=== PATIENT | female | born 1940 | race Caucasian/White ===

== ENCOUNTER 2017-04-13 10:32 | Inpatient (IN) ==
--- NOTE | 2017-04-13 10:44 | Emergency Department Report ---
Medical Clearance HPI - General Chief complaint: Medical Clearance Stated complaint: generations evaluation Time Seen by Provider: 04/13/17 10:43 Source: patient, family Mode of arrival: ambulatory Limitations: no limitations - History of Present Illness HPI Narrative: Patient is a 76-year-old female brought to the emergency room for evaluations for clearance for generations. Patient was apparently inpatient psychiatric at [facility] for dementia with behavioral disturbances discharge 04/08. Patient having increasing difficulty with cares at home, seems almost manic, family contacted generations was accepted patient for admission, as patient has not seen a medical physician in over a week patient was referred to the ER for medical clearance. Patient is laughing no acute distress. MD complaint: medical clearance requested Reason for Medical Clearance: psychiatric condition Traumatic Symptoms: denies traumatic injury Home medications: Home Medications Medication Instructions Recorded Confirmed Acetaminophen [Acetaminophen Extra 1,000 mg PO PRN PRN 04/13/17 04/13/17 Strength] Metoprolol Tartrate [Lopressor] 25 mg PO BID 04/13/17 04/13/17 Quetiapine [Seroquel] 100 mg PO HS 04/13/17 04/13/17 Temazepam [Restoril] 15 mg PO HS PRN 04/13/17 04/13/17 Temazepam [Restoril] 30 mg PO HS 04/13/17 04/13/17 Allergies/Adverse reactions: Allergies Allergy/AdvReac Type Severity Reaction Status Date / Time clindamycin Allergy Verified 04/13/17 10:51 haloperidol [From Haldol] Allergy Restlessnes Verified 04/13/17 10:51 s nitrofurantoin Allergy Verified 04/13/17 10:51 [From Macrobid] Review of Systems Constitutional: Denies: fever, chills, weakness ENT: Denies: throat pain, dental pain Cardiovascular: Denies: chest pain Respiratory: Denies: cough, dyspnea, wheezes Gastrointestinal: Denies: abdominal pain, nausea, vomiting Musculoskeletal: Denies: back pain Psychiatric: Denies: anxiety, depression Endocrine: Denies: fatigue, heat or cold intolerance PFSH Patient Stated Medical History Seizures Yes: HX OF DUE TO LOW SODIUM Hypertension Yes Valvular Heart Disease Yes: MITRAL AND TRICUSPID VALVE PROLAPSE Other Cardiology Yes: HX OF HYPONATREMIA Hx Urinary Tract Infection Yes: FREQUENT - Social History Smoking status: Never smoker Substance use type: does not use Alcohol intake frequency: does not drink Physical Exam - Limitations Limitations: no limitations - General General appearance: alert, in no apparent distress - Eye Eye exam: Present: PERRL, EOMI - ENT ENT exam: Present: normal oropharynx, mucous membranes moist - Neck Neck exam: Present: full ROM, trachea midline - Chest Chest inspection: Present: symmetric chest wall rise. Absent: tenderness - Respiratory Respiratory exam: Present: normal lung sounds bilaterally. Absent: respiratory distress, wheezes, stridor - Cardiovascular Cardiovascular exam: Present: regular rate, normal rhythm, normal heart sounds - Abdominal Exam Abdominal exam: Present: soft, normal bowel sounds. Absent: distention, tenderness - Extremities Exam Extremities exam: Present: full ROM, other (patient does bilateral 1+ edema). Absent: tenderness - Skin Skin exam: Present: warm, dry - Neurological Exam Neurological exam: Present: alert, oriented X3 - Psychiatric Psychiatric exam: Present: other (pleasant laughing) Course Vital Signs Temperature 97.5 F 04/13/17 10:34 Pulse Rate 105 H 04/13/17 10:34 Respiratory Rate 20 04/13/17 10:34 Blood Pressure 162/79 H 04/13/17 10:34 Pulse Oximetry 97 04/13/17 10:34 Temperature 97.5 F 04/13/17 10:34 Pulse Rate 105 H 04/13/17 10:34 Respiratory Rate 20 04/13/17 10:34 Blood Pressure 162/79 H 04/13/17 10:34 Pulse Oximetry 97 04/13/17 10:34 Medical Clearance - [facility] Narrative Medical decision making narrative: He does have some mild signs of urinary tract infection, does have greater than 50 epithelial cells did discuss with hospitalist service, they will wait, cultures pending no treatment at this time. Patient is cleared for generations - Medical Records Attestation: I reviewed the patient's medical records. - Lab Data Attestation: I reviewed the patient's lab results. Result diagrams: 04/13/17 11:40 04/13/17 11:40 Lab Results 04/13/17 04/13/17 04/13/17 Range/Units 11:40 11:40 12:09 WBC 6.6 (4.5-11.0) T/MM3 RBC 4.04 (4.00-5.20) M/MM3 Hgb 12.5 (12-16) GM/DL Hct 38.7 (36-46) % MCV 95.8 (80-100) UM3 MCH 30.9 (26-34) UUG MCHC 32.3 (31-37) GM/DL RDW Std Deviation 42.9 (36.9-50.2) FL Plt Count 277 (130-400) T/MM3 MPV 9.2 L (9.4-12.4) UM3 Immature Gran % (Auto) 0.2 (0.0-0.5) % Neut % (Auto) 53.0 (33-66) % Lymph % (Auto) 36.9 (23-45) % [place] % (Auto) 5.6 (0-9.0) % Eos % (Auto) 3.5 (0-4) % Baso % (Auto) 0.8 (0-2) % Neut # (Auto) 3.5 (1.8-7.7) T/MM3 Lymph # (Auto) 2.4 (1-4.8) T/MM3 [place] # (Auto) 0.4 (0-0.8) T/MM3 Eos # (Auto) 0.2 (0-0.5) T/MM3 Baso # (Auto) 0.1 (0-0.2) T/MM3 Abs Immat Gran (auto) 0.01 (0.00-0.03) T/MM3 Turbidity < 20 (0-20) Sodium 143 (134-144) MEQ/L Potassium 3.7 (3.6-5) MEQ/L Chloride 105 (98-107) MEQ/L Carbon Dioxide 28 (22-30) MEQ/L Anion Gap 10 (5-15) MEQ/L BUN 23.0 H (7-17) MG/DL Creatinine 0.7 (0.7-1.2) MG/DL GFR Calculation 82 BUN/Creatinine Ratio 33 H (6-26) RATIO Glucose 128 H (65-110) MG/DL Calculated Osmolality 281 H (261-280) MOSM/KG Calcium 9.5 (8.4-10.2) MG/DL Total Bilirubin 0.20 (0.20-1.30) MG/DL Icterus Index < 2 (0-7) AST 24 (14-36) U/L ALT 24 (9-52) U/L Alkaline Phosphatase 106 (38-126) U/L Total Protein 7.6 (6.3-8.2) G/DL Albumin 4.3 (3.5-5.0) G/DL Globulin 3.3 (2.4-3.6) G/DL Albumin/Globulin Ratio 1.3 (1.1-2.2) RATIO TSH 1.37 (0.47-4.68) MIU/L Specimen Hemolysis < 15 (0-25) Ur Collection Type Urine, void-cc/notcc Urine Color Yellow (YELLOW) Urine Clarity Clear Urine pH 6.0 (5.0-8.0) Ur Specific [place] 1.025 (1.015-1.025) Urine Protein 1+ A (NEGATIVE) Urine Glucose (UA) Negative (NEGATIVE) Urine Ketones Negative (NEGATIVE) Urine Occult Blood Trace-intact (NEGATIVE) Urine Nitrate Negative (NEGATIVE) Urine Bilirubin Negative (NEGATIVE) Urine Urobilinogen 0.2 (NORMAL) EU/DL Ur Leukocyte Esterase 1+ A (NEGATIVE) Urine RBC 1-3 (0-3) /HPF Urine WBC 10-20 H (0-5) /HPF Ur Squamous Epith Cells >50 Urine Bacteria 2+ H (NEGATIVE) Urine Mucus Present Ur Culture Indicated? Cult reflexed &setup - Radiology Data Attestation: I reviewed the patient's radiology results. No acute cardiopulmonary findings - EKG Data EKG #1 EKG attestation: Yes: I reviewed and interpreted this EKG. EKG shows normal: sinus rhythm Rate: tachycardia Rhythm: NSR Interpretation: no acute changes Disposition Clinical Impression: Dementia with behavioral disturbance Qualifiers: Dementia type: unspecified type Qualified Code(s): F03.91 - Unspecified dementia with behavioral disturbance Disposition: 67 To [facility] Generations Condition: Stable Prescriptions: No Action Temazepam [Restoril] 15 mg PO HS PRN PRN Reason: Insomnia Metoprolol Tartrate [Lopressor] 25 mg PO BID Acetaminophen [Acetaminophen Extra Strength] 1,000 mg PO PRN PRN PRN Reason: Pain Temazepam [Restoril] 30 mg PO HS Quetiapine [Seroquel] 100 mg PO HS Time of Disposition: 12:53 - Seen By: physician
--- NOTE | 2017-04-13 11:02 | XRay Report ---
Indication: cardiac evaluation PROCEDURE: XR chest 1V: Encounter: Initial Comparison: None FINDINGS: The lungs are clear. There is no abnormal airspace opacity, pleural effusion or pneumothorax identified. The heart size, pulmonary vasculature and mediastinum are within normal limits. Mild scoliosis and degenerative change in the spine IMPRESSION: No acute cardiopulmonary abnormality. .
--- OUTSIDE RECORDS SUMMARY | 2017-04-13 11:07 | External Medical Summary | Referral Summary ---
:1940 Author Care Team Providers Name Role Phone Yaya Lizarraga Primary Care Physician Encounter [facility] [id number] Date(s): 04/30/14 - 04/30/14 [facility], Shanika, Internal Medicine [address] [id number] Discharge Diagnosis: Hypertension Discharge Diagnosis: Osteoarthritis of both knees Discharge Diagnosis: Osteoporosis Discharge Diagnosis: Hyperlipidemia Discharge Diagnosis: Mitral valve disease Discharge Diagnosis: Urinary incontinence Discharge Disposition: Home or Self Care Attending Physician: Yaya Lizarraga MD Admitting Physician: Yaya Lizarraga MD Vital Signs Most recent to oldest [Reference Range]: 1 Peripheral Pulse Rate [60-100 bpm] 80 bpm (04/30/14 4:10 PM) Blood Pressure [90-140/60-90 mmHg] 114/74 mmHg (04/30/14 4:10 PM) Problem List Condition Effective Dates Status Health Status Informant Borderline glaucoma Active (disorder)(Confirmed) Bunion, left foot(Confirmed) Active Breast cancer in situ(Confirmed) Active Benign Keratoses(Confirmed) Active Dry eyes(Confirmed) Active Preglaucoma(Confirmed) Active Headaches(Confirmed) Active Hyperlipidemia(Confirmed) Active Hypertension(Confirmed) Active Irregular heart rhythm(Confirmed) Active Basal cell carcinoma of skin, site Active unspecified(Confirmed) Breast cancer(Confirmed)1 Active Mitral valve disease(Confirmed) Active Osteoarthritis of both Active knees(Confirmed) Osteoporosis(Confirmed) Active Palpitations(Confirmed) Active Glaucoma, pigmentary(Confirmed) Active Pure hypercholesterolemia(Confirmed) Active Other and combined 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 Tear film insufficiency, Active unspecified(Confirmed) Tension headaches(Confirmed) Active Trigeminal neuralgia(Confirmed) Active Urinary incontinence(Confirmed)2 Active Vertigo(Confirmed) Active 1L [id number] sling Allergies, Adverse Reactions, Alerts Substance Reaction Severity Status amoxicillin diarrhea Active amoxicillin-clavulanate diarrhea Active meloxicam DIARRHEA Active Medications atenolol 25 mg oral tablet 1 tabs, Oral, Bedtime (once a day), # 90 tabs, 3 Refill(s), Pharmacy: [id number], 1 tabs Oral Bedtime (once a day) Start Date: 03/02/14 Status: Ordered Results No data available for this section Immunizations Vaccine Date Refusal Reason tetanus/diphth/pertuss (Tdap) adult/adol 02/07/13 tetanus/diphth/pertuss (Tdap) adult/adol 04/08/07 influenza virus vaccine, live 12/21/12 influenza virus vaccine, live 01/12/11 pneumococcal 23-polyvalent vaccine 10/17/08 pneumococcal 23-polyvalent vaccine 01/13/01 zoster vaccine live 10/04/11 Procedures Procedure Date Related Diagnosis Body Site BOOGIE BSO - Total abdominal hysterectomy and bilateral 1997 salpingo-oophorectomy Bladder Sling1 Colonoscopy abnormal2 L Lumpectomy3 Sacral Colpopexy 1Urinary [id number] done in 2011 and Hyperplastic polyps removed. Has Hx of Tubular adenomas. Repeat in 5 years.3Breast Cancer Social History Social History Type Response Smoking Status Never smoker Assessment and Plan Extracted from: Title: Office Visit Note Author: Yaya Lizarraga MD Date: 04/30/14 Assessment/Plan Hyperlipidemia For hyperlipidemia she'll return to the lab fasting later this week and I'll let her know the results. Ordered: Lipid Panel Office Visit Level 5 Est 88526 Hypertension She will continue her atenolol. I'll update all of her lab and mail a copy with her note. Ordered: CBC w/ Differential Comprehensive Metabolic Panel Office Visit Level 5 Est 96522 Mitral valve disease In light of her history of mitral valve prolapse and increased shortness of air with exertion I'll have her repeat a 2-D echocardiogram. I'll let her know the results or the findings of this. Ordered: Request for Cardiovascular Echo Osteoarthritis of both knees For osteoarthritis of her knees shows see Dr. Bartlett. She is seen him before. Ordered: Internal Referral to Orthopedic Osteoporosis She'll repeat a bone density test in one to 2 years. I think this is stable. If all of her lab looks okay all see her back in one year or as needed. I did accomplish a comprehensive annual history and physical exam today. Urinary incontinence Get a consult with Dr. Suleman Weeks regarding her concerns for her bladder relaxation and incontinence. Ordered: External Specialty Referral Referrals to Other Providersknee pain, referred to: Christopher Bartlett MD Referred by: Yaya Lizarraga MD incontinence of urine, referred to: Suleman Weeks MD Referred by: Yaya Lizarraga MD
--- OUTSIDE RECORDS SUMMARY | 2017-04-13 11:07 | External Medical Summary | Referral Summary ---
:1940 Author Organization [facility], Shanika, Internal Medicine Address [address] [place] [address] Care Team Providers Name Role Phone Yaya Lizarraga Primary Care Physician Encounter [facility] [id number] Date(s): 11/14/15 - 11/14/15 [facility] Jose [place], Internal Medicine [address] [place] [address] [place] Discharge Diagnosis: Dysuria Discharge Diagnosis: Mitral valve disease Discharge Diagnosis: Hypertension Discharge Diagnosis: Abnormal weight gain Discharge Diagnosis: Heel pain Discharge Disposition: 01-Home or Self Care Attending Physician: Yaya Lizarraga MD Vital Signs Most recent to oldest [Reference Range]: 1 Peripheral Pulse Rate [60-100 bpm] 84 bpm (11/14/15 3:31 PM) Blood Pressure [90-140/60-90 mmHg] 140/80 mmHg (11/14/15 3:31 PM) Problem List Condition Effective Dates Status Health Status Informant Hip pain, left(Confirmed) Active Borderline glaucoma Active (disorder)(Confirmed) Bunion, left foot(Confirmed) Active Breast cancer in situ(Confirmed) Active Combined senile cataract(Confirmed) Active Benign Keratoses(Confirmed) Active Dry eyes(Confirmed) Active Urinary incontinence(Confirmed)1 Active Preglaucoma(Confirmed) Active Status post total left knee Active replacement(Confirmed) Headaches(Confirmed) Active Hyperlipidemia(Confirmed) Active Hypertension(Confirmed) Active Irregular heart rhythm(Confirmed) Active Basal cell carcinoma of skin, site Active unspecified(Confirmed) Breast cancer(Confirmed)2 Active Mitral valve disease(Confirmed) Active Osteoarthritis of both Active knees(Confirmed) Osteoporosis(Confirmed) Active Palpitations(Confirmed) Active Glaucoma, pigmentary(Confirmed) Active Primary osteoarthritis of right Active knee(Confirmed) Pure hypercholesterolemia(Confirmed) Active Other and combined 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 Tear film insufficiency, Active unspecified(Confirmed) Tension headaches(Confirmed) Active Trigeminal neuralgia(Confirmed) Active Vertigo(Confirmed) Active 1Bladder [id number] Lumpectomy Allergies, Adverse Reactions, Alerts Substance Reaction Severity Status amoxicillin diarrhea Active amoxicillin-clavulanate diarrhea Active meloxicam DIARRHEA Active Medications Aleve 220 mg, Oral, BID, 0 Refill(s) Start Date: 05/08/14 Status: Orderedatenolol 25 mg oral tablet See Instructions, 1 TABS ORAL BEDTIME (ONCE A DAY), # 90 tabs, 3 Refill(s), eRx : [id number], 1 TABS ORAL BEDTIME (ONCE A DAY) Start Date: 03/11/15 Status: OrderedCalcium 600+D 2 tabs, Oral, Daily, 0 Refill(s) Start Date: 05/08/14 Status: OrderedFosamax 70 mg oral tablet 70 mg 1 tabs, Oral, qWeek, # 12 tabs, 4 Refill(s), Pharmacy: [email or web address] [id number], 1 tabs OralqWeek Start Date: 06/17/15 Status: Orderedmultivitamin 1 tabs, Oral, Daily, 0 Refill(s) Start Date: 08/07/14 Status: OrderedVitamin D3 2000 intl units oral tablet 1 tabs, Oral, Daily, 0 Refill(s) Start Date: 05/08/14 Status: Ordered Results Hematology Most recent to oldest [Reference Range]: 1 WBC [4.8-10.8 10*3/uL] 7.2 10*3/uL (11/14/15 4:35 PM) RBC [4.00-5.20] 4.30 (11/14/15 4:35 PM) Hgb [12.0-16.0 gm/dL] 13.7 gm/dL (11/14/15 4:35 PM) Hct [37.0-47.0 %] 39.6 % (11/14/15 4:35 PM) MCV [82.0-99.0 fL] 92.1 fL (11/14/15 4:35 PM) MCH [27.0-32.0 pg] 31.9 pg (11/14/15 4:35 PM) MCHC [32.0-36.0 gm/dL] 34.6 gm/dL (11/14/15 4:35 PM) RDW [11.5-14.5 %] 12.8 % (11/14/15 4:35 PM) Platelet [150-400 10*3/uL] 263 10*3/uL (11/14/15 4:35 PM) MPV [8.8-14.8 fL] 9.8 fL (11/14/15 4:35 PM) Immature Granulocytes [0.0-1.0 %] 0.3 % (11/14/15 4:35 PM) Neutrophils [51-75 %] 60 % (11/14/15 4:35 PM) Lymphocytes [20-46 %] 29 % (11/14/15 4:35 PM) Monocytes [4-11 %] 8 % (11/14/15 4:35 PM) Eosinophils [0-4 %] 2 % (11/14/15 4:35 PM) Basophils [0-2 %] 1 % (11/14/15 4:35 PM) Neutro Absolute [1.90-7.00 10*3] 4.34 10*3 (11/14/15 4:35 PM) Lymph Absolute [0.80-3.30 10*3] 2.10 10*3 (11/14/15 4:35 PM) [place] Absolute [0.30-1.00 10*3] 0.57 10*3 (11/14/15 4:35 PM) Eos Absolute [0.00-0.50 10*3] 0.12 10*3 (11/14/15 4:35 PM) Baso Absolute [0.00-0.20 10*3] 0.05 10*3 (11/14/15 4:35 PM) Chemistry Most recent to oldest [Reference Range]: 1 Sodium Lvl [135-144 mEq/L] 140 mEq/L (11/14/15 4:35 PM) Potassium Lvl [3.5-5.2 mEq/L] 4.1 mEq/L (11/14/15 4:35 PM) Chloride [99-111 mEq/L] 103 mEq/L (11/14/15 4:35 PM) CO2 [22-31 mEq/L] 26 mEq/L (11/14/15 4:35 PM) AGAP [3-20] 11 (11/14/15 4:35 PM) BUN [10-20 mg/dL] 12 mg/dL (11/14/15 4:35 PM) Glucose Lvl [70-99 mg/dL] 97 mg/dL (11/14/15 4:35 PM) Creatinine Lvl [0.57-1.11 mg/dL] 0.66 mg/dL (11/14/15 4:35 PM) Calcium Lvl [8.9-10.5 mg/dL] 9.9 mg/dL (11/14/15 4:35 PM) Albumin Lvl [3.4-4.8 gm/dL] 4.4 gm/dL (11/14/15 4:35 PM) Total Protein [6.0-7.6 gm/dL] 6.9 gm/dL (11/14/15 4:35 PM) Globulin [1.8-4.0 gm/dL] 2.5 gm/dL (11/14/15 4:35 PM) ALT [0-55 U/L] 14 U/L (11/14/15 4:35 PM) AST [5-34 U/L] 23 U/L (11/14/15 4:35 PM) Alk Phos [40-150 U/L] 74 U/L (11/14/15 4:35 PM) Bili Total [0.2-1.2 mg/dL] 0.5 mg/dL (11/14/15 4:35 PM) BNP [0-99 pg/mL] 55 pg/mL (11/14/15 4:35 PM) TSH with Reflex Free T4 [0.35-4.94] 1.56 (11/14/15 4:35 PM) Urinalysis Most recent to oldest [Reference Range]: 1 UA Color Yellow (11/14/15 4:35 PM) UA Appear Cloudy *ABN* (11/14/15 4:35 PM) UA pH [5.0-8.0] 7.0 (11/14/15 4:35 PM) UA Leuk Est [Negative] Pos 3+ *ABN* (11/14/15 4:35 PM) UA Nitrite [Negative] Positive *ABN* (11/14/15 4:35 PM) UA Protein [Negative] Negative (11/14/15 4:35 PM) UA Glucose [Negative] Negative (11/14/15 4:35 PM) UA Ketones [Negative] Negative (11/14/15 4:35 PM) UA Urobilinogen [<1.0 mg/dL] 0.2 mg/dL (11/14/15 4:35 PM) UA Bili [Negative] Negative (11/14/15 4:35 PM) UA Blood [Negative] Pos 1+ *ABN* (11/14/15 4:35 PM) UA Spec Grav [1.003-1.030] 1.004 (11/14/15 4:35 PM) Type Clean Catch (11/14/15 4:35 PM) UA WBC [0-4 /HPF] >50 /HPF *ABN* (11/14/15 4:35 PM) UA RBC [0-4] 0-4 (11/14/15 4:35 PM) Epithelial Cells 0-2 (11/14/15 4:35 PM) UA Bacteria Occasional *ABN* (11/14/15 4:35 PM) UA Hyal Cast [0-3] 1-3 (11/14/15 4:35 PM) Immunizations Vaccine Date Refusal Reason tetanus/diphth/pertuss (Tdap) adult/adol 02/07/13 tetanus/diphth/pertuss (Tdap) adult/adol 04/08/07 influenza virus vaccine, live 12/21/12 influenza virus vaccine, live 01/12/11 pneumococcal 13-valent conjugate vaccine 05/17/15 pneumococcal 23-polyvalent vaccine 10/17/08 pneumococcal 23-polyvalent vaccine 01/13/01 zoster vaccine live 10/04/11 Procedures Procedure Date Related Diagnosis Body Site L TKA [facility] BUHR1 08/20/14 Colonoscopy abnormal2 04/15/11 BOOGIE BSO - Total abdominal hysterectomy and 1996 bilateral salpingo-oophorectomy Bladder Sling3 L Lumpectomy4 Sacral Colpopexy 1715.36 OA GLOBAL ENDS 11/18/20142Last done in 2011 and Hyperplastic polyps removed. Has Hx of Tubular adenomas. Repeat in 5 years.3Urinary [id number] Cancer Social History Social History Type Response Smoking Status Never smoker Assessment and Plan Extracted from: Title: Office Visit Note Author: Yaya Lizarraga MD Date: 11/14/15 Assessment/Plan 1.Heel pain She also had heel pain we discussed at the end and I did demonstrate to her how to do stretching exercises for a few months. Ordered: Office Visit Level 4 Est 85104 Return to Clinic 2.Hypertension Blood pressure looks fine today so made no change in treatment for this. Ordered: CBC w/ Differential Comprehensive Metabolic Panel Office Visit Level 4 Est 63800 Return to Clinic TSH with Reflex Free T4 XR Chest 2 Views 3.Abnormal weight gain She does not appear to have abnormal weight gain. Ordered: Albumin/Creatinine Ratio, Urine B-Type Natriuretic Peptide CBC w/ Differential Comprehensive Metabolic Panel Office Visit Level 4 Est 85460 Return to Clinic TSH with Reflex Free T4 4.Mitral valve disease For her mitral valve disease and her tricuspid regurgas well as elevated pulmonaryartery pressures I'll recheck a 2-D echocardiogram,chest x-ray,basic lab. No george tment started or initiated today. I'll see her back here in 2 weeks to go over all of this with her. Ordered: B-Type Natriuretic Peptide CBC w/ Differential Comprehensive Metabolic Panel Office Visit Level 4 Est 42209 Request for Cardiovascular Echo Return to Clinic TSH with Reflex Free T4 XR Chest 2 Views 5.Dysuria For her dysuria we will check a UA and treat accordingly. That's being done today. Ordered: Albumin/Creatinine Ratio, Urine Office Visit Level 4 Est 16193 Urinalysis with Culture if Indicated Referrals to Other Providers Referred by: Yaya Lizarraga MD
--- OUTSIDE RECORDS SUMMARY | 2017-04-13 11:07 | External Medical Summary | Referral Summary ---
:1940 Author Organization [facility], Merry Martinez, Orthopedics Address [address] [place] [address] Care Team Providers Name Role Phone Yaya Lizarraga Primary Care Physician Encounter [facility] Date(s): 09/18/15 - 09/18/15 [facility] [address], Orthopedics [address] [place] [address]- [place] Discharge Diagnosis: Status post total left knee replacement Discharge Diagnosis: Primary osteoarthritis of right knee Discharge Diagnosis: Hip pain, left Discharge Disposition: 01-Home or Self Care Attending Physician: Christopher Bartlett MD Admitting Physician: Christopher Bartlett MD Vital Signs Most recent to oldest [Reference Range]: 1 Respiratory Rate [14-20 br/min] 20 br/min (09/18/15 8:51 AM) Problem List Condition Effective Dates Status Health [...] Active Trigeminal neuralgia(Confirmed) Active Vertigo(Confirmed) Active 1Bladder [id number] Lumpectomy Allergies, Adverse Reactions, Alerts Substance Reaction Severity Status amoxicillin diarrhea Active amoxicillin-clavulanate diarrhea Active meloxicam DIARRHEA Active Medications Aleve 220 mg, Oral, BID, 0 Refill(s) Start Date: 05/08/14 Status: Orderedatenolol 25 mg oral tablet See Instructions, 1 TABS ORAL BEDTIME (ONCE A DAY), # 90 tabs, 3 Refill(s), eRx : [facility] [id number], 1 TABS ORAL BEDTIME (ONCE A DAY) Start Date: 03/11/15 Status: OrderedCalcium 600+D 2 tabs, Oral, Daily, 0 Refill(s) Start Date: 05/08/14 Status: OrderedFosamax 70 mg oral tablet 70 mg 1 tabs, Oral, qWeek, # 12 tabs, 4 Refill(s), Pharmacy: [facility] [id number], 1 tabs OralqWeek Start Date: 06/17/15 Status: Orderedmultivitamin 1 tabs, Oral, Daily, 0 Refill(s) Start Date: 08/07/14 Status: OrderedVitamin D3 2000 intl units oral tablet 1 tabs, Oral, Daily, 0 Refill(s) Start Date: 05/08/14 Status: Ordered Results No data available for this section Immunizations Vaccine Date Refusal Reason tetanus/diphth/pertuss (Tdap) adult/adol 02/07/13 tetanus/diphth/pertuss (Tdap) adult/adol 04/08/07 influenza virus vaccine, live 12/21/12 influenza virus vaccine, live 01/12/11 pneumococcal 13-valent conjugate vaccine 05/17/15 pneumococcal 23-polyvalent vaccine 10/17/08 pneumococcal 23-polyvalent vaccine 01/13/01 zoster vaccine live 10/04/11 Procedures Procedure Date Related Diagnosis Body Site Arthrocentesis, aspiration and/or injection, major 09/18/15 joint or bursa (eg, shoulder, hip, knee, subacromial bursa); without ultrasound guidance L TKA [facility] BUHR1 08/20/14 Colonoscopy abnormal2 04/15/11 BOOGIE BSO - Total abdominal hysterectomy and 1996 bilateral salpingo-oophorectomy Bladder Sling3 L Lumpectomy4 Sacral Colpopexy 1715.36 OA GLOBAL ENDS 11/18/20142Last done in 2011 and Hyperplastic polyps removed. Has Hx of Tubular adenomas. Repeat in 5 years.3Urinary [id number] Cancer Social History Social History Type Response Smoking Status Never smoker Assessment and Plan No data available for this section
--- OUTSIDE RECORDS SUMMARY | 2017-04-13 11:07 | External Medical Summary ---
:1940 Author Organization eClinicalWorks Care Team Providers Name Role Phone Anastacio Weaver Provider Role Unavailable Allergies No Known Allergies Problems Problem Type Condition Code Onset Dates Condition Status Problem Palpitation R00.2 Active Problem Mitral insufficiency I34.0 Active Problem SPENCER (dyspnea on exertion) R06.09 Active Problem Hypertension I10 Active Problem Tricuspid insufficiency I07.1 Active Problem MVP (mitral valve prolapse) I34.1 Active Medications No Known Medications Results No Known Results Summary Purpose eClinicalWorks Submission
--- OUTSIDE RECORDS SUMMARY | 2017-04-13 11:07 | External Medical Summary | Referral Summary ---
:1940 Author Organization [facility], [facility] Address [address] [place] [address] Care Team Providers Name Role Phone Yaya Lizarraga Primary Care Physician Encounter [facility] [id number] Date(s): 03/28/15 - 03/28/15 [facility] [address] [place] [address]- [place] Discharge Diagnosis: Disease Discharge Diagnosis: Urinary incontinence Discharge Diagnosis: Hypertension Discharge Disposition: 01-Home or Self Care Attending Physician: Yaya Lizarraga MD Admitting Physician: Yaya Lizarraga MD Referring Physician: Yaya Lizarraga MD Vital Signs Most recent to oldest [Reference Range]: 1 Peripheral Pulse Rate [60-100 bpm] 84 bpm (03/28/15 9:28 AM) Blood Pressure [90-140/60-90 mmHg] 132/74 mmHg (03/28/15 9:28 AM) Problem List Condition Effective Dates Status [...] Active Trigeminal neuralgia(Confirmed) Active Vertigo(Confirmed) Active 1Bladder ckrop6V Lumpectomy Allergies, Adverse Reactions, Alerts Substance Reaction Severity Status amoxicillin diarrhea Active amoxicillin-clavulanate diarrhea Active meloxicam DIARRHEA Active Medications Aleve 220 mg, Oral, BID, 0 Refill(s) Start Date: 05/08/14 Status: Orderedatenolol 25 mg oral tablet See Instructions, 1 TABS ORAL BEDTIME (ONCE A DAY), # 90 tabs, 3 Refill(s), eRx : [facility], 1 TABS ORAL BEDTIME (ONCE A DAY) Start Date: 03/11/15 Status: OrderedCalcium 600+D 2 tabs, Oral, Daily, 0 Refill(s) Start Date: 05/08/14 Status: Orderedmultivitamin 1 tabs, Oral, Daily, 0 Refill(s) Start Date: 08/07/14 Status: OrderedVitamin D3 2000 intl units oral tablet 1 tabs, Oral, Daily, 0 Refill(s) Start Date: 05/08/14 Status: Ordered Results Urinalysis Most recent to oldest [Reference Range]: 1 UA Color Yellow (03/28/15 10:02 AM) UA Appear Turbid *ABN* (03/28/15 10:02 AM) UA pH [5.0-8.0] 7.5 (03/28/15 10:02 AM) UA Leuk Est [Negative] Pos 3+ *ABN* (03/28/15 10:02 AM) UA Nitrite [Negative] Negative (03/28/15 10:02 AM) UA Protein [Negative] Negative (03/28/15 10:02 AM) UA Glucose [Negative] Negative (03/28/15 10:02 AM) UA Ketones [Negative] Negative (03/28/15 10:02 AM) UA Urobilinogen [<1.0 mg/dL] 0.2 mg/dL (03/28/15 10:02 AM) UA Bili [Negative] Negative (03/28/15 10:02 AM) UA Blood [Negative] Pos 2+ *ABN* (03/28/15 10:02 AM) UA Spec Grav [1.003-1.030] 1.009 (03/28/15 10:02 AM) Type Clean Catch (03/28/15 10:02 AM) UA WBC [0-4 /HPF] >50 /HPF *ABN* (03/28/15 10:02 AM) UA RBC [0-4] 5-10 *ABN* (03/28/15 10:02 AM) UA Bacteria Occasional *ABN* (03/28/15 10:02 AM) Immunizations Vaccine Date Refusal Reason tetanus/diphth/pertuss (Tdap) adult/adol 02/07/13 tetanus/diphth/pertuss (Tdap) adult/adol 04/08/07 influenza virus vaccine, live 12/21/12 influenza virus vaccine, live 01/12/11 pneumococcal 23-polyvalent vaccine 10/17/08 pneumococcal 23-polyvalent vaccine 01/13/01 zoster vaccine live 10/04/11 Procedures Procedure Date Related Diagnosis Body Site L TKA [facility] BUHR1 08/20/14 [facility] BSO - Total abdominal hysterectomy and 1996 bilateral salpingo-oophorectomy Bladder Sling2 Colonoscopy abnormal3 L Lumpectomy4 Sacral Colpopexy 1715.36 OA GLOBAL ENDS 11/18/201464876Elkrhxm upbrpcxibpuu7Hasq done in 2011 and Hyperplastic polyps removed. Has Hx of Tubular adenomas. Repeat in 5 years.4Breast Cancer Social History Social History Type Response Smoking Status Never smoker Assessment and Plan Extracted from: Title: Office Visit Note Author: Yaya Lizarraga MD Date: 03/28/15 Assessment/Plan Disease The skin lesion on her nose we will observe and I'll reevaluate this when she returns for scheduled follow-upvisit. Ordered: Office Visit Level 3 Est 20810 Return to Clinic Hypertension Blood pressure is well-controlled today. I'll reevaluate this when I see her back at scheduledappointment for May. Ordered: Office Visit Level 3 Est 87605 Return to Clinic Urinary incontinence In light of the urinary symptoms we will check a UA today and I'll let her know the results and we will treat accordingly. Ordered: Office Visit Level 3 Est 28400 Urinalysis with Culture if Indicated Referrals to Other Providers Referred by: Yaya Lizarraga MD
--- OUTSIDE RECORDS SUMMARY | 2017-04-13 11:07 | External Medical Summary | Referral Summary ---
:1940 Author Organization [facility], [facility] Address [address] [place] [address] Care Team Providers Name Role Phone Yaya Lizarraga Primary Care Physician Encounter [facility] Date(s): 12/04/15 - 12/04/15 [facility] [address] [place], [place] [address] Discharge Diagnosis: Mitral valve disease Discharge Diagnosis: Hypertension Discharge Diagnosis: Acute UTI Discharge Disposition: 01-Home or Self Care Attending Physician: Yaya Lizarraga MD Admitting Physician: Yaya Lizarraga MD Vital Signs Most recent to oldest [Reference Range]: 1 Peripheral Pulse Rate [60-100 bpm] 96 bpm (12/04/15 4:43 PM) Blood Pressure [90-140/60-90 mmHg] 136/78 mmHg (12/04/15 4:43 PM) Problem List Condition Effective Dates Status [...] Breast cancer(Confirmed)2 Active Mitral valve disease(Confirmed) Active Obesity(Confirmed) Active patient Osteoarthritis of both Active knees(Confirmed) Osteoporosis(Confirmed) Active Palpitations(Confirmed) Active Glaucoma, pigmentary(Confirmed) Active Primary osteoarthritis of right Active knee(Confirmed) Pure hypercholesterolemia(Confirmed) Active Other and combined 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 Tear film insufficiency, Active unspecified(Confirmed) Tension headaches(Confirmed) Active Trigeminal neuralgia(Confirmed) Active Vertigo(Confirmed) Active 1Bladder [id number] Lumpectomy Allergies, Adverse Reactions, Alerts Substance Reaction Severity Status amoxicillin diarrhea Active amoxicillin-clavulanate diarrhea Active meloxicam DIARRHEA Active Medications Aleve 220 mg, Oral, BID, 0 Refill(s) Start Date: 05/08/14 Status: Orderedatenolol 25 mg oral tablet See Instructions, 1 TABS ORAL BEDTIME (ONCE A DAY), # 90 tabs, 3 Refill(s), eRx : [facility] 25196, 1 TABS ORAL BEDTIME (ONCE A DAY) Start Date: 03/11/15 Status: OrderedCalcium 600+D 2 tabs, Oral, Daily, 0 Refill(s) Start Date: 05/08/14 Status: OrderedFosamax 70 mg oral tablet 70 mg 1 tabs, Oral, qWeek, # 12 tabs, 4 Refill(s), Pharmacy: [id number], 1 tabs OralqWeek Start Date: 06/17/15 Status: OrderedMaxzide-25 oral tablet See Instructions, one half tabs Oral Daily, # 45 tabs, 4 Refill(s), Pharmacy: [facility] [id number] Start Date: 12/04/15 Status: Orderedmultivitamin 1 tabs, Oral, Daily, 0 [...] of Tubular adenomas. Repeat in 5 years.3Urinary udepwzlorihn5Rbpxko Cancer Social History Social History Type Response Smoking Status Never smoker Assessment and Plan Extracted from: Title: Office Visit Note Author: Yaya Lizarraga MD Date: 12/04/15 Assessment/Plan 1.Mitral valve disease She has mild to moderate mitral regurg that I don 't think needs any specific change in treatment at this point. Ordered: Office Visit Level 3 Est 33638 Return to Clinic 2.Hypertension For her mild peripheral edema thatoccurs during the day for her blood pressure I'll addgeneric Maxzide at one half tablet each morning. I'll reevaluate this in early May wh en she scheduled for annual history and physical. Remind her a flu shot for about 2 weeks. If her symptoms change before then she is to get back with me. If she wants to see cardiology we will arrange for consult. Ordered: Office Visit Level 3 Est 36635 Return to Clinic 3.Acute UTI In regards to her to leave recent UTIs I'll have her return to the labonSeptember 23 and I'll recheck a UA. She'll have been off her antibiotics for about 8 days. I'll let her know the results. Ordered: Office Visit Level 3 Est 06022 Return to Clinic Urinalysis with Culture if Indicated Referrals to Other Providers Referred by: Yaya Lizarraga MD
--- OUTSIDE RECORDS SUMMARY | 2017-04-13 11:07 | External Medical Summary | Referral Summary ---
:1940 Author Organization [facility], , Opt[facility] Address [address] [address] Care Team Providers Name Role Phone Yaya Lizarraga Primary Care Physician Encounter [facility] [id number] Date(s): 08/15/14 - 08/15/14 [facility], , [facility] [address] [place] [address]- [place] Discharge Diagnosis: Astigmatism Discharge Diagnosis: Presbyopia Discharge Diagnosis: Hyperopia Discharge Disposition: 01-Home or Self Care Attending Physician: Claudia Dominique OD Admitting Physician: Claudia Dominique OD Vital Signs No data available for this section Problem List Condition Effective Dates Status Health Status Informant Borderline glaucoma Active (disorder)(Confirmed) Bunion, left foot(Confirmed) Active Breast cancer in situ(Confirmed) Active Combined senile cataract(Confirmed) Active Benign Keratoses(Confirmed) Active Dry eyes(Confirmed) Active Preglaucoma(Confirmed) Active Status post total left [...] Active Urinary incontinence(Confirmed)2 Active Vertigo(Confirmed) Active 1L Waswsmmvhk6Dfczpia sling Allergies, Adverse Reactions, Alerts Substance Reaction Severity Status amoxicillin diarrhea Active amoxicillin-clavulanate diarrhea Active meloxicam DIARRHEA Active Medications Aleve 220 mg, Oral, BID, 0 Refill(s) Start Date: 05/08/14 Status: Orderedatenolol 25 mg oral tablet 1 tabs, Oral, Bedtime (once a day), # 90 tabs, 3 Refill(s), [facility], 1 tabs Oral Bedtime (once a day) Start Date: 03/02/14 Status: OrderedCalcium 600+D 2 tabs, Oral, Daily, [...] Lumpectomy4 Sacral Colpopexy 1715.36 OA GLOBAL ENDS 11/18/201497765Tkikirr jktpozroklfu9Xaed done in 2011 and Hyperplastic polyps removed. Has Hx of Tubular adenomas. Repeat in 5 years.4Breast Cancer Social History Social History Type Response Smoking Status Never smoker Assessment and Plan Extracted from: Title: Ambulatory Patient Education Author: Claudia Dominique OD Date: 08/15/14 Ophthalmology Presbyopia Presbyopia is when the ability to focus on close objects gets harder or is lost due to age. The ability to focus from near to far is called accommodation . Loss of accommodation is a normal aging proces s and not a disease. It usually begins when people approach their 40's. It continues for several decades until the eye can not focus anymore. Presbyopia is one of the reasons why people need bifocals and reading glasses when they get older. CAUSES Aging. Some medical conditions which cause problems seeing up close. These include: High or low blood sugar. . Weakness of the eye muscles required to bring the eyes in while looking nearby (convergence ). Certain drugs and medicines (muscle relaxants, anti-depressants, ant- anxiety agents etc.) SYMPTOMS A Hard time reading or seeing objects up close. Achy feeling in the eyes while reading. Headaches when reading or focusing up close. Eye strain for activities that need focusing up close. DIAGNOSIS The diagnosis of this problem is easily made on exam by your jewel bearing polisher or line dancer. You should have your eyes checked regularly throughout your life at yearly intervals. TREATMENT Presbyopia is treated with glasses or contact lenses. Ophthalmologists can use painless laser treatments to change the shape of the cornea (the clear covering at the front of the eye). This will not help with close-up vision after a certain age unless the procedure is planned to give only one eye close vision. This should be discussed with the line dancer before having surgery or a laser treatment. These types of approaches may affect the way the eyes work together. Document Released: 01/22/2005 Document Revised: 05/23/2012 Document Reviewed: 05/02/2008 ExitCare Patient Information 2014 [employer]. No follow up information was provided. Extracted from: Title: Eye exam Author: Trip Claudia OD Date: 08/15/14 Impression and Plan Diagnosis Presbyopia (ICD9 367.4, Discharge, Medical). Hyperopia (ICD9 367.0, Discharge, Medical). Astigmatism (ICD9 367.21, Discharge, Medical). Plan: Spec RX given Continue to follow up with Dr. Flores as scheduled Return to clinic in one year. Prescription: Ophthalmology Rx ([facility]) No qualifying data available.
--- OUTSIDE RECORDS SUMMARY | 2017-04-13 11:07 | External Medical Summary | Referral Summary ---
:1940 Author Organization [facility] Address [address] [place] [address] Care Team Providers Name Role Phone Yaya Lizarraga Primary Care Physician Encounter [facility] Date(s): 11/22/15 - 11/22/15 [facility] [address] [place] [address]- [place] Discharge Disposition: 01-Home or Self Care Attending Physician: Yaya Lizarraga MD Admitting Physician: Yaya Lizarraga MD Vital Signs No data available for this [...] Active Trigeminal neuralgia(Confirmed) Active Vertigo(Confirmed) Active 1Bladder [id number] Lumpectomy Allergies, Adverse Reactions, Alerts Substance Reaction Severity Status amoxicillin diarrhea Active amoxicillin-clavulanate diarrhea Active meloxicam DIARRHEA Active Medications Aleve 220 mg, Oral, BID, 0 Refill(s) Start Date: 05/08/14 Status: Orderedatenolol 25 mg oral tablet See Instructions, 1 TABS ORAL BEDTIME (ONCE A DAY), # 90 tabs, 3 Refill(s), eRx : [facility] [id number], 1 TABS ORAL BEDTIME (ONCE A DAY) Start Date: 03/11/15 Status: OrderedBactrim DS 800 mg-160 mg oral tablet 1 tabs, Oral, BID, X 5 days, # 10 tabs, 0 Refill(s), Pharmacy: [facility] [id number] Start Date: 11/20/15 Stop Date: 11/25/15 Status: OrderedCalcium 600+D 2 tabs, Oral, Daily, 0 Refill(s) Start Date: 05/08/14 Status: OrderedFosamax 70 mg oral tablet 70 mg 1 tabs, Oral, qWeek, # 12 tabs, 4 Refill(s), Pharmacy: [facility] 30494, 1 tabs OralqWeek Start Date: 06/17/15 Status: [...] of Tubular adenomas. Repeat in 5 years.3Urinary ipjrcsdvsjyr3Reprse Cancer Social History Social History Type Response Smoking Status Never smoker Assessment and Plan No data available for this section
--- OUTSIDE RECORDS SUMMARY | 2017-04-13 11:08 | External Medical Summary | Referral Summary ---
:1940 Author Organization [facility], [facility] Address [address] [place] [address] Care Team Providers Name Role Phone Yaya Lizarraga Primary Care Physician Encounter [facility] Date(s): 10/03/14 - 10/03/14 [facility] [address] [address] [place] [address]- [place] Discharge Diagnosis: Status post total left knee replacement Discharge Disposition: 01-Home or Self Care Attending Physician: Mike Best APRN Admitting Physician: Mike Best APRN Vital Signs No data available for this [...] Active Trigeminal neuralgia(Confirmed) Active Vertigo(Confirmed) Active 1Bladder cpqas0G Lumpectomy Allergies, Adverse Reactions, Alerts Substance Reaction Severity Status amoxicillin diarrhea Active amoxicillin-clavulanate diarrhea Active meloxicam DIARRHEA Active Medications Aleve 220 mg, Oral, BID, 0 Refill(s) Start Date: 05/08/14 Status: Orderedatenolol 25 mg oral tablet See Instructions, 1 TABS ORAL BEDTIME (ONCE A DAY), # 90 tabs, 3 Refill(s), eRx : [facility] [address], 1 TABS ORAL BEDTIME (ONCE A DAY) [...] Date Related Diagnosis Body Site L TKA C BUHR1 08/20/14 [facility] BSO - Total abdominal hysterectomy and 1996 bilateral salpingo-oophorectomy Bladder Sling2 Colonoscopy abnormal3 L Lumpectomy4 Sacral Colpopexy 1715.36 OA GLOBAL ENDS 11/18/[id number] xtxylxjgltmm8Jlgr done in 2011 and Hyperplastic polyps removed. Has Hx of Tubular adenomas. Repeat in 5 years.4Breast Cancer Social History Social History Type Response Smoking Status Never smoker Assessment and Plan Extracted from: Title: Office Visit Note Author: Mike Best APRN Date: 10/03/14 Assessment/Plan 1.Status post total left knee replacement Reviewed radiographs taken September 04, 2014 with the patient. Left total knee components are in excellent position. Patient does have some arthritic del rio ges in the right knee. Discussed the degenerative aspect of arthritis with the patient. Patient is quite pleased results of her left knee replacement. Recommend continuing with physical therapy an d home exercise program for continued rehabilitation on the left knee and lower extremity. Counseled patient on antibiotic prophylaxis. Patient will follow-up on an as-needed basis. Patient call w ith any questions or concerns during care and treatment of her left knee replacement and right knee arthritis. Patient is in agreement with this plan. Ordered: Postoperative Est [id number]
--- OUTSIDE RECORDS SUMMARY | 2017-04-13 11:08 | External Medical Summary | Referral Summary ---
:1940 Author Organization [facility], [facility] Address [address] [place] [address] Care Team Providers Name Role Phone Yaya Lizarraga Primary Care Physician Encounter [facility] Date(s): 01/16/16 - 01/16/16 [facility] [address] [place] [address]- [place] Discharge Diagnosis: Palpitations Discharge Diagnosis: Hypertension Discharge Diagnosis: Acute UTI Discharge Disposition: 01-Home or Self Care Attending Physician: Yaya Lizarraga MD Admitting Physician: Yaya Lizarraga MD Vital Signs Most recent to oldest [Reference Range]: 1 Peripheral Pulse Rate [60-100 bpm] 96 bpm (01/16/16 4:02 PM) Blood Pressure [90-140/60-90 mmHg] 146/88 mmHg *HI* (01/16/16 4:02 PM) Problem List Condition Effective Dates Status [...] Active Trigeminal neuralgia(Confirmed) Active Vertigo(Confirmed) Active 1Bladder zfucj6O Lumpectomy Allergies, Adverse Reactions, Alerts Substance Reaction Severity Status amoxicillin diarrhea Active amoxicillin-clavulanate diarrhea Active meloxicam DIARRHEA Active Medications Aleve 220 mg, Oral, BID, 0 Refill(s) Start Date: 05/08/14 Status: Orderedatenolol 25 mg oral tablet See Instructions, 1 TABS ORAL BEDTIME (ONCE A DAY), # 90 tabs, 3 Refill(s), eRx : [facility] [id number], 1 TABS ORAL BEDTIME (ONCE A DAY) Start Date: 03/11/15 Status: OrderedCalcium 600+D 2 tabs, Oral, Daily, 0 Refill(s) Start Date: 05/08/14 Status: OrderedFosamax 70 mg oral tablet 70 mg 1 tabs, Oral, qWeek, # 12 tabs, 4 Refill(s), Pharmacy: [facility] [id number], 1 tabs OralqWeek Start Date: 06/17/15 Status: Orderedlosartan 25 mg oral tablet 25 mg 1 tabs, Oral, Daily, # 30 tabs, 2 Refill(s), Pharmacy: [facility] 60472, 1 tabs OralDaily Start Date: 01/10/16 Status: Orderedlosartan 50 mg oral tablet 50 mg 1 tabs, Oral, Daily, # 90 tabs, 4 Refill(s), Pharmacy: [facility] 60193, 1 tabs OralDaily Start Date: 01/16/16 Status: Orderedmultivitamin 1 tabs, Oral, Daily, 0 Refill(s) Start Date: 08/07/14 Status: OrderedVitamin D3 2000 intl units oral tablet 1 tabs, Oral, Daily, 0 Refill(s) Start Date: 05/08/14 Status: Ordered Results No data available for this section Immunizations Vaccine Date Refusal Reason tetanus/diphth/pertuss (Tdap) adult/adol 02/07/13 tetanus/diphth/pertuss (Tdap) adult/adol 04/08/07 influenza virus vaccine, inactivated 12/25/15 influenza virus vaccine, live 12/21/12 influenza virus [...] of Tubular adenomas. Repeat in 5 years.3Urinary cuqqtxglpyqt4Aplsqk Cancer Social History Social History Type Response Smoking Status Never smoker Assessment and Plan Extracted from: Title: Office Visit Note Author: Yaya Lizarraga MD Date: 01/16/16 Assessment/Plan 1.Hypertension For her blood pressure I'll increase her losartan to 50 mg a day and I'll reevaluate this in about 2-1/2 months. Ordered: losartan, 50 mg 1 tabs, Oral, Daily, # 90 tabs, 4 Refill(s), [facility] [address], 1 tabs Oral Daily Office Visit Level 3 Est [id number] Return to Clinic 2.Palpitations Palpitations stable and controlled on atenolol 25 mg which she should continue. Ordered: Office Visit Level 3 Est [id number] Return to Clinic 3.Acute UTI (UTI she is on Cipro now. She's developed a resistant Escherichia coli type organism which Well may be due toto her previousbladder sling surgeryin which mesh was used. We talked about all of this. She isgoing to have a urology evaluation next week. I'll see her back here in 2-1/2 months. She has had her flu shot. Referrals to Other Providers Referred by: Yaya Lizarraga MD
--- OUTSIDE RECORDS SUMMARY | 2017-04-13 11:08 | External Medical Summary | Referral Summary ---
:1940 Author Organization [facility] Address [address] [place] [address] Care Team Providers Name Role Phone Yaya Lizarraga Primary Care Physician Encounter [facility] Date(s): 08/20/14 - 08/20/14 [facility] [address] [address] [place] [address]- [place] Discharge Disposition: 01-Home or Self Care Attending Physician: Christopher Bartlett MD Admitting Physician: Christopher Bartlett MD Referring Physician: Yaya Lizarraga MD Vital Signs No [...] Active Urinary incontinence(Confirmed)2 Active Vertigo(Confirmed) Active 1L Eceunpsrhf9Fldnlwj sling Allergies, Adverse Reactions, Alerts Substance Reaction Severity Status amoxicillin diarrhea Active amoxicillin-clavulanate diarrhea Active meloxicam DIARRHEA Active Medications Aleve 220 mg, Oral, BID, 0 Refill(s) Start Date: 05/08/14 Status: Orderedatenolol 25 mg oral tablet 1 tabs, Oral, Bedtime (once a day), # 90 tabs, 3 Refill(s), Pharmacy: [facility] [address], 1 tabs Oral Bedtime (once a day) [...] Procedures Procedure Date Related Diagnosis Body Site Arthroplasty, knee, condyle and plateau; medial 08/20/14 AND lateral compartments with or without patella resurfacing (total knee arthroplasty) Arthroplasty, knee, condyle and plateau; medial 08/20/14 AND lateral compartments with or without patella resurfacing (total knee arthroplasty) Arthroplasty, knee, condyle and plateau; medial 08/20/14 AND lateral compartments with or without patella resurfacing (total knee arthroplasty) Arthroplasty, knee, condyle and plateau; medial 08/20/14 AND lateral compartments with or without patella resurfacing (total knee arthroplasty) L TKA [facility] BUHR1 08/20/14 [facility] BSO - Total abdominal hysterectomy and 1996 bilateral salpingo-oophorectomy Bladder Sling2 Colonoscopy abnormal3 L Lumpectomy4 Sacral Colpopexy 1715.36 OA GLOBAL ENDS 11/18/201420370Vzkiynd xoebtqgpyxeh9Zlyg done in 2011 and Hyperplastic polyps removed. Has Hx of Tubular adenomas. Repeat in 5 years.4Breast Cancer Social History Social History Type Response Smoking Status Never smoker Assessment and Plan No data available for this section
--- OUTSIDE RECORDS SUMMARY | 2017-04-13 11:08 | External Medical Summary | Referral Summary ---
:1940 Author Organization [facility] Address [address] [place] [address] Care Team Providers Name Role Phone Yaya Lizarraga Primary Care Physician Encounter VC Date(s): 08/14/14 - 08/14/14 [facility] [address] [place] [address]- [place] Discharge Disposition: 01-Home or Self Care Attending Physician: Holger Ramos MD Admitting Physician: Holger Ramos MD Vital Signs No data available for [...] Active Urinary incontinence(Confirmed)2 Active Vertigo(Confirmed) Active 1L Kdglbdneja6Nnwgwqj sling Allergies, Adverse Reactions, Alerts Substance Reaction Severity Status amoxicillin diarrhea Active amoxicillin-clavulanate diarrhea Active meloxicam DIARRHEA Active Medications Aleve 220 mg, Oral, BID, 0 Refill(s) Start Date: 05/08/14 Status: Orderedatenolol 25 mg oral tablet 1 tabs, Oral, Bedtime (once a day), # 90 tabs, 3 Refill(s), Pharmacy: [id number], 1 tabs Oral Bedtime (once a day) [...] Lumpectomy4 Sacral Colpopexy 1715.36 OA GLOBAL ENDS 11/18/201430787Fucvwfq cfspvdeyylqk4Uhvg done in 2011 and Hyperplastic polyps removed. Has Hx of Tubular adenomas. Repeat in 5 years.4Breast Cancer Social History Social History Type Response Smoking Status Never smoker Assessment and Plan No data available for this section
--- OUTSIDE RECORDS SUMMARY | 2017-04-13 11:08 | External Medical Summary | Referral Summary ---
:1940 Author Organization [facility] Address [address] [place] [address] Care Team Providers Name Role Phone Yaya Lizarraga Primary Care Physician Encounter VC Date(s): 08/07/14 - 08/07/14 [facility] [address] [address] [place] [address]- [place] Discharge Diagnosis: Osteoarthritis of both knees Discharge Disposition: 01-Home or Self Care Attending [...] Active Urinary incontinence(Confirmed)2 Active Vertigo(Confirmed) Active 1L Npxnyznimz3Efacadw sling Allergies, Adverse Reactions, Alerts Substance Reaction Severity Status amoxicillin diarrhea Active amoxicillin-clavulanate diarrhea Active meloxicam DIARRHEA Active Medications Aleve 220 mg, Oral, BID, 0 Refill(s) Start Date: 05/08/14 Status: Orderedatenolol 25 mg oral tablet 1 tabs, Oral, Bedtime (once a day), # 90 tabs, 3 Refill(s), Pharmacy: [facility] [id number], 1 tabs Oral Bedtime (once a day) [...] Body Site L TKA [facility] BUHR1 08/20/14 Arthrocentesis, aspiration and/or injection, 08/07/14 major joint or bursa (eg, shoulder, hip, knee, subacromial bursa); without ultrasound guidance [facility] BSO - Total abdominal hysterectomy and 1996 bilateral salpingo-oophorectomy Bladder Sling2 Colonoscopy abnormal3 L Lumpectomy4 Sacral Colpopexy 1715.36 OA GLOBAL ENDS 11/18/201455535Wgdtngi ybmhhrdtffsr4Xwck done in 2011 and Hyperplastic polyps removed. Has Hx of Tubular adenomas. Repeat in 5 years.4Breast Cancer Social History Social History Type Response Smoking Status Never smoker Assessment and Plan Extracted from: Title: Office Visit Note Author: Mike Best APRN Date: 08/07/14 Assessment/Plan 1.Osteoarthritis of both knees Reviewed radiographs with the patient and . Patient does have arthritic changes in both knees. Patient reports that she does have progressive knee pain bila terally left side greater than right. Patient has tried nonsurgical treatment to include medications, intra-articular injections steroid and this close supplementation, activity modification and time without sniffing relief from her bilateral knee pain. Patient has discussed in the past with Dr. Bartlett that eventually she would need knee replacement surgery. Treatment options were discussed today and recommendation is made for left total knee arthroplasty and right knee intra-articular steroid injection. Patient is agreement with this plan. The total knee arthroplasty procedure was discussed in detail with the patient. Patient had been provided with a knee replacement booklet in the past which she did review. All questions were answered during today's visit regarding the knee replaceme nt procedure. Patient extends the risks, benefits, potential outcomes and complications of the proposed procedure. Patient has elected proceed with left knee replacement in the near future and a right knee intra-articular steroid injection today. Procedure note: After written informed consent was obtained for a right knee intra-articular steroid injection, the patient was placed in a sitting position. The injection site was cleaned with three Betadine swabs. 3 mL of one percent plain lidocaine was injected using a 25-gauge needle into the right anterolateral knee injection site. After this local had set up, a mixture of 80mg of Kenalog and 3 mL of half perc ent plain Bupivacaine was injected using a 20-gauge spinal needle into the right intra-articular space. Sterile technique was used throughout the procedure. The injection site was cleaned with alcohol a nd a Band-Aid was applied. The patient tolerated the procedure without difficulty. The patient was advised to contact our office if this injection does not bring some relief. Ordered: bupivacaine, 3 mL=, IntraARTICULAR , Once, First Dose: 08/07/14 12:00:00 CDT, Stop Date: 08/07/14 12:00:00 CDT, [facility] [id number], Form: Injection triamcinolone, 2 mL, IntraARTICULAR, Once, First Dose: 08/07/14 12:00:00 CDT, Stop Date: 08/07/14 12:00:00 CDT, [facility] [id number], Form: Injection Arthro/Asp Major Joint Inj (Shoulder, Hip, Knee) 90239 Office Visit Level 2 Est 04698
--- OUTSIDE RECORDS SUMMARY | 2017-04-13 11:08 | External Medical Summary | Referral Summary ---
:1940 Author Organization [facility] Address [address] [place] [address] Care Team Providers Name Role Phone Yaya Lizarraga Primary Care Physician Encounter VC Date(s): 08/07/15 - 08/07/15 [facility] [address] [address] [place] [address]- [place] Discharge Diagnosis: Status post total left knee replacement Discharge Disposition: 01-Home or Self Care Attending Physician: Rolando Matos Admitting Physician: Rolando Matos Vital Signs Most recent to oldest [Reference Range]: 1 Respiratory Rate [14-20 br/min] 18 br/min (08/07/15 10:01 AM) Problem List Condition Effective Dates Status [...] Active Trigeminal neuralgia(Confirmed) Active Vertigo(Confirmed) Active 1Bladder ovdlz4H Lumpectomy Allergies, Adverse Reactions, Alerts Substance Reaction Severity Status amoxicillin diarrhea Active amoxicillin-clavulanate diarrhea Active meloxicam DIARRHEA Active Medications Aleve 220 mg, Oral, BID, 0 Refill(s) Start Date: 05/08/14 Status: Orderedatenolol 25 mg oral tablet See Instructions, 1 TABS ORAL BEDTIME (ONCE A DAY), # 90 tabs, 3 Refill(s), eRx : [id number], 1 TABS ORAL BEDTIME (ONCE A DAY) Start Date: 03/11/15 Status: OrderedCalcium 600+D 2 tabs, Oral, Daily, 0 Refill(s) Start Date: 05/08/14 Status: OrderedFosamax 70 mg oral tablet 70 mg 1 tabs, Oral, qWeek, # 12 tabs, 4 Refill(s), Pharmacy: [facility] [address]509, 1 tabs OralqWeek Start Date: 06/17/15 Status: [...] of Tubular adenomas. Repeat in 5 years.3Urinary jfmcvremnxvy8Sreiuj Cancer Social History Social History Type Response Smoking Status Never smoker Assessment and Plan Extracted from: Title: Office Visit Note Author: Rolando Matos Date: 08/07/15 Assessment/Plan Left knee pain Ordered: XR Knee 3 Views Left XR Knee Standing AP Bilateral Status post total left knee replacement Plan: Advised her to do low-impact straightahead activities. Also talked with her aboutdiscussing the lower extremity edema with her primary care provider if that persists or becomes worse. She was to try to come in sometime around the end of August or beginning of September to get an injection in that left knee before going [place] and advised her that would be very reasonable. If she has questions concerns or problems at any point she is to call. I talked with her about taking antibiotics prior to dental procedures up through 2 years from the time of this replacement. Ordered: Office Visit Level 3 Est 37422
--- OUTSIDE RECORDS SUMMARY | 2017-04-13 11:08 | External Medical Summary | Referral Summary ---
:1940 Author Organization [facility] Address [address] [place] [address] Care Team Providers Name Role Phone Yaya Lizarraga Primary Care Physician Encounter VC Date(s): 09/04/14 - 09/04/14 [facility] [address] [address] [place] [address]- [place] Discharge Diagnosis: Osteoarthritis of both knees Discharge Diagnosis: Status post total left knee [...] Active Urinary incontinence(Confirmed)2 Active Vertigo(Confirmed) Active 1L Exonrtkdyp6Qhtsjqg sling Allergies, Adverse Reactions, Alerts Substance Reaction Severity Status amoxicillin diarrhea Active amoxicillin-clavulanate diarrhea Active meloxicam DIARRHEA Active Medications Aleve 220 mg, Oral, BID, 0 Refill(s) Start Date: 05/08/14 Status: Orderedatenolol 25 mg oral tablet See Instructions, 1 TABS ORAL BEDTIME (ONCE A DAY), # 90 tabs, 3 Refill(s), eRx : [facility] [address], 1 TABS ORAL BEDTIME (ONCE A DAY) [...] Date Related Diagnosis Body Site L TKA [facility] BUHR1 08/20/14 [facility] BSO - Total abdominal hysterectomy and 1996 bilateral salpingo-oophorectomy Bladder Sling2 Colonoscopy abnormal3 L Lumpectomy4 Sacral Colpopexy 1715.36 OA GLOBAL ENDS 11/18/201473445Dpqviwa flgrqvprrpiw1Agwr done in 2011 and Hyperplastic polyps removed. Has Hx of Tubular adenomas. Repeat in 5 years.4Breast Cancer Social History Social History Type Response Smoking Status Never smoker Assessment and Plan Extracted from: Title: Office Visit Note Author: Mike Best APRN Date: 09/04/14 Assessment/Plan 1.Osteoarthritis of both knees Ordered: Postoperative Est 15752 Request for Therapies 2.Status post total left knee replacement Reviewed radiographs taken today with the patient and . Discussed both the left total knee components and procedure. Discussed patient's progre ss and prognosis. Continue with structured physical therapy for rehabilitation on the left knee. Patient will be transitioning into outpatient physical therapy. Patient was right with a prescripti on for physical therapy 3 times a week for 4 weeks. Patient instructed to continue with daily home exercises. Patient education material was provided to the patient which does describe these exercis es in detail. Nicole removed from left anterior knee incision. Application Steri-Strips over this incision. Discussed wound care with the patient. Continue with [place] for pain relief. Discuss ed the importance of reducing the pain in the left knee to allow her to push harder in physical therapy. Patient voiced understanding. Discontinue aspirin for DVT prophylaxis. Instructed patient t o begin taking Aleve 2 tablets twice a day to help with both pain control and reduction in swelling. Patient was provided with implant card for left total knee components. Patient was provided a handi capped placard application for use over the next 2 months. Patient will follow-up in one month for reevaluation. Patient call with any questions or concerns during care and treatment of her left knee. Patient is in agreement with this plan. Ordered: Postoperative Est 95040 Request for Therapies Orders: HYDROcodone-acetaminophen, 1-2 tabs, Oral, q4hr, as needed for pain, Max 8 tabs per 24 hours not to exceed 8 tablets/day, # 60 tabs, 0 Refill(s) Extracted from: Title: Ambulatory Patient Education Author: Mike Best APRN Date: Family Medicine Knee Rehabilitation, Guidelines Following Surgery Results after knee surgery are often greatly improved when you follow the exercise, range of motion and muscle strengthening exercises prescribed by your doctor. Safety measures are also important to pr otect the knee from further injury. Any time any of these exercises cause you to have increased pain or swelling in your knee joint, decrease the amount until you are comfortable again and slowly increa se them. If you have problems or questions, call your caregiver or physical therapist for advice. HOME CARE INSTRUCTIONS Remove items at home which could result in a fall. This includes throw rugs or furniture in walking pathways. Continue medications as instructed. You may shower or take tub baths when your nicole or stitches are removed or as instructed. Walk using crutches or walker as instructed. Put weight on your legs and walk as much as is comfortable. You may resume a sexual relationship in one month or when given the OK by your doctor. Return to work as instructed by your doctor. Do not drive a car for 6 weeks or as instructed. Wear elastic stockings until instructed not to. Make sure you keep all of your appointments after your operation with all of your doctors and caregivers. RANGE OF MOTION AND STRENGTHENING EXERCISES Rehabilitation of the knee is important following a knee injury or an operation. After just a few days of immobilization, the muscles of the thigh which control the knee become weakened and shrink (atro phy). Knee exercises are designed to build up the tone and strength of the thigh muscles and to improve knee motion. Often times heat used for twenty to thirty minutes before working out will loosen up your tissues and help with improving the range of motion. These exercises can be done on a training (exercise) mat, on the floor, on a table or on a bed. Use what ever works the best and is most comfortable for you Knee exercises include: Leg Lifts - While your knee is still immobilized in a splint or cast, you can do straight leg raises. Lift the leg to 60 degrees, hold for 3 sec, and slowly lower the leg. Repeat 10-20 times 2-3 ti mes daily. Perform this exercise against resistance later as your knee gets better. Quad and Hamstring Sets - Tighten up the muscle on the front of the thigh (Quad) and hold for 5-10 sec. Repeat this 10-20 times hourly. Hamstring sets are done by pushing the foot backward against an object and holding for 5-10 sec. Repeat as with quad sets. Resistance and Weight exercises - After your knee no longer needs to be immobilized, progressive motion, resistance, and weight lifting exercises should be performed. This is best done under the gu idance of a physical therapist. You may safely start with wall squats; with your feet 10 inches from a wall, place your back flat against the wall and lower your trunk about 6 inches until you feel work in your thighs. Hold 20-40 seconds, then rise slowly. Do 3-6 repetitions 2-3 times daily. Endurance Training - Bicycle and walking are helpful in restoring strength and endurance to the leg. A rehabilitation program following serious knee injuries can speed recovery and prevent re-injury in the future due to weakened muscles. Contact your doctor or a physical therapist for more information on knee rehabilitation. MAKE SURE YOU: Understand these instructions. Will watch your condition. Will get help right away if you are not doing well or get worse. Document Released: 03/01/2006 Document Revised: 05/23/2012 Document Reviewed: 08/19/2007 [facility] Patient Information 2014 [employer]. Knee Exercises EXERCISES RANGE OF MOTION(ROM) AND STRETCHING EXERCISES These exercises may help you when beginning to rehabilitate your injury. Your symptoms may resolve with or without further involvement from your physician, physical therapist or athletic equipment manager. While completing these exercises, remember: Restoring tissue flexibility helps normal motion to return to the joints. This allows healthier, less painful movement and activity. An effective stretch should be held for at least 30 seconds. A stretch should never be painful. You should only feel a gentle lengthening or release in the stretched tissue. STRETCH - Knee Extension, Prone Lie on your stomach on a firm surface, such as a bed or countertop. Place your right / left knee and leg just beyond the edge of the surface. You may wish to place a towel under the far end of your right / left thigh for comfort. Relax your leg muscles and allow gravity to straighten your knee. Your clinician may advise you to add an ankle weight if more resistance is helpful for you. You should feel a stretch in the back of your right / left knee. Hold this position for seconds. Repeat times. Complete this stretch times per day. * Your physician, physical therapist or athletic equipment manager may ask you to add ankle weight to enhance your stretch. RANGE OF MOTION - Knee Flexion, Active Lie on your back with both knees straight. (If this causes back discomfort , bend your opposite knee, placing your foot flat on the floor.) Slowly slide your heel back toward your buttocks until you feel a gentle stretch in the front of your knee or thigh. Hold for seconds. Slowly slide your heel back to the starting position. Repeat times. Complete this exercise times per day. STRETCH - Quadriceps, Prone Lie on your stomach on a firm surface, such as a bed or padded floor. Bend your right / left knee and grasp your ankle. If you are unable to reach, your ankle or pant leg, use a belt around your foot to lengthen your reach. Gently pull your heel toward your buttocks. Your knee should not slide out to the side. You should feel a stretch in the front of your thigh and/or knee. Hold this position for seconds. Repeat times. Complete this stretch times per day. STRETCH Hamstrings, Supine Lie on your back. Loop a belt or towel over the ball of your right / left foot. Straighten your right / left knee and slowly pull on the belt to raise your leg. Do not allow the right / left knee to bend. Keep your opposite leg flat on the floor. Raise the leg until you feel a gentle stretch behind your right / left knee or thigh. Hold this position for seconds. Repeat times. Complete this stretch times per day. STRENGTHENING EXERCISES These exercises may help you when beginning to rehabilitate your injury. They may resolve your symptoms with or without further involvement from your physician, physical therapist or athletic equipment manager. While completing these exercises, remember: Muscles can gain both the endurance and the strength needed for everyday activities through controlled exercises. Complete these exercises as instructed by your physician, physical therapist or athletic equipment manager. Progress the resistance and repetitions only as guided. You may experience muscle soreness or fatigue, but the pain or discomfort you are trying to eliminate should never worsen during these exercises. If this pain does worsen, stop and make certain you are following the directions exactly. If the pain is still present after adjustments, discontinue the exercise until you can discuss the trouble with your clinician. STRENGTH - Quadriceps, Isometrics Lie on your back with your right / left leg extended and your opposite knee bent. Gradually tense the muscles in the front of your right / left thigh. You should see either your knee cap slide up toward your hip or increased dimpling just above the knee. This motion will push th e back of the knee down toward the floor/mat/bed on which you are lying. Hold the muscle as tight as you can without increasing your pain for seconds. Relax the muscles slowly and completely in between each repetition. Repeat times. Complete this exercise times per day. STRENGTH - Quadriceps, Short Arcs Lie on your back. Place a inch towel roll under your knee so that the knee slightly bends. Raise only your lower leg by tightening the muscles in the front of your thigh. Do not allow your thigh to rise. Hold this position for seconds. Repeat times. Complete this exercise times per day. OPTIONAL ANKLE WEIGHTS: Begin with , but DO NOT exceed ____ . Increase in 1 pound/0.5 kilogram increments. STRENGTH - Quadriceps, Straight Leg Raises Quality counts! Watch for signs that the quadriceps muscle is working to insure you are strengthening the correct muscles and not "cheating" by substituting with healthier muscles. Lay on your back with your right / left leg extended and your opposite knee bent. Tense the muscles in the front of your right / left thigh. You should see either your knee cap slide up or increased dimpling just above the knee. Your thigh may even quiver. Tighten these muscles even more and raise your leg 4 to 6 inches off the floor. Hold for seconds. Keeping these muscles tense, lower your leg. Relax the muscles slowly and completely in between each repetition. Repeat times. Complete this exercise times per day. STRENGTH - Hamstring, Curls Lay on your stomach with your legs extended. (If you lay on a bed, your feet may hang over the edge.) Tighten the muscles in the back of your thigh to bend your right / left knee up to 90 degrees. Keep your hips flat on the bed/floor. Hold this position for seconds. Slowly lower your leg back to the starting position. Repeat times. Complete this exercise times per day. OPTIONAL ANKLE WEIGHTS: Begin with , but DO NOT exceed ____ . Increase in 1 pound/0.5 kilogram increments. STRENGTH Quadriceps, Squats culinary director a door frame so that your feet and knees are in line with the frame. Use your hands for balance, not support, on the frame. Slowly lower your weight, bending at the hips and knees. Keep your lower legs upright so that they are parallel with the door frame. Squat only within the range that does not increase your knee pain. Never let your hips drop below your knees. Slowly return upright, pushing with your legs, not pulling with your hands. Repeat times. Complete this exercise times per day. STRENGTH - Quadriceps, Wall Slides Follow guidelines for form closely. Increased knee pain often results from poorly placed feet or knees. Lean against a smooth wall or door and walk your feet out 18-[address] your feet hip-width apart. Slowly slide down the wall or door until your knees bend degrees.* Keep your knees over your heels, not your toes, and in line with your hips, not falling to either side. Hold for seconds. Stand up to rest for seconds in between each repetition. Repeat times. Complete this exercise times per day. * Your physician, physical therapist or athletic equipment manager will alter this angle based on your symptoms and progress. Document Released: 01/13/2006 Document Revised: 05/23/2012 Document Reviewed: 06/13/2009 [employer] Patient Information 2013 [employer] [facility]. No follow up information was provided.
--- OUTSIDE RECORDS SUMMARY | 2017-04-13 11:08 | External Medical Summary | Referral Summary ---
:1940 Author Organization [facility] Address [address] [place] [address] Care Team Providers Name Role Phone Yaya Lizarraga Primary Care Physician Encounter VC Date(s): 08/07/14 - 08/07/14 [facility] [address] [address] [place] [address]- [place] Discharge Diagnosis: Osteoarthritis of [...] Active Urinary incontinence(Confirmed)2 Active Vertigo(Confirmed) Active 1L Snqxvaunby5Yszgxxh sling Allergies, Adverse Reactions, Alerts Substance Reaction Severity Status amoxicillin diarrhea Active amoxicillin-clavulanate diarrhea Active meloxicam DIARRHEA Active Medications Aleve 220 mg, Oral, BID, 0 Refill(s) Start Date: 05/08/14 Status: Orderedatenolol 25 mg oral tablet 1 tabs, Oral, Bedtime (once a day), # 90 tabs, 3 Refill(s), Pharmacy: [facility], 1 tabs Oral Bedtime (once a day) [...] Lumpectomy4 Sacral Colpopexy 1715.36 OA GLOBAL ENDS 11/18/201424321Iilqzhs uqmlvzxdmqwe0Heam done in 2011 and Hyperplastic polyps removed. [...] 12:00:00 CDT, Stop Date: 08/07/14 12:00:00 CDT, [facility] [id number], Form: Injection triamcinolone, 2 mL, IntraARTICULAR, Once, First Dose: 08/07/14 12:00:00 CDT, Stop Date: 08/07/14 12:00:00 CDT, [facility] [id number], Form: Injection Arthro/Asp Major Joint Inj (Shoulder, Hip, Knee) 34389 Office Visit Level 2 Est 84759
--- OUTSIDE RECORDS SUMMARY | 2017-04-13 11:08 | External Medical Summary | Referral Summary ---
:1940 Author Organization [facility] Address [address] [place] [address] Care Team Providers Name Role Phone Yaya Lizarraga Primary Care Physician Encounter [facility] Date(s): 03/06/16 - 03/06/16 [facility] [address] [place] [address]- [place] Discharge Disposition: 01-Home or Self Care Attending Physician: Deandre Cochran MD Admitting Physician: Deandre Cochran MD Vital Signs Most recent to oldest [Reference Range]: 1 Respiratory Rate [14-20 br/min] 18 br/min (03/06/16 9:58 AM) Blood Pressure [90-140/60-90 mmHg] 130/80 mmHg (03/06/16 9:58 AM) Problem List Condition Effective Dates Status [...] Active Trigeminal neuralgia(Confirmed) Active Vertigo(Confirmed) Active 1Bladder gqwft5G Lumpectomy Allergies, Adverse Reactions, Alerts Substance Reaction Severity Status amoxicillin diarrhea Active amoxicillin-clavulanate diarrhea Active meloxicam DIARRHEA Active Medications Aleve 220 mg, Oral, BID, 0 Refill(s) Start Date: 05/08/14 Status: Orderedatenolol 25 mg oral tablet See Instructions, TAKE 1 TABLET BY MOUTH AT BEDTIME, # 90 tabs, 3 Refill(s), eRx : [facility] [id number], TAKE 1 TABLET BY MOUTH AT BEDTIME Start Date: 02/17/16 Status: OrderedCalcium 600+D 2 tabs, Oral, Daily, 0 Refill(s) Start Date: 05/08/14 Status: OrderedCipro 500 mg oral tablet 500 mg 1 tabs, Oral, q24hr, # 30 tabs, 0 Refill(s), Pharmacy: [facility] [id number], 1 tabs Oral q24hr Start Date: 02/25/16 Status: OrderedFosamax 70 mg oral tablet 70 mg 1 tabs, Oral, qWeek, # 12 tabs, 4 Refill(s), Pharmacy: [facility] [id number], 1 tabs OralqWeek Start Date: 06/17/15 Status: Orderedmultivitamin 1 tabs, Oral, Daily, 0 Refill(s) Start Date: 08/07/14 Status: OrderedVitamin D3 2000 intl units oral tablet 1 tabs, Oral, Daily, 0 Refill(s) Start Date: 05/08/14 Status: Ordered Results No data available for this section Immunizations Given and Recorded Vaccine Date Status Refusal Reason tetanus/diphth/pertuss (Tdap) adult/adol 02/07/13 Recorded tetanus/diphth/pertuss (Tdap) adult/adol 04/08/07 Recorded influenza virus vaccine, inactivated 12/25/15 Recorded influenza virus vaccine, live 12/21/12 Given influenza virus vaccine, live 01/12/11 Given pneumococcal 13-valent conjugate vaccine 05/17/15 Given pneumococcal 23-polyvalent vaccine 10/17/08 Recorded pneumococcal 23-polyvalent vaccine 01/13/01 Recorded zoster vaccine live 10/04/11 Given Procedures Procedure Date Related Diagnosis Body Site L TKA [facility] BUHR1 08/20/14 Colonoscopy abnormal2 04/15/11 [facility] BSO - Total abdominal hysterectomy and 1996 bilateral salpingo-oophorectomy Bladder Sling3 L Lumpectomy4 Sacral Colpopexy 1715.36 OA GLOBAL ENDS 11/18/20142Last done in 2011 and Hyperplastic polyps removed. Has Hx of Tubular adenomas. Repeat in 5 years.3Urinary vtddyefybhoz6Xmkdbs Cancer Social History Social History Type Response Smoking Status Never smoker Assessment and Plan No data available for this section
--- OUTSIDE RECORDS SUMMARY | 2017-04-13 11:08 | External Medical Summary | Referral Summary ---
:1940 Author Organization [facility], [facility], Otolaryngology Address [address] [address] Care Team Providers Name Role Phone Yaya Lizarraga Primary Care Physician Encounter [facility] [id number] Date(s): 10/17/14 - 10/17/14 [facility], [facility] Otolaryngology [address] [address] [place] Discharge Diagnosis: Bilateral sensorineural hearing loss Discharge Disposition: 01-Home or Self Care Attending Physician: Renée Nettles Admitting Physician: Renée Nettles Vital Signs No data available for this [...] Active Trigeminal neuralgia(Confirmed) Active Vertigo(Confirmed) Active 1Bladder bppca0Q Lumpectomy Allergies, Adverse Reactions, Alerts Substance Reaction Severity Status amoxicillin diarrhea Active amoxicillin-clavulanate diarrhea Active meloxicam DIARRHEA Active Medications Aleve 220 mg, Oral, BID, 0 Refill(s) Start Date: 05/08/14 Status: Orderedatenolol 25 mg oral tablet See Instructions, 1 TABS ORAL BEDTIME (ONCE A DAY), # 90 tabs, 3 Refill(s), eRx : [id number], 1 TABS ORAL BEDTIME (ONCE A DAY) Start Date: 03/11/15 Status: OrderedCalcium 600+D 2 tabs, Oral, Daily, 0 Refill(s) Start Date: 05/08/14 Status: OrderedMacrobid 100 mg oral capsule 100 mg 1 caps, Oral, BID, X 7 days, # 14 caps, 0 Refill(s), Pharmacy: [id number], 1 caps Oral BID,x7 days Start Date: 04/22/15 Stop Date: 04/29/15 Status: Orderedmultivitamin 1 tabs, Oral, Daily, 0 [...] Lumpectomy4 Sacral Colpopexy 1715.36 OA GLOBAL ENDS 11/18/201495957Qzichhw fzpeeqdhpddg1Krry done in 2011 and Hyperplastic polyps removed. Has Hx of Tubular adenomas. Repeat in 5 years.4Breast Cancer Social History Social History Type Response Smoking Status Never smoker Assessment and Plan No data available for this section
--- OUTSIDE RECORDS SUMMARY | 2017-04-13 11:08 | External Medical Summary | Referral Summary ---
:1940 Author Organization [facility] Address [address] [place] [address] Care Team Providers Name Role Phone Yaya Lizarraga Primary Care Physician Encounter [facility] Date(s): 05/28/15 - 05/28/15 [facility] [address] [place] [address]- [place] Discharge Diagnosis: Bilateral impacted cerumen Discharge Diagnosis: Hypertension Discharge Disposition: 01-Home or Self Care Attending Physician: Yaya Lizarraga MD Admitting Physician: Yaya Lizarraga MD Vital Signs Most recent to oldest [Reference Range]: 1 Peripheral Pulse Rate [60-100 bpm] 72 bpm (05/28/15 3:23 PM) Blood Pressure [90-140/60-90 mmHg] 130/80 mmHg (05/28/15 3:23 PM) Problem List Condition Effective Dates Status [...] Active Trigeminal neuralgia(Confirmed) Active Vertigo(Confirmed) Active 1Bladder dtegm8H Lumpectomy Allergies, Adverse Reactions, Alerts Substance Reaction Severity Status amoxicillin diarrhea Active amoxicillin-clavulanate diarrhea Active meloxicam DIARRHEA Active Medications Aleve 220 mg, Oral, BID, 0 Refill(s) Start Date: 05/08/14 Status: Orderedatenolol 25 mg oral tablet See Instructions, 1 TABS ORAL BEDTIME (ONCE A DAY), # 90 tabs, 3 Refill(s), eRx : [id number], 1 TABS ORAL BEDTIME (ONCE A DAY) [...] Procedures Procedure Date Related Diagnosis Body Site Removal impacted cerumen requiring 05/28/15 instrumentation, unilateral. L TKA [facility] BUHR1 08/20/14 Colonoscopy abnormal2 04/15/11 [facility] BSO - Total abdominal hysterectomy and 1996 bilateral salpingo-oophorectomy Bladder Sling3 L Lumpectomy4 Sacral Colpopexy 1715.36 OA GLOBAL ENDS 11/18/20142Last done in 2011 and Hyperplastic polyps removed. Has Hx of Tubular adenomas. Repeat in 5 years.3Urinary wcjgjzdzcuwh3Jaocuc Cancer Social History Social History Type Response Smoking Status Never smoker Assessment and Plan Extracted from: Title: Office Visit Note Author: Yaya Lizarraga MD Date: 05/28/15 Assessment/Plan 1.Bilateral impacted cerumen Her cerumen impactions were removed. Cautioned her about not using Q-tips which she normally doesn't do. Ordered: Office Visit Level 2 Est 42209 Removal Impacted Cerumen (Separate Procedure), One Or Both Ears 31315 Hypertension Blood pressures controlled and she'll continue current meds for this. I'll reevaluate this at her regular scheduled follow-up appointment. Ordered: Office Visit Level 2 Est 00434
--- OUTSIDE RECORDS SUMMARY | 2017-04-13 11:08 | External Medical Summary | Referral Summary ---
:1940 Author Organization [facility] Address [address] [place] [address] Care Team Providers Name Role Phone Yaya Lizarraga Primary Care Physician Encounter [facility] [id number] Date(s): 06/17/15 - 06/17/15 [facility] [address] [place] [address]- Discharge Diagnosis: Osteoporosis Discharge Diagnosis: Hypertension Discharge Disposition: 01-Home or Self Care Attending Physician: Yaya Lizarraga MD Admitting Physician: Yaya Lizarraga MD Vital Signs Most recent to oldest [Reference Range]: 1 Peripheral Pulse Rate [60-100 bpm] 96 bpm (06/17/15 2:31 PM) Blood Pressure [90-140/60-90 mmHg] 124/72 mmHg (06/17/15 2:31 PM) Problem List Condition Effective Dates Status [...] Active Trigeminal neuralgia(Confirmed) Active Vertigo(Confirmed) Active 1Bladder qadok4L Lumpectomy Allergies, Adverse Reactions, Alerts Substance Reaction Severity Status amoxicillin diarrhea Active amoxicillin-clavulanate diarrhea Active meloxicam DIARRHEA Active Medications Aleve 220 mg, Oral, BID, 0 Refill(s) Start Date: 05/08/14 Status: Orderedatenolol 25 mg oral tablet See Instructions, 1 TABS ORAL BEDTIME (ONCE A DAY), # 90 tabs, 3 Refill(s), eRx : [facility] [id number], 1 TABS ORAL BEDTIME (ONCE A DAY) Start Date: 03/11/15 Status: OrderedCalcium 600+D 2 tabs, Oral, Daily, 0 Refill(s) Start Date: 05/08/14 Status: OrderedFosamax 70 mg oral tablet 70 mg 1 tabs, Oral, qWeek, # 12 tabs, 4 Refill(s), Pharmacy: [facility] [id number], 1 tabs OralqWeek Start Date: 06/17/15 Status: [...] of Tubular adenomas. Repeat in 5 years.3Urinary ntwvcpgeapmv2Szjtcz Cancer Social History Social History Type Response Smoking Status Never smoker Assessment and Plan Extracted from: Title: Office Visit Note Author: Yaya Lizarraga MD Date: 06/17/15 Assessment/Plan Hypertension Her blood pressure looks well controlled and I'll leave her meds the same. I'll reevaluate this in May of next year as already scheduled. Ordered: Office Visit Level 3 Est 96907 Return to Clinic Osteoporosis For osteoporosis will start Fosamax. Lengthy discussion regarding this was held today. I'llrevisit this issue and reevaluate in11 months when I see her back as planned. I'll c heck her vitamin D level today and let her know the results. Ordered: Office Visit Level 3 Est 23882 Return to Clinic Vitamin D 25 Hydroxy Level Orders: alendronate, 70 mg 1 tabs, Oral, qWeek, # 12 tabs, 4 Refill(s), Pharmacy: [id number], 1 tabs Oral qWeek Referrals to Other Providers Referred by: Yaya Lizarraga MD
--- OUTSIDE RECORDS SUMMARY | 2017-04-13 11:09 | External Medical Summary | Referral Summary ---
:1940 Author Organization [facility] Address [address] [place] [address] Care Team Providers Name Role Phone Yaya Lizarraga Primary Care Physician Encounter [facility] Date(s): 04/22/16 - 04/22/16 [facility] [address] [place] [address]- [place] Discharge Diagnosis: Hypertension Discharge Diagnosis: Chronic UTI Discharge Diagnosis: Mitral valve disease Discharge Disposition: 01-Home or Self Care Attending Physician: Yaya Lizarraga MD Vital Signs Most recent to oldest [Reference Range]: 1 Peripheral Pulse Rate [60-100 bpm] 84 bpm (04/22/16 1:46 PM) Blood Pressure [90-140/60-90 mmHg] 152/78 mmHg *HI* (04/22/16 1:46 PM) Problem List Condition Effective Dates Status [...] Active Trigeminal neuralgia(Confirmed) Active Vertigo(Confirmed) Active 1Bladder abnlk5N Lumpectomy Allergies, Adverse Reactions, Alerts Substance Reaction Severity Status amoxicillin diarrhea Active amoxicillin-clavulanate diarrhea Active meloxicam DIARRHEA Active Medications Aleve 220 mg, Oral, BID, 0 Refill(s) Start Date: 05/08/14 Status: Orderedatenolol 25 mg oral tablet See Instructions, TAKE 1 TABLET BY MOUTH AT BEDTIME, # 90 tabs, 3 Refill(s), eRx : [id number], TAKE 1 TABLET BY MOUTH AT BEDTIME Start Date: 02/17/16 Status: OrderedCipro 500 mg oral tablet 500 mg 1 tabs, Oral, q24hr, takes prn for uti, # 30 tabs, 0 Refill(s), Pharmacy : [facility] [id number] Start Date: 03/31/16 Status: OrderedEstrace Vaginal 0.1 mg/g vaginal cream 1 g, Vaginal, 3x/Wk, # 42.5 g, 0 Refill(s), Pharmacy: [facility] [id number] Start Date: 03/18/16 Status: OrderedFosamax 70 mg oral tablet 70 mg 1 tabs, Oral, qWeek, # 12 tabs, 4 Refill(s), Pharmacy: [facility] [id number], 1 tabs OralqWeek Start Date: 06/17/15 Status: [...] of Tubular adenomas. Repeat in 5 years.3Urinary ratulmvzhwwd5Atbqlx Cancer Social History Social History Type Response Smoking Status Never smoker Assessment and Plan Extracted from: Title: Office Visit Note Author: Yaya Lizarraga MD Date: 04/22/16 Assessment/Plan 1.Hypertension Her blood pressure is fine. She'll continue the atenolol. I'll reevaluate this in 6 months. I'll plan to update some lab at that time. Ordered: Internal Referral to Gastroenterology Office Visit Level 3 Est 53040 Return to Clinic 2.Chronic UTI She'll continue hertwice a day self catheterizations. Hopefully this willprevent her fromrecurrent UTIs. Ordered: Internal Referral to Gastroenterology Office Visit Level 3 Est 15522 Return to Clinic 3.Mitral valve disease She has mitralvalve disease but this is stable and asymptomatic. She' ll follow-up with her superintendent police after1 year has a lapsed. Otherwise no treatment. She is due for follow-up colonos copy which I discussed with her today. She is in agreement with getting this up-to-date. We'll contact the [facility] for this. I'll see her back in 6 months for an annual history Referrals to Other Providers Referred by: Yaya Lizarraga MD colonoscopy, referred to: Nara Kruger MD Referred by: Yaya Lizarraga MD
--- OUTSIDE RECORDS SUMMARY | 2017-04-13 11:09 | External Medical Summary | Referral Summary ---
:1940 Author Organization [facility], [facility] Address [address] [place] [address] Care Team Providers Name Role Phone Yaya Lizarraga Primary Care Physician Encounter [facility] Date(s): 08/07/14 - 08/07/14 [facility] [address] [address] [place] [address] [place] Discharge Diagnosis: Osteoarthritis of [...] Active Urinary incontinence(Confirmed)2 Active Vertigo(Confirmed) Active 1L Hjjxhxvteg4Mjsxuzj sling Allergies, Adverse Reactions, Alerts Substance Reaction Severity Status amoxicillin diarrhea Active amoxicillin-clavulanate diarrhea Active meloxicam DIARRHEA Active Medications Aleve 220 mg, Oral, BID, 0 Refill(s) Start Date: 05/08/14 Status: Orderedatenolol 25 mg oral tablet 1 tabs, Oral, Bedtime (once a day), # 90 tabs, 3 Refill(s), Pharmacy: [facility], 1 tabs Oral Bedtime (once a day) [...] Lumpectomy4 Sacral Colpopexy 1715.36 OA GLOBAL ENDS 11/18/201458860Thydgkx ydzoekeqhgir7Agey done in 2011 and Hyperplastic polyps removed. [...] 08/07/14 12:00:00 CDT, [facility] [id number], Form: Injection triamcinolone, 2 mL, IntraARTICULAR, Once, First Dose: 08/07/14 12:00:00 CDT, Stop Date: 08/07/14 12:00:00 CDT, [facility] [id number], Form: Injection Arthro/Asp Major Joint Inj (Shoulder, Hip, Knee) 02978 Office Visit Level 2 Est 15042
--- OUTSIDE RECORDS SUMMARY | 2017-04-13 11:09 | External Medical Summary | Referral Summary ---
:1940 Author Organization [facility] Address [address] [place] [address] Care Team Providers Name Role Phone Yaya Lizarraga Primary Care Physician Encounter VC [facility] [id number] Date(s): 01/22/16 - 01/22/16 [facility] [address] [place] [address] [place] Discharge Diagnosis: Chronic UTI Discharge Diagnosis: Chronic UTI Discharge Disposition: 01-Home or Self Care Attending Physician: Deandre Cochran MD Admitting Physician: Deandre Cochran MD Vital Signs Most recent to oldest [Reference Range]: 1 Blood Pressure [90-140/60-90 mmHg] 120/70 mmHg (01/22/16 1:08 PM) Problem List Condition Effective Dates Status [...] Active Trigeminal neuralgia(Confirmed) Active Vertigo(Confirmed) Active 1Bladder gcwdu1J Lumpectomy Allergies, Adverse Reactions, Alerts Substance Reaction Severity Status amoxicillin diarrhea Active amoxicillin-clavulanate diarrhea Active meloxicam DIARRHEA Active Medications Aleve 220 mg, Oral, BID, 0 Refill(s) Start Date: 05/08/14 Status: Orderedatenolol 25 mg oral tablet See Instructions, 1 TABS ORAL BEDTIME (ONCE A DAY), # 90 tabs, 3 Refill(s), eRx : [facility] [id number], 1 TABS ORAL BEDTIME (ONCE A DAY) Start Date: 03/11/15 Status: OrderedCalcium 600+D 2 tabs, Oral, Daily, 0 Refill(s) Start Date: 05/08/14 Status: OrderedFosamax 70 mg oral tablet 70 mg 1 tabs, Oral, qWeek, # 12 tabs, 4 Refill(s), Pharmacy: [facility] [id number], 1 tabs OralqWeek Start Date: 06/17/15 Status: Orderedlosartan 25 mg oral tablet 25 mg 1 tabs, Oral, Daily, # 30 tabs, 2 Refill(s), Pharmacy: [facility] [id number], 1 tabs OralDaily Start Date: 01/10/16 Status: Orderedlosartan 50 mg oral tablet 50 mg 1 tabs, Oral, Daily, # 90 tabs, 4 Refill(s), Pharmacy: [facility] 07376, 1 tabs OralDaily Start Date: 01/16/16 Status: [...] Procedures Procedure Date Related Diagnosis Body Site Insertion of temporary indwelling bladder 01/22/16 catheter; simple (eg, [facility]).. Measurement of post-voiding residual urine and/or 01/22/16 bladder capacity by ultrasound, non-imaging L TKA C BUHR1 08/20/14 Colonoscopy abnormal2 04/15/11 [facility] BSO - Total abdominal hysterectomy and 1996 bilateral salpingo-oophorectomy Bladder Sling3 L Lumpectomy4 Sacral Colpopexy 1715.36 OA GLOBAL ENDS 11/18/20142Last done in 2011 and Hyperplastic polyps removed. Has Hx of Tubular adenomas. Repeat in 5 years.3Urinary suuxlqzahknn8Edhjvt Cancer Social History Social History Type Response Smoking Status Never smoker Assessment and Plan Extracted from: Title: Office Visit Note Author: Deandre Cochran MD Date: 01/22/16 Assessment/Plan 1.Chronic UTI Ordered: Creatinine Lvl CT Renal/Urography
--- OUTSIDE RECORDS SUMMARY | 2017-04-13 11:09 | External Medical Summary | Referral Summary ---
:1940 Author Organization [facility] Address [address] [place] [address] Care Team Providers Name Role Phone Yaya Lizarraga Primary Care Physician Encounter [facility] Date(s): 08/07/14 - 08/07/14 [facility] [address] [address] [place] [address]- [place] Discharge Diagnosis: Osteoarthritis of [...] Active Urinary incontinence(Confirmed)2 Active Vertigo(Confirmed) Active 1L Pnufdwefqd2Nuahqve sling Allergies, Adverse Reactions, Alerts Substance Reaction Severity Status amoxicillin diarrhea Active amoxicillin-clavulanate diarrhea Active meloxicam DIARRHEA Active Medications Aleve 220 mg, Oral, BID, 0 Refill(s) Start Date: 05/08/14 Status: Orderedatenolol 25 mg oral tablet 1 tabs, Oral, Bedtime (once a day), # 90 tabs, 3 Refill(s), Pharmacy: [facility] [address], 1 tabs Oral Bedtime (once a day) [...] Lumpectomy4 Sacral Colpopexy 1715.36 OA GLOBAL ENDS 11/18/201447252Qqpesbv aimlwlzbglza8Jajf done in 2011 and Hyperplastic polyps removed. [...] 12:00:00 CDT, Stop Date: 08/07/14 12:00:00 CDT, [facility] [id number], Form: Injection triamcinolone, 2 mL, IntraARTICULAR, Once, First Dose: 08/07/14 12:00:00 CDT, Stop Date: 08/07/14 12:00:00 CDT, [facility] [id number], Form: Injection Arthro/Asp Major Joint Inj (Shoulder, Hip, Knee) 15524 Office Visit Level 2 Est 08319
--- OUTSIDE RECORDS SUMMARY | 2017-04-13 11:09 | External Medical Summary | Continuity of Care Document ---
:1940 Author Organization [facility] Allergies Active Description Code Type Severity Reaction Onset Reported/ Identified Relationship Clinical to Patient Status Yes acetaminophe aceta Drug Moderate NIGHTMARE 08/20/2014 n minop Aller S hen gy Yes oxycodone oxyco Drug Moderate [place] 08/20/2014 done Aller S gy Yes Penicillins Penic Drug Unknown HIVES 12/29/2015 illin Aller s gy Medications There is no data. 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 Procedures Code Description Performed By Performed On 81.54 TOTAL KNEE Christopher Bartlett MD 08/20/2014 REPLACEMENT <section xmlns="urn:hl7-org:v3" xmlns:xsi="http://www.w3.org/ 2001/XMLSchema-instance"> <templateId root=" [id number]" /> <templateId root=" [id number]" /> <code codeSystemName=" LOINC" codeSystem="[id number]" code="38187-2&quot ; displayName="Results" /> <title>Results</title> &lt ;text> <table> <thead> <tr> <th& gt;Test</th> <th>Result</th> <th>Range </th> </tr> </thead> <tbody> &lt ;tr> <th colspan="10">MRSA SURVEILLANCE SCREEN - 03/29 09:26</th> </tr> <tr> <td> Microbiology</td> <td> </td> <td /> < /tr> <tr> <th colspan="10">URINALYSIS, ROUTINE - 08/13/14 09:31</th> </tr> <tr> <td>UA LEUKOCYTE ESTERASE DIPSTICK</td> <td>2+ &lt ;/td> <td>NEGATIVE</td> </tr> <tr > <td>UA NITRITE DIPSTICK</td> <td>POSITIVE &lt ;/td> <td>NEGATIVE</td> </tr> <tr > <td>UA PROTEIN DIPSTICK</td> <td>TRACE </td> <td>NEGATIVE</td> </tr> <tr& gt; <td>UA GLUCOSE DIPSTICK</td> <td> NEGATIVE </td> <td>NEGATIVE</td> </tr> <tr> <td>UA KETONE DIPSTICK</td> <td >NEGATIVE </td> <td>NEGATIVE</td> </tr& gt; <tr> <td>UA UROBILINOGEN DIPSTICK</td> <td>NORMAL </td><td>NORMAL</td> </tr> <tr> <td>UA BILIRUBIN DIPSTICK</td> <td>NEGATIVE </td> <td>NEGATIVE</td> </tr&gt ; <tr> <td>UA BLOOD DIPSTICK</td> &lt ;td>2+</td> <td>NEGATIVE</td> </tr> <tr> <td>UA SPECIFIC GRAVITY</td> &lt ;td>1.009 </td> <td>1.015-1.025</td> </ tr> <tr> <td>UR PH</td> <td> 7.0 </td> <td>5.0-7.0</td> </tr> <tr> <th colspan="10">UA MICROSCOPIC - 08/13/14 09:31& lt;/th> </tr> <tr> <td>UA BACTERIA< /td> <td>5+ </td> <td>NEGATIVE</td> & lt;/tr> <tr> <td>UA RBC</td> < td>10-20 rbc/hpf</td> <td>0 - 3</td> </ tr> <tr> <td>UA VOLUME FOR EXAM</td> <td>12.0 mL</td> <td>(12mL STD)</td> </tr> <tr> <td>UA WBC</td> & lt;td>PACKED FIELD wbc/hpf</td> <td>0 - 5</td> </tr> <tr> <th colspan="10"> CBC W/DIFF - 08/13/14 09:31</th> </tr> <tr> <td>EOSINOPHIL #</td> <td>0.2 k/cumm</td&gt ; <td>0.1-0.5</td> </tr> <tr> <td>EOSINOPHIL %</td> <td>2 %&lt ;/td> <td>2-4</td> </tr> <tr> <td>GRANULOCYTE #</td> <td>6.6 k/cumm</ td> <td>2.0-9.0</td> </tr> <tr&gt ; <td>GRANULOCYTE %</td> <td>56 &amp ;#37;</td> <td>50-75</td> </tr> & lt;tr> <td>LYMPHOCYTE #</td> <td>3.8 k/ cumm</td> <td>1.0-4.0</td> </tr> <tr> <td>LYMPHOCYTE %</td> <td&gt ;32 %</td> <td>20-30</td> </tr> <tr> <td>MEAN CELL HGB</td> <td& gt;32.0 pg</td> <td>27.0-33.0</td> </tr&gt ; <tr> <td>MEAN CELL HGB CONCENTRATION</td> <td>34.8 g/dL</td> <td>32.0-37.0</td> </tr> <tr> <td>MEAN CELL VOLUME</td& gt; <td>91.7 fl</td> <td>80.0-100.0</td& gt; </tr> <tr> <td>MONOCYTE #</td&gt ; <td>1.0 k/cumm</td> <td>0.1-1.0</td> </tr> <tr> <td>MONOCYTE %</ td> <td>8 %</td> <td>4-6</td& gt; </tr> <tr> <td>RED BLOOD CELL</td& gt; <td>4.82 m/cumm</td> <td>4.00-6.00</ td> </tr> <tr> <td>RED CELL DISTRIBUTION WIDTH</td> <td>12.4 %</td> <td>11.0-15.6</td> </tr> <tr> <td>WHITEBLOOD CELL</td> <td>11.8 k/cumm</td> <td>5.0-10.0</td> </tr> <tr> <td>HEMOGLOBIN</td> <td>15.4 gm/dL</td> <td>12.0-16.0</td> </tr> <tr> <td>HEMATOCRIT</td> <td>44.2 %</td> <td>37.0-47.0</td> </tr> <tr> <td>PLATELET COUNT</td> <td>266 k/cumm</td& gt; <td>150-400</td> </tr> <tr> <th colspan="10">PROTHROMBIN TIME WITH INR - 08/13/14 09: 31</th> </tr> <tr> <td> INTERNATIONAL NORMAL RATIO</td> <td>1.0 </td> <td>0.9-1.1</td> </tr> <tr> <td& gt;PROTHROMBIN TIME</td> <td>10.7 sec</td> &lt ;td>9.3-12.2</td> </tr> <tr> <th colspan="10">PARTIAL THROMBOPLASTIN TIME - 08/13/14 09:31</th&gt ; </tr> <tr> <td>PARTIAL THROMBOPLASTIN TIME</td> <td>30 sec</td> &lt ;td>24-36</td> </tr> <tr> <th colspan="10">METABOLIC PANEL, BASIC - 08/13/14 09:31</th> </tr> <tr> <td>POTASSIUM</td> <td>3.6 mmol/L</td> <td>3.5-5.3</td> </tr> <tr> <td>EST GFR (MDRD)</td> <td>> 60 mL/min</td> <td>> 59& lt;/td> </tr> <tr> <td>ANION GAP< /td> <td>7 mmol/L</td> <td>5-15</td&gt ; </tr> <tr> <td>EST CrCl (CG)</td& gt; <td>> 60 mL/min</td> <td>&gt ; 59</td> </tr> <tr> <td>GLUCOSE& lt;/td> <td>87 mg/dL</td> <td>70-99</ td> </tr> <tr> <td>CALCIUM</td> <td>9.3 mg/dL</td> <td>8.5-10.1</td> </tr> <tr> <td>BLOOD UREA NITROGEN</ td> <td>15 mg/dL</td> <td>7-20</td> </tr> <tr> <td>CREATININE</td> <td>0.7 mg/dL</td> <td>0.6-1.0</td> </tr> <tr> <td>SODIUM</td> <td>137 mmol/L</td> <td>135-148</td> &lt ;/tr> <tr> <td>CHLORIDE</td> <td&gt ;101 mmol/L</td> <td>98-110</td> </tr> & lt;tr> <td>CARBON DIOXIDE</td> <td>29 mmol/L</td> <td>21-32</td> </tr> <tr> <th colspan="10">URINE CULTURE - 08/13/14 09 :31</th> </tr> <tr> <td> Microbiology</td> <td> </td> <td /> </tr> <tr> <th colspan="10"> SED RATE - 08/20/14 10:55</th> </tr> <tr><td& gt;SED RATE</td> <td>29 mm/hr</td> <td&gt ;0-15</td> </tr> <tr> <th colspan=& quot;10">CBC - 08/21/14 05:08</th> </tr> < tr> <td>MEAN CELL HGB</td> <td>31.4 pg</td&gt ; <td>27.0-33.0</td> </tr> <tr> <td>MEAN CELL HGB CONCENTRATION</td> <td> 33.1 g/dL</td> <td>32.0-37.0</td> </tr> <tr> <td>MEAN CELL VOLUME</td> < td>94.9 fl</td> <td>80.0-100.0</td> </tr > <tr> <td>RED BLOOD CELL</td> &lt ;td>3.69 m/cumm</td> <td>4.00-6.00</td> &lt ;/tr> <tr> <td>RED CELL DISTRIBUTION WIDTH</td > <td>12.9 %</td> <td>11.0-15.6& lt;/td> </tr> <tr> <td>WHITE BLOOD CELL</td> <td>10.8 k/cumm</td> <td>5.0 -10.0</td> </tr> <tr> <td> HEMOGLOBIN</td> <td>11.6 gm/dL</td> <td& gt;12.0-16.0</td> </tr> <tr> <td> HEMATOCRIT</td> <td>35.0 %</td> < td>37.0-47.0</td> </tr> <tr> <td& gt;PLATELET COUNT</td> <td>181 k/cumm</td> & lt;td>150-400</td> </tr> <tr> < th colspan="10">METABOLIC PANEL, [facility] - 08/21/14 05:08</th& gt; </tr> <tr> <td>POTASSIUM</td&gt ; <td>3.4 mmol/L</td> <td>3.5-5.3</td> </tr> <tr> <td>EST GFR (MDRD)</td> <td>> 60 mL/min</td> <td>> 59& lt;/td> </tr> <tr> <td>ANION GAP< /td> <td>7 mmol/L</td> <td>5-15</td&gt ; </tr> <tr> <td>EST CrCl (CG)</td> <td>> 60 mL/min</td> <td>> 59< /td> </tr> <tr> <td>GLUCOSE</td& gt; <td>117 mg/dL</td> <td>70-99</td> </tr> <tr> <td>CALCIUM</td> <td>8.2 mg/dL</td> <td>8.5-10.1</td> </tr> <tr> <td>BLOOD UREA NITROGEN</td& gt; <td>13 mg/dL</td><td>7-20</td> </ tr> <tr> <td>CREATININE</td> < td>0.6 mg/dL</td> <td>0.6-1.0</td> </tr& gt; <tr> <td>SODIUM</td> <td>140 mmol/L</td> <td>135-148</td> </tr> < tr> <td>CHLORIDE</td> <td>105 mmol/L</ td> <td>98-110</td> </tr> <tr&gt ; <td>AST/SGOT</td> <td>14 Units/L</td&gt ; <td>10-37</td> </tr> <tr> <td>ALT/SGPT</td> <td>18 Units/L</td> <td>< 66</td></tr> <tr> < td>CARBON DIOXIDE</td> <td>28 mmol/L</td> <td>21-32</td> </tr> <tr> < td>TOTAL PROTEIN</td> <td>5.7 gm/dL</td> <td>6.4-8.2</td> </tr> <tr> < td>ALBUMIN</td> <td>2.8 gm/dL</td> <td >3.4-5.0</td> </tr> <tr> <td>BILI TOTAL</td> <td>0.4 mg/dL</td> <td>0.0- 1.0</td> </tr> <tr> <td>ALKALINE PHOSPHATASE TOTAL</td> <td>60 IU/L</td> < td>45-117</td> </tr> <tr> <th colspan="10">URINALYSIS, ROUTINE - 08/21/14 22:00</th> </tr> <tr> <td>UA LEUKOCYTE ESTERASE DIPSTICK</td> <td>TRACE </td> <td> NEGATIVE</td> </tr> <tr> <td>UA NITRITE DIPSTICK</td> <td>NEGATIVE </td> &lt ;td>NEGATIVE</td> </tr> <tr> <td& gt;UA PROTEIN DIPSTICK</td> <td>NEGATIVE </td> <td>NEGATIVE</td> </tr> <tr> <td>UA GLUCOSE DIPSTICK</td> <td>NEGATIVE </td> <td>NEGATIVE</td> </tr> <tr> & lt;td>UA KETONE DIPSTICK</td> <td>NEGATIVE </td> <td>NEGATIVE</td> </tr> <tr> <td>UA UROBILINOGEN DIPSTICK</td> <td>NORMAL </td& gt; <td>NORMAL</td> </tr> <tr> <td>UA BILIRUBIN DIPSTICK</td> <td>NEGATIVE & lt;/td> <td>NEGATIVE</td> </tr> < tr> <td>UA BLOOD DIPSTICK</td> <td>1+ &lt ;/td> <td>NEGATIVE</td> </tr> <tr > <td>UA SPECIFIC GRAVITY</td> <td>1.005 </td> <td>1.015-1.025</td> </tr> <tr> <td>UR PH</td> <td>6.5 </td&gt ; <td>5.0-7.0</td> </tr> <tr> & lt;th colspan="10">UA MICROSCOPIC - 08/21/14 22:00</th> </tr> <tr> <td>UA EPITHELIAL CELLS</td& gt; <td>2+ epi/hpf</td> <td>0- 1+</td&gt ; </tr> <tr> <td>UA RBC</td> <td>0-3 rbc/hpf</td> <td>0 - 3</td> </tr> <tr> <td>UA VOLUME FOR EXAM</td&gt ; <td>12.0 mL</td> <td>(12mL STD)</td&gt ; </tr> <tr> <td>UA WBC</td> <td>5-10 wbc/hpf</td> <td>0 - 5</td> </tr> <tr> <th colspan="10">CBC - 08/22/14 06:52</th> </tr> <tr> <td >MEAN CELL HGB</td> <td>30.9 pg</td> < td>27.0-33.0</td> </tr> <tr> <td& gt;MEAN CELL HGB CONCENTRATION</td> <td>32.8 g/dL</td&gt ; <td>32.0-37.0</td> </tr> <tr> <td>MEAN CELL VOLUME</td> <td>94.2 fl</td > <td>80.0-100.0</td> </tr> <tr& gt; <td>RED BLOOD CELL</td> <td>3.82 m/cumm& lt;/td> <td>4.00-6.00</td> </tr> &lt ;tr> <td>RED CELL DISTRIBUTION WIDTH</td> < td>13.0 %</td> <td>11.0-15.6</td> & lt;/tr> <tr> <td>WHITE BLOOD CELL</td> <td>9.6 k/cumm</td> <td>5.0-10.0</td> </tr> <tr> <td>HEMOGLOBIN</td> <td>11.8 gm/dL</td> <td>12.0-16.0</td> </tr> <tr> <td>HEMATOCRIT</td> <td>36.0 %</td> <td>37.0-47.0</td& gt; </tr> <tr> <td>PLATELET COUNT</ td> <td>170 k/cumm</td> <td>150-400</ td> </tr> <tr> <th colspan="10& quot;>METABOLIC PANEL, BASIC - 06/10/15 06:52</th></tr> & lt;tr> <td>POTASSIUM</td> <td>3.6 mmol/L& lt;/td> <td>3.5-5.3</td> </tr> < tr> <td>EST GFR (MDRD)</td> <td>> 60 mL/min</td> <td>> 59</td> </tr&gt ; <tr> <td>ANION GAP</td> <td>7 mmol/ L</td> <td>5-15</td> </tr> <tr > <td>EST CrCl (CG)</td> <td>> 60 mL/min</td> <td>> 59</td> </tr> <tr> <td>GLUCOSE</td> <td>107 mg/dL </td> <td>70-99</td> </tr> <tr > <td>CALCIUM</td> <td>8.3 mg/dL</td& gt; <td>8.5-10.1</td> </tr> <tr> <td>BLOOD UREA NITROGEN</td> <td>7 mg/dL&lt ;/td> <td>7-20</td> </tr> <tr> <td>CREATININE</td> <td>0.7 mg/dL</td&gt ; <td>0.6-1.0</td> </tr> <tr> <td>SODIUM</td> <td>139 mmol/L</td> <td>135-148</td> </tr> <tr> <td>CHLORIDE</td> <td>102 mmol/L</td> <td>98-110</td> </tr> <tr> <td> CARBON DIOXIDE</td> <td>30 mmol/L</td> < td>21-32</td> </tr> <tr> <th colspan="10">URINE CULTURE - 08/22/14 09:45</th> </ tr> <tr> <td>Microbiology</td> &lt ;td> </td> <td /> </tr> <tr> <th colspan="10">URINALYSIS, ROUTINE - 08/22/14 09:50& lt;/th> </tr> <tr> <td>UA LEUKOCYTE ESTERASE DIPSTICK</td> <td>TRACE </td> < td>NEGATIVE</td> </tr> <tr> <td& gt;UA NITRITE DIPSTICK</td> <td>NEGATIVE </td> <td>NEGATIVE</td> </tr> <tr> <td>UA PROTEIN DIPSTICK</td> <td>NEGATIVE </td&gt ; <td>NEGATIVE</td></tr> <tr> & lt;td>UA GLUCOSE DIPSTICK</td> <td>1+ </td> <td>NEGATIVE</td> </tr> <tr> <td>UA KETONE DIPSTICK</td> <td>NEGATIVE </td> <td>NEGATIVE</td> </tr> <tr> <td>UA UROBILINOGEN DIPSTICK</td> <td>NORMAL & lt;/td> <td>NORMAL</td> </tr> <tr& gt; <td>UA BILIRUBIN DIPSTICK</td> <td> NEGATIVE </td> <td>NEGATIVE</td> </tr> <tr> <td>UA BLOOD DIPSTICK</td> < td>2+ </td> <td>NEGATIVE</td> </tr> <tr> <td>UA SPECIFIC GRAVITY</td> &lt ;td>1.008 </td> <td>1.015-1.025</td> </ tr> <tr> <td>UR PH</td> <td> 6.5 </td> <td>5.0-7.0</td> </tr> <tr> <th colspan="10">UA MICROSCOPIC - 08/22/14 09:50</th> </tr> <tr> <td>UA BACTERIA</td> <td>2+ </td> <td> NEGATIVE</td> </tr> <tr> <td>UA EPITHELIAL CELLS</td> <td>2+ epi/hpf</td> & lt;td>0 - 1+</td> </tr> <tr> <td& gt;UA RBC</td> <td>5-10 rbc/hpf</td> <td& gt;0 - 3</td> </tr> <tr> <td>UA VOLUME FOR EXAM</td> <td>12.0 mL</td> <td >(12mL STD)</td> </tr> <tr> <td> UA WBC</td> <td>10-20 wbc/hpf</td> <td&gt ;0 - 5</td> </tr> <tr> <th colspan=& quot;10">CBC - 08/23/14 04:46</th> </tr> < tr> <td>MEAN CELL HGB</td> <td>30.8 pg&lt ;/td> <td>27.0-33.0</td> </tr> <tr > <td>MEAN CELL HGB CONCENTRATION</td> <td& gt;32.8 g/dL</td> <td>32.0-37.0</td> </tr& gt; <tr><td>MEAN CELL VOLUME</td> <td> 93.9 fl</td> <td>80.0-100.0</td> </tr> <tr> <td>RED BLOOD CELL</td> <td> 3.80 m/cumm</td> <td>4.00-6.00</td> </tr&gt ; <tr> <td>RED CELL DISTRIBUTION WIDTH</td> <td>12.8 %</td> <td>11.0-15.6</td> </tr> <tr> <td>WHITE BLOOD CELL</td> <td>8.6 k/cumm</td> <td>5.0-10.0</td> </tr> <tr> <td>HEMOGLOBIN</td> <td>11.7 gm/dL</td> <td>12.0-16.0</td> </tr> <tr> <td>HEMATOCRIT</td> < td>35.7 %</td> <td>37.0-47.0</td> < /tr> <tr> <td>PLATELET COUNT</td> <td>175 k/cumm</td> <td>150-400</td> </tr > <tr> <th colspan="10">METABOLIC PANEL , [facility] - 12/29/15 03:55</th> </tr> <tr> <td>POTASSIUM</td> <td>4.0 mmol/L</td> <td>3.5-5.3</td> </tr> <tr> <td>EST GFR (MDRD)</td> <td>> 60 mL/min&lt ;/td> <td>> 59</td> </tr> &lt ;tr><td>ANION GAP</td> <td>9 mmol/L</td> <td>5-15</td> </tr> <tr> & lt;td>EST CrCl (CG)</td> <td>> 60 mL/min</td& gt; <td>> 59</td> </tr><tr> <td>GLUCOSE</td> <td>114 mg/dL</td> <td>70-99</td> </tr> <tr> &lt ;td>CALCIUM</td> <td>8.5 mg/dL</td> <td& gt;8.5-10.1</td> </tr> <tr> <td>BLOOD UREA NITROGEN</td> <td>17 mg/dL</td> <td& gt;7-20</td> </tr> <tr> <td> CREATININE</td> <td>0.6 mg/dL</td> <td&gt ;0.6-1.0</td> </tr> <tr> <td> SODIUM</td> <td>130 mmol/L</td> <td> 135-148</td> </tr> <tr> <td> CHLORIDE</td> <td>96 mmol/L</td> <td> 98-110</td></tr> <tr> <td>AST/SGOT</ td> <td>19 Units/L</td> <td>10-37</td& gt; </tr> <tr> <td>ALT/SGPT</td> <td>19 Units/L</td> <td>< 66</td& gt; </tr> <tr> <td>CARBON DIOXIDE</ td> <td>25 mmol/L</td> <td>21-32</td& gt; </tr> <tr> <td>TOTAL PROTEIN</td> <td>7.0 gm/dL</td> <td>6.4-8.2</td> </tr> <tr> <td>ALBUMIN</td> <td>3.4 gm/dL</td> <td>3.4-5.0</td> </tr> <tr> <td>BILI TOTAL</td> <td>0.5 mg/dL</td> <td>0.0-1.0</td> < /tr> <tr> <td>ALKALINE PHOSPHATASE TOTAL</td& gt; <td>69 IU/L</td> <td>45-117</td> </tr> <tr> <th colspan="10"> CBC W/DIFF - 12/29/15 03:55</th> </tr> <tr> <td>GRANULOCYTE #</td> <td>9.5 k/cumm</td&gt ; <td>2.0-9.0</td> </tr> <tr> <td>GRANULOCYTE %</td> <td>84 &#37 ;</td> <td>50-75</td> </tr> <tr> <td>LYMPHOCYTE #</td> <td>1.0 k/cumm</td > <td>1.0-4.0</td> </tr> <tr> <td>LYMPHOCYTE %</td> <td>9 &# 37;</td> <td>20-30</td> </tr> &lt ;tr> <td>MEAN CELL HGB</td> <td>30.5 pg& lt;/td> <td>27.0-33.0</td> </tr> &lt ;tr> <td>MEAN CELL HGB CONCENTRATION</td> < td>34.2 g/dL</td> <td>32.0-37.0</td> </ tr> <tr> <td>MEAN CELL VOLUME</td> <td>89.0 fl</td> <td>80.0-100.0</td> & lt;/tr> <tr> <td>MONOCYTE #</td> & lt;td>0.7 k/cumm</td> <td>0.1-1.0</td> </ tr> <tr> <td>MONOCYTE %</td> <td>6 %</td> <td>4-6</td> & lt;/tr> <tr> <td>RED BLOOD CELL</td> & lt;td>4.20 m/cumm</td> <td>4.00-6.00</td> & lt;/tr> <tr> <td>RED CELL DISTRIBUTIONWIDTH</ td> <td>12.2 %</td> <td>11.0-15.6 </td> </tr> <tr> <td>WHITE BLOOD CELL</td> <td>11.2 k/cumm</td> <td>5.0 -10.0</td> </tr> <tr> <td> HEMOGLOBIN</td> <td>12.8 gm/dL</td> <td& gt;12.0-16.0</td> </tr> <tr> <td> HEMATOCRIT</td> <td>37.4 %</td> <td >37.0-47.0</td> </tr> <tr> <td&gt ;PLATELET COUNT</td> <td>206 k/cumm</td> &lt ;td>150-400</td> </tr> </tbody> </table& gt;</text> <entry> <organizer moodCode="EVN" classCode="BATTERY"> <templateId root=" [id number]" /> <id nullFlavor="NA&quot ; /> <code codeSystem="local" code="MRSAS" displayName="[facility] SURVEILLANCE SCREEN" /> <statusCode code= "completed" /> <component> <observation moodCode="EVN" classCode="OBS"> <templateId root=& quot;2.16.840.1.845533.10.20.22.4.2" /> <id nullFlavor=&quot ;NA" /> <code codeSystem="local" code="MB& quot; displayName="Microbiology" /> <statusCode code=& quot;completed" /> <effectiveTime value="[id number]& quot; /> <value xsi:type="ST" value="<pre>& lt;b>MRSA SURVEILLANCE SCREEN</b> See Below: PRE OP TESTINGMRSA SURVEILLANCE SCREEN(F) Jeffry Date/Time: 08/13/2014 09:26 Jose Manuel Date/Time: 08/14/201407:24SOURCE: ANTERIOR NARESSPEC DESC: NNO [facility]ETHICILLIN [facility]IST[facility] [place] [address]</pre>" /> <referenceRange&gt ; <observationRange> <text /> </ observationRange> </referenceRange> </observation> </component> </organizer> </entry> <entry> &lt ;organizer moodCode="EVN" classCode="BATTERY"> < templateId root="2.16.840.1.725519.10.20.22.4.1" /> <id nullFlavor="NA" /> <code codeSystem="local" code= "UA" displayName="URINALYSIS, ROUTINE" /> < statusCode code="completed" /> <component> < observation moodCode="EVN" classCode="OBS"> < templateId root="2.16.840.1.050149.10.20.22.4.2" /> < id nullFlavor="NA" /> <code codeSystem="local&quot ; code="LEUESU" displayName="UA LEUKOCYTE ESTERASE DIPSTICK&quot ; /> <statusCode code="completed" /> < effectiveTime value="757415601114" /> <value unit=&quot ;"xsi:type="PQ" value="2+" /> < interpretationCode codeSystem="local" code="*" /> <referenceRange> <observationRange> < text>NEGATIVE</text> </observationRange> < /referenceRange> </observation> </component> &lt ;component><observation moodCode="EVN" classCode="OBS" > <templateId root="2.16.840.1.104535.10.20.22.4.2" /& gt; <id nullFlavor="NA" /> <code codeSystem=&quot ;local" code="NITRIU" displayName="UA NITRITE DIPSTICK&quot ; /> <statusCode code="completed" /> < effectiveTime value="053959688918" /> <value unit=&quot ;" xsi:type="PQ" value="POSITIVE" /> < interpretationCode codeSystem="local" code="*" /> <referenceRange> <observationRange> < text>NEGATIVE</text> </observationRange> < /referenceRange> </observation> </component> < component> <observation moodCode="EVN" classCode=" OBS"> <templateId root="2.16.840.1.204948.10.20.22.4.2& quot; /> <id nullFlavor="NA" /> <code codeSystem="local" code="PROTEIU" displayName="UA PROTEIN DIPSTICK" /> <statusCode code="completed" /> <effectiveTime value="186570269318" /> < value unit="" xsi:type="PQ" value="TRACE" /> <interpretationCode codeSystem="local" code="*" / > <referenceRange> <observationRange> <text>NEGATIVE</text> </observationRange> </referenceRange> </observation> </component&gt ; <component> <observation moodCode="EVN" classCode="OBS"> <templateId root=" 2.16.840.1.749889.10.20.22.4.2" /> <id nullFlavor="NA& quot; /> <code codeSystem="local" code="DGLUU&quot ; displayName="UA GLUCOSE DIPSTICK" /> <statusCode code ="completed" /> <effectiveTime value="398359599417 " /> <value unit="" xsi:type="PQ" value= "NEGATIVE" /> <referenceRange> < observationRange> <text>NEGATIVE</text> </ observationRange> </referenceRange> </observation&gt ; </component> <component> <observation moodCode ="EVN" classCode="OBS"> <templateId root=& quot;2.16.840.1.051251.10.20.22.4.2" /><id nullFlavor="NA" /> <code codeSystem="local" code="KETONU" displayName="UA KETONE DIPSTICK" /> <statusCode code=& quot;completed" /> <effectiveTime value="404622084417& quot; /> <value unit="" xsi:type="PQ" value=& quot;NEGATIVE" /> <referenceRange> < observationRange> <text>NEGATIVE</text> & lt;/observationRange> </referenceRange> </ observation> </component> <component> < observation moodCode="EVN" classCode="OBS"> < templateId root="2.16.840.1.014126.10.20.22.4.2" /> < id nullFlavor="NA" /> <code codeSystem="local&quot ; code="UROBILU" displayName="UA UROBILINOGEN DIPSTICK" /&gt ; <statusCode code="completed" /> < effectiveTime value="525278101489" /> <value unit=&quot ;" xsi:type="PQ" value="NORMAL" /> < referenceRange> <observationRange> <text> NORMAL</text> </observationRange> </ referenceRange> </observation> </component> < component> <observation moodCode="EVN" classCode=" OBS"> <templateId root="2.16.840.1.041593.10..22.4.2& quot; /> <id nullFlavor="NA" /> <code codeSystem="local" code="BILU" displayName="UA BILIRUBIN DIPSTICK" /> <statusCode code="completed&quot ; /> <effectiveTime value="085926359988" /> <value unit=""xsi:type="PQ" value="NEGATIVE" /& gt; <referenceRange> <observationRange> <text>NEGATIVE</text> </observationRange> </referenceRange> </observation> </component& gt; <component> <observation moodCode="EVN" classCode="OBS"><templateId root=" 2.16.840.1.842470.10.20.22.4.2" /> <id nullFlavor="NA& quot; /> <code codeSystem="local" code="ELENA" displayName="UA BLOOD DIPSTICK" /> <statusCode code=& quot;completed" /> <effectiveTime value="806623657146& quot; /> <value unit="" xsi:type="PQ" value=& quot;2+" /> <interpretationCode codeSystem="local&quot ; code="*" /> <referenceRange> < observationRange> <text>NEGATIVE</text> </ observationRange> </referenceRange> </observation&gt ; </component> <component> <observation moodCode ="EVN" classCode="OBS"> <templateId root=& quot;2.16.840.1.465225.10.20.22.4.2" /> <id nullFlavor=&quot ;NA" /> <codecodeSystem="local" code="SPGRU& quot; displayName="UA SPECIFIC GRAVITY" /> <statusCode code="completed" /> <effectiveTime value=" 209543359846" /> <value unit="" xsi:type="PQ& quot; value="1.009" /> <interpretationCode codeSystem=& quot;local" code="*" /> <referenceRange> <observationRange> <text>1.015-1.025</text> </observationRange> </referenceRange> </ observation> </component> <component> < observation moodCode="EVN" classCode="OBS"> < templateId root="2.16.840.1.732422.10..22.4.2" /> < id nullFlavor="NA" /> <code codeSystem="local&quot ; code="GEORGE" displayName="UR PH" /> < statusCode code="completed" /> <effectiveTime value=& quot;260481747383" /> <valueunit="" xsi:type=&quot ;PQ" value="7.0" /> <referenceRange> <observationRange> <text>5.0-7.0</text> </observationRange> </referenceRange> </ observation> </component> </organizer> </entry> & lt;entry> <organizer moodCode="EVN" classCode="BATTERY& quot;> <templateId root="2.16.840.1.720858.10.20.22.4.1" /& gt; <id nullFlavor="NA" /> <code codeSystem=" local" code="UAMICRO" displayName="UA MICROSCOPIC" /&gt ; <statusCode code="completed" /> <component> <observation moodCode="EVN" classCode="OBS"> <templateId root="2.16.840.1.364468.10.20.22.4.2" /> <id nullFlavor="NA" /> <code codeSystem=" local" code="BACU" displayName="UA BACTERIA" /> <statusCode code="completed" /> < effectiveTime value="798732275096" /> <value unit=&quot ;" xsi:type="PQ" value="5+" /> < interpretationCode codeSystem="local" code="*" /> <referenceRange> <observationRange> < text>NEGATIVE</text> </observationRange> < /referenceRange> </observation> </component> &lt ;component> <observation moodCode="EVN" classCode="OBS& quot;> <templateId root="2.16.840.1.641360.10.20.22.4.2&quot ; /> <id nullFlavor="NA" /> <code codeSystem="local" code="RBCU" displayName="UA RBC&quot ; /> <statusCode code="completed" /> < effectiveTime value="473220236515" /> <value unit=&quot ;rbc/hpf" xsi:type="PQ" value="10-20" /> & lt;interpretationCode codeSystem="local" code="*" /> <referenceRange> <observationRange> & lt;text>0 - 3</text> </observationRange> < /referenceRange> </observation> </component> &lt ;component> <observation moodCode="EVN" classCode=" OBS"> <templateId root="2.16.840.1.167204.10.20.22.4.2& quot; /> <id nullFlavor="NA" /> <code codeSystem="local" code="UAVOL" displayName="UA VOLUME FOR EXAM" /> <statusCode code="completed" /> <effectiveTime value="221222729939" /> <value unit="mL" xsi:type="PQ" value="12.0" /> <referenceRange> <observationRange> < text>(12mL STD)</text> </observationRange> & lt;/referenceRange> </observation> </component> <component> <observation moodCode="EVN" classCode=& quot;OBS"> <templateId root=" 2.16.840.1.572786.10..22.4.2" /> <id nullFlavor="NA& quot; /> <code codeSystem="local" code="WBCU&quot ; displayName="UA WBC" /> <statusCode code=" completed" /> <effectiveTime value="876425274014" /> <value unit="wbc/hpf" xsi:type="PQ" value= "PACKED FIELD" /> <interpretationCode codeSystem=" local" code="*" /> <referenceRange> < observationRange> <text>0 - 5</text> < /observationRange> </referenceRange> </observation& gt; </component></organizer> </entry> <entry> <organizer moodCode="EVN" classCode="BATTERY"> & lt;templateId root="2.16.840.1.814242.10.20.22.4.1" /> <id nullFlavor="NA" /> <code codeSystem="local" code= "CBCD" displayName="CBC W/DIFF" /> <statusCode code="completed" /> <component> <observation moodCode="EVN" classCode="OBS"> <templateId root="2.16.840.1.647702.10.20.22.4.2" /> <id nullFlavor ="NA" /> <code codeSystem="local" code=" EO#" displayName="EOSINOPHIL #" /> <statusCode code="completed" /> <effectiveTime value=" 315671202986" /> <value unit="k/cumm" xsi:type=& quot;PQ" value="0.2" /> <referenceRange> <observationRange> <text>0.1-0.5</text> </observationRange> </referenceRange> </ observation> </component> <component> < observation moodCode="EVN" classCode="OBS"> < templateId root="2.16.840.1.355391.10.20.22.4.2" /> < id nullFlavor="NA"/> <code codeSystem="local&quot ; code="EO%" displayName="EOSINOPHIL %" /&gt ; <statusCode code="completed" /> < effectiveTime value="005333635486" /> <value unit=&quot ;%" xsi:type="PQ" value="2" /> < referenceRange> <observationRange> <text> 2-4</text> </observationRange> </referenceRange> </observation> </component> <component> & lt;observation moodCode="EVN" classCode="OBS"> & lt;templateIdroot="2.16.840.1.336955.10.20.22.4.2" /> < id nullFlavor="NA" /> <code codeSystem="local&quot ; code="GR#" displayName="GRANULOCYTE #" /> < statusCode code="completed" /> <effectiveTime value=& quot;180913799109" /> <value unit="k/cumm" xsi: type="PQ" value="6.6" /> <referenceRange> <observationRange> <text>2.0-9.0</text> </observationRange> </referenceRange> </ observation> </component> <component> < observation moodCode="EVN" classCode="OBS"> < templateId root="2.16.840.1.743386.10..22.4.2" /> < id nullFlavor="NA" /> <code codeSystem="local&quot ; code="GR%" displayName="GRANULOCYTE %" /& gt; <statusCode code="completed" /> < effectiveTime value="931329103628" /> <value unit=&quot ;%" xsi:type="PQ"value="56" /> < referenceRange> <observationRange> <text>50-75& lt;/text> </observationRange> </referenceRange& gt; </observation> </component> <component> <observation moodCode="EVN" classCode="OBS"> <templateId root="2.16.840.1.542425.10.20.22.4.2" /> <id nullFlavor="NA" /> <code codeSystem=&quot ;local" code="LY#" displayName="LYMPHOCYTE #" /> & lt;statusCode code="completed" /> <effectiveTime value= "774961431210" /> <value unit="k/cumm" xsi: type="PQ" value="3.8" /> <referenceRange> <observationRange> <text>1.0-4.0</text& gt; </observationRange> </referenceRange> </observation> </component> <component> &lt ;observation moodCode="EVN" classCode="OBS"> &lt ;templateId root="2.16.840.1.584829.10.20.22.4.2" /> < id nullFlavor="NA" /> <code codeSystem="local&quot ; code="LY%" displayName="LYMPHOCYTE %" /&gt ;<statusCode code="completed" /> <effectiveTime value="764254589628" /> <value unit="%& quot; xsi:type="PQ" value="32" /> < interpretationCode codeSystem="local" code="*" /> < referenceRange> <observationRange> <text> 20-30</text> </observationRange> </ referenceRange> </observation> </component> < component> <observation moodCode="EVN" classCode=" OBS"> <templateId root="2.16.840.1.002445.10..22.4.2& quot; /> <id nullFlavor="NA" /> <code codeSystem="local" code="MCH" displayName="MEAN CELL HGB" /> <statusCode code="completed" /> <effectiveTime value="633925135824" /> <value unit="pg" xsi:type="PQ" value="32.0" /> <referenceRange> <observationRange> < text>27.0-33.0</text> </observationRange> &lt ;/referenceRange> </observation> </component> & lt;component> <observation moodCode="EVN" classCode=&quot ;OBS"> <templateId root="2.16.840.1.166958.10.20.22.4.2 " /> <id nullFlavor="NA" /> <code codeSystem="local" code="MCHC" displayName="MEAN CELL HGB CONCENTRATION" /> <statusCode code="completed&quot ; /> <effectiveTime value="765576238200" /> <value unit="g/dL" xsi:type="PQ" value="34.8&quot ; /> <referenceRange> <observationRange> <text>32.0-37.0</text> </observationRange&gt ; </referenceRange> </observation> </ component> <component> <observation moodCode="EVN& quot; classCode="OBS"> <templateId root=" 2.16.840.1.571348.10.20.22.4.2" /> <id nullFlavor="NA& quot; /> <code codeSystem="local" code="MCV" displayName="MEAN CELL VOLUME" /> <statusCode code=& quot;completed" /> <effectiveTime value="799083806813& quot; /> <value unit="fl" xsi:type="PQ" value ="91.7" /> <referenceRange> < observationRange> <text>80.0-100.0</text> </observationRange> </referenceRange> </ observation> </component> <component> < observation moodCode="EVN" classCode="OBS">< templateId root="2.16.840.1.246478.10.20.22.4.2" /> < id nullFlavor="NA" /> <code codeSystem="local&quot ; code="MO#" displayName="MONOCYTE #" /> < statusCode code="completed" /> <effectiveTime value=& quot;292109195608" /> <value unit="k/cumm" xsi: type="PQ" value="1.0" /> <referenceRange> <observationRange> <text>0.1-1.0</text& gt; </observationRange> </referenceRange> </observation> </component> <component> < observation moodCode="EVN" classCode="OBS"> < templateId root="2.16.840.1.603668.10.20.22.4.2" /> < id nullFlavor="NA" /> <code codeSystem="local" code="MO%" displayName="MONOCYTE %" /> <statusCode code="completed" /> < effectiveTime value="945360487969" /> <value unit=&quot ;%" xsi:type="PQ" value="8" /> < interpretationCode codeSystem="local" code="*" /> <referenceRange> <observationRange><text>4-6< /text> </observationRange> </referenceRange> </observation> </component> <component> <observation moodCode="EVN" classCode="OBS"> <templateId root="2.16.840.1.350400.10.20.22.4.2" /> & lt;id nullFlavor="NA" /> <code codeSystem="local& quot; code="RBC" displayName="RED BLOOD CELL" /> <statusCode code="completed" /> <effectiveTime value="202545974799"/> <value unit="m/cumm" xsi:type="PQ" value="4.82" /> <referenceRange > <observationRange> <text>4.00-6.00</ text> </observationRange> </referenceRange> </observation> </component> <component> <observation moodCode="EVN" classCode="OBS"> <templateId root="2.16.840.1.559344.10.20.22.4.2" /> <id nullFlavor="NA" /> <code codeSystem=" local" code="RDW" displayName="RED CELL DISTRIBUTION WIDTH& quot; /> <statusCode code="completed" /> & lt;effectiveTime value="673929953497"/> <value unit=& quot;%" xsi:type="PQ" value="12.4" /> <referenceRange> <observationRange> < text>11.0-15.6</text> </observationRange> &lt ;/referenceRange> </observation> </component> & lt;component> <observation moodCode="EVN" classCode=&quot ;OBS"> <templateId root="2.16.840.1.838073.10.20.22.4.2 " /> <id nullFlavor="NA" /> <code codeSystem="local" code="WBC" displayName="WHITE BLOOD CELL" /> <statusCode code="completed" /> <effectiveTime value="723553211193" /> <value unit= "k/cumm" xsi:type="PQ" value="11.8" /> < interpretationCode codeSystem="local" code="*" /> <referenceRange> <observationRange> < text>5.0-10.0</text> </observationRange> </ referenceRange> </observation> </component> < component> <observation moodCode="EVN" classCode=" OBS"> <templateId root="2.16.840.1.737279.10.20.22.4.2& quot; /> <id nullFlavor="NA" /> <code codeSystem="local" code="HGBT" displayName="HEMOGLOBIN& quot; /> <statusCode code="completed" /> & lt;effectiveTime value="029769440587" /> <value unit=& quot;gm/dL" xsi:type="PQ" value="15.4" /> & lt;referenceRange> <observationRange> <text>12.0- 16.0</text> </observationRange> </ referenceRange> </observation> </component> < component> <observation moodCode="EVN" classCode=" OBS"> <templateId root="2.16.840.1.189138.10.20.22.4.2&quot ; /> <id nullFlavor="NA" /> <code codeSystem="local" code="HCTT" displayName="HEMATOCRIT& quot; /> <statusCode code="completed" /> & lt;effectiveTime value="565394044974" /> <value unit=& quot;%" xsi:type="PQ" value="44.2" /> <referenceRange> <observationRange> < text>37.0-47.0</text> </observationRange> </ referenceRange> </observation> </component> < component> <observation moodCode="EVN" classCode=" OBS"> <templateId root="2.16.840.1.038236.10.20.22.4.2& quot; /> <id nullFlavor="NA" /> <code codeSystem="local" code="PLT" displayName="PLATELET COUNT" /> <statusCode code="completed" /> <effectiveTime value="223246837467" /> <value unit="k/cumm" xsi:type="PQ" value="266" /> <referenceRange> <observationRange> & lt;text>150-400</text> </observationRange> & lt;/referenceRange> </observation> </component> & lt;/organizer> </entry> <entry> <organizer moodCode=&quot ;EVN" classCode="BATTERY"><templateId root=" 2.16.840.1.518896.10.20.22.4.1" /> <id nullFlavor="NA&quot ; /> <code codeSystem="local" code="PT" displayName="PROTHROMBIN TIME WITH INR" /> <statusCode code ="completed" /> <component> <observation moodCode="EVN" classCode="OBS"> <templateId root="2.16.840.1.642988.10.20.22.4.2" /> <id nullFlavor ="NA" /> <code codeSystem="local" code=" INRX" displayName="INTERNATIONAL NORMAL RATIO" /> &lt ;statusCode code="completed" /> <effectiveTime value=& quot;817507781897" /> <value unit="" xsi:type=& quot;PQ" value="1.0" /> <referenceRange> <observationRange> <text>0.9-1.1</text> </observationRange> </referenceRange> </ observation> </component> <component> < observation moodCode="EVN" classCode="OBS"> < templateId root="2.16.840.1.380907.10.20.22.4.2" /> < id nullFlavor="NA" /> <code codeSystem="local" code="PTPAT" displayName="PROTHROMBIN TIME" /> & lt;statusCode code="completed" /> <effectiveTime value= "807725649767" /> <value unit="sec" xsi:type= "PQ" value="10.7" /> <referenceRange> <observationRange> <text>9.3-12.2</text> </observationRange> </referenceRange> </ observation> </component> </organizer> </entry> & lt;entry> <organizer moodCode="EVN" classCode="BATTERY& quot;> <templateId root="2.16.840.1.598859.10.20.22.4.1" /& gt; <id nullFlavor="NA" /> <code codeSystem=" local" code="PTT" displayName="PARTIAL THROMBOPLASTIN TIME& quot; /> <statusCode code="completed" /> < component> <observation moodCode="EVN" classCode=" OBS"> <templateId root="2.16.840.1.487227.10.20.22.4.2& quot; /> <id nullFlavor="NA" /> <code codeSystem="local" code="PTT" displayName="PARTIAL THROMBOPLASTIN TIME" /> <statusCode code="completed& quot; /> <effectiveTime value="221179131162" /> <value unit="sec" xsi:type="PQ" value="30&quot ; /> <referenceRange> <observationRange> <text>24-36</text> </observationRange> </referenceRange> </observation> </component& gt; </organizer> </entry> <entry> <organizer moodCode="EVN" classCode="BATTERY"> <templateId root= "2.16.840.1.533429.10.20.22.4.1" /> <id nullFlavor="NA " /> <code codeSystem="local" code="METAB" displayName="METABOLIC PANEL, BASIC" /> <statusCode code=& quot;completed" /> <component> <observation moodCode="EVN" classCode="OBS"> <templateId root="2.16.840.1.472671.10.20.22.4.2" /> <id nullFlavor ="NA" /> <code codeSystem="local" code=" K" displayName="POTASSIUM" /> <statusCode code=& quot;completed" /> <effectiveTime value="179977996616& quot; /> <value unit="mmol/L" xsi:type="PQ" value="3.6" /> <referenceRange> < observationRange> <text>3.5-5.3</text> </ observationRange> </referenceRange> </observation&gt ; </component> <component> <observation moodCode ="EVN" classCode="OBS"> <templateId root=& quot;2.16.840.1.645826.10.20.22.4.2" /> <id nullFlavor=&quot ;NA" /> <code codeSystem="local" code="eGFR& quot; displayName="EST GFR (MDRD)" /> <statusCode code=& quot;completed" /> <effectiveTime value="459431996816& quot; /> <value unit="mL/min" xsi:type="PQ" value="> 60" /> <referenceRange> & lt;observationRange> <text>> 59</text> </ observationRange> </referenceRange> </observation&gt ; </component> <component> <observation moodCode ="EVN" classCode="OBS"> <templateId root=& quot;2.16.840.1.418622.10.20.22.4.2" /> <id nullFlavor=&quot ;NA" /> <code codeSystem="local" code="GAP& quot; displayName="ANION GAP" /> <statusCode code=&quot ;completed" /> <effectiveTime value="471369061422&quot ; /> <value unit="mmol/L" xsi:type="PQ" value ="7" /> <referenceRange> < observationRange> <text>5-15</text> </ observationRange> </referenceRange> </observation&gt ; </component> <component> <observation moodCode ="EVN" classCode="OBS"> <templateId root=& quot;2.16.840.1.805091.10.20.22.4.2" /> <id nullFlavor=&quot ;NA" /> <code codeSystem="local" code="eCrCl& quot; displayName="EST CrCl (CG)" /> <statusCode code=& quot;completed" /> <effectiveTime value="779516453416& quot; /> <value unit="mL/min" xsi:type="PQ" value="> 60" /> <referenceRange> < observationRange> <text>> 59</text> </observationRange> </referenceRange> </ observation> </component> <component> < observation moodCode="EVN"classCode="OBS"> < templateId root="2.16.840.1.885268.10.20.22.4.2" /> < id nullFlavor="NA" /> <code codeSystem="local&quot ; code="GLU" displayName="GLUCOSE" /> < statusCode code="completed" /> <effectiveTime value=& quot;446602207735" /> <value unit="mg/dL" xsi:type ="PQ" value="87" /> <referenceRange> <observationRange> <text>70-99</text> </observationRange> </referenceRange> </ observation> </component> <component> < observation moodCode="EVN" classCode="OBS"> < templateId root="2.16.840.1.160799.10.20.22.4.2" /> < id nullFlavor="NA" /> <code codeSystem="local&quot ; code="CA" displayName="CALCIUM" /> < statusCode code="completed" /> <effectiveTime value=& quot;366624628313" /> <value unit="mg/dL" xsi:type ="PQ" value="9.3" /> <referenceRange> <observationRange> <text>8.5-10.1</text> </observationRange> </referenceRange> </ observation> </component> <component> < observation moodCode="EVN" classCode="OBS"> < templateId root="2.16.840.1.878998.10.20.22.4.2" /> < id nullFlavor="NA" /> <code codeSystem="local&quot ; code="BUN" displayName="BLOOD UREANITROGEN" /> <statusCode code="completed" /> <effectiveTime value="755587195347" /> <value unit="mg/dL" xsi:type="PQ" value="15" /> <referenceRange& gt; <observationRange> <text>7-20</text&gt ; </observationRange> </referenceRange> & lt;/observation> </component> <component> < observation moodCode="EVN" classCode="OBS"> < templateId root="2.16.840.1.736724.10.20.22.4.2" /> < id nullFlavor="NA" /> <code codeSystem="local&quot ; code="CREAT" displayName="CREATININE" /> < statusCode code="completed" /> <effectiveTime value=& quot;654599421739" /> <value unit="mg/dL" xsi:type ="PQ" value="0.7" /> <referenceRange> <observationRange> <text>0.6-1.0</text> </observationRange> </referenceRange></ observation> </component> <component> < observation moodCode="EVN" classCode="OBS"> < templateId root="2.16.840.1.327596.10.20.22.4.2" /> < id nullFlavor="NA" /> <code codeSystem="local&quot ; code="NA" displayName="SODIUM" /> < statusCode code="completed" /> <effectiveTime value=& quot;026959518045" /> <value unit="mmol/L" xsi:type=" PQ" value="137" /> <referenceRange> <observationRange> <text>135-148</text> </observationRange> </referenceRange> </ observation> </component> <component> < observation moodCode="EVN" classCode="OBS"> < templateId root="2.16.840.1.260753.10..22.4.2" /> <id nullFlavor="NA" /> <code codeSystem="local" code="CL" displayName="CHLORIDE" /> < statusCode code="completed"/> <effectiveTime value=& quot;749199176664" /> <value unit="mmol/L" xsi: type="PQ" value="101" /> <referenceRange> <observationRange> <text>98-110</text> </observationRange> </referenceRange> </ observation> </component> <component> < observation moodCode="EVN" classCode="OBS"> < templateId root="2.16.840.1.604012.10..22.4.2" /> < id nullFlavor="NA" /> <code codeSystem="local&quot ; code="CO2" displayName="CARBON DIOXIDE" /> &lt ;statusCode code="completed" /> <effectiveTime value=& quot;236100480629" /> <value unit="mmol/L" xsi: type="PQ" value="29" /> <referenceRange> <observationRange> <text>21-32</text> </observationRange> </referenceRange> </ observation> </component> </organizer></entry> &lt ;entry> <organizer moodCode="EVN" classCode="BATTERY& quot;> <templateId root="2.16.840.1.830453.10.20.22.4.1" /& gt; <id nullFlavor="NA" /> <code codeSystem=" local" code="UC" displayName="URINE CULTURE" /> <statusCode code="completed" /> <component> <observation moodCode="EVN" classCode="OBS"> <templateId root="2.16.840.1.580246.10.20.22.4.2" /> & lt;id nullFlavor="NA" /> <code codeSystem="local& quot; code="MB" displayName="Microbiology" /> & lt;statusCode code="completed" /> <effectiveTime value= "034713200833" /> <value xsi:type="ST" value= "<pre><b>URINE CULTURE</b> See BelowURINE CULTURE(F) CollDate/Time: 08/13/2014 09:31 Jose Manuel Date/Time: 08/15/2014 08:00SOURCE:URINESPEC DESC: CLEAN CATCHTREATMENT OF ASYMPTOMATIC BACTERIURIA IS NOT USUALLYCLINICALLY INDICATED.Organism #1 CITROBACTER KOSERICOLONY COUNT >100,000 CFU/ML InterpCEFAZOLIN VITEK <=4 SCEFEPIME VITEK <=1 SCEFTRIAXONE VITEK <=1 SCIPROFLOXACIN VITEK <=0.25 SGENTAMICIN VITEK <=1 SNITROFURANTOIN VITEK 32 SPIPERACILLIN/TAZOBZCTAM VITEK <=4 STRIM[facility]20[facility] [place] [address]</pre>" /> <referenceRange> <observationRange> <text /> </observationRange> </referenceRange > </observation> </component> </organizer> </entry> <entry> <organizer moodCode="EVN" classCode="BATTERY"> <templateId root=" 2.16.840.1.022282.10.20.22.4.1" /> <id nullFlavor="NA&quot ; /> <code codeSystem="local" code="SED" displayName="SED RATE" /> <statusCode code="completed& quot; /> <component> <observation moodCode="EVN&quot ; classCode="OBS"> <templateId root=" 2.16.840.1.059779.10.20.22.4.2" /> <id nullFlavor="NA& quot; /> <code codeSystem="local" code="SED" displayName="SED RATE" /> <statusCode code=" completed" /> <effectiveTime value="475827596080" /> <value unit="mm/hr" xsi:type="PQ" value=& quot;29" /> <interpretationCode codeSystem="local&quot ; code="*" /> <referenceRange> < observationRange> <text>0-15</text> </ observationRange> </referenceRange> </observation&gt ; </component> </organizer> </entry> <entry> <organizer moodCode="EVN" classCode="BATTERY"> <templateId root="2.16.840.1.382554.10.20.22.4.1" /> < id nullFlavor="NA" /> <code codeSystem="local" code="CBC" displayName="CBC" /> <statusCode code=& quot;completed" /> <component> <observation moodCode="EVN" classCode="OBS"> <templateId root="2.16.840.1.963846.10..22.4.2" /> <id nullFlavor ="NA" /> <code codeSystem="local" code=" MCH" displayName="MEAN CELL HGB" /> <statusCode code="completed" /> <effectiveTime value=" 441418694315" /> <value unit="pg" xsi:type=" PQ" value="31.4" /> <referenceRange> & lt;observationRange> <text>27.0-33.0</text> </observationRange> </referenceRange> </ observation> </component> <component> < observation moodCode="EVN" classCode="OBS"> < templateId root="2.16.840.1.287062.10.20.22.4.2" /> < id nullFlavor="NA" /> <code codeSystem="local&quot ; code="MCHC" displayName="MEAN CELL HGB CONCENTRATION" /&gt ; <statusCode code="completed" /> < effectiveTime value="302433621823" /> <value unit=&quot ;g/dL" xsi:type="PQ" value="33.1" /> < referenceRange> <observationRange> <text> 32.0-37.0</text> </observationRange> </ referenceRange> </observation> </component> < component> <observation moodCode="EVN" classCode=" OBS"> <templateId root="2.16.840.1.454624.10.20.22.4.2& quot; /> <id nullFlavor="NA" /> <code codeSystem="local" code="MCV" displayName="MEAN CELL VOLUME" /> <statusCode code="completed" /> <effectiveTime value="569076557766" /> <value unit=& quot;fl" xsi:type="PQ" value="94.9" /> < referenceRange> <observationRange> <text> 80.0-100.0</text> </observationRange> </ referenceRange> </observation> </component> < component> <observation moodCode="EVN" classCode=" OBS"> <templateId root="2.16.840.1.492678.10.20.22.4.2& quot; /> <id nullFlavor="NA" /> <code codeSystem="local" code="RBC" displayName="RED BLOOD CELL" /> <statusCode code="completed" /> <effectiveTime value="792428565128" /> <value unit="m/cumm" xsi:type="PQ" value="3.69" /> <interpretationCode codeSystem="local" code="*" /& gt; <referenceRange> <observationRange> <text>4.00-6.00</text> </observationRange> </referenceRange> </observation> </component& gt; <component> <observation moodCode="EVN" classCode="OBS"> <templateId root=" 2.16.840.1.925111.10.20.22.4.2" /> <id nullFlavor="NA& quot; /> <code codeSystem="local" code="RDW" displayName="RED CELL DISTRIBUTION WIDTH" /> < statusCode code="completed" /> <effectiveTime value=" 801725397452" /> <value unit="%" xsi:type= "PQ" value="12.9" /> <referenceRange> &lt ;observationRange> <text>11.0-15.6</text> </observationRange> </referenceRange> </ observation> </component><component> <observation moodCode="EVN" classCode="OBS"> <templateId root=& quot;2.16.840.1.225469.10.20.22.4.2" /> <id nullFlavor=&quot ;NA" /> <code codeSystem="local" code="WBC& quot; displayName="WHITE BLOOD CELL" /> <statusCode code="completed" /> <effectiveTime value=" 341732355253" /> <value unit="k/cumm" xsi:type=& quot;PQ" value="10.8" /> <interpretationCode codeSystem="local" code="*" /> < referenceRange> <observationRange> <text> 5.0-10.0</text> </observationRange> </ referenceRange> </observation> </component> < component> <observation moodCode="EVN" classCode=" OBS"> <templateId root="2.16.840.1.434338.10.20.22.4.2& quot; /> <id nullFlavor="NA" /> <code codeSystem ="local" code="HGBT" displayName="HEMOGLOBIN" /&gt ; <statusCode code="completed" /> < effectiveTime value="560508888289" /> <value unit=&quot ;gm/dL" xsi:type="PQ" value="11.6" /> < interpretationCode codeSystem="local" code="*" /> <referenceRange> <observationRange> < text>12.0-16.0</text> </observationRange> &lt ;/referenceRange> </observation> </component> & lt;component> <observation moodCode="EVN" classCode=&quot ;OBS"> <templateId root="2.16.840.1.937074.10.20.22.4.2 " /> <id nullFlavor="NA" /> <code codeSystem="local" code="HCTT" displayName="HEMATOCRIT& quot; /> <statusCode code="completed" /> & lt;effectiveTime value="430637179834" /> <value unit=& quot;%" xsi:type="PQ" value="35.0" /> <interpretationCode codeSystem="local" code="*" /&gt ; <referenceRange> <observationRange> <text>37.0-47.0</text> </observationRange> </referenceRange> </observation> </component&gt ; <component> <observation moodCode="EVN" classCode="OBS"> <templateId root=" 2.16.840.1.562872.10.20.22.4.2" /> <id nullFlavor="NA& quot; /> <code codeSystem="local" code="PLT" displayName="PLATELET COUNT" /> <statusCode code=" completed" /> <effectiveTime value="565673013048" /> <value unit="k/cumm" xsi:type="PQ" value=& quot;181" /> <referenceRange> <observationRange> <text>150-400</text> </observationRange& gt; </referenceRange> </observation> </ component> </organizer> </entry> <entry> < organizer moodCode="EVN" classCode="BATTERY"> < templateId root="2.16.840.1.881090.10.20.22.4.1" /> <id nullFlavor="NA" /> <code codeSystem="local" code= "METABC" displayName="METABOLIC PANEL, COMPREHN" /> <statusCode code="completed" /> <component> & lt;observation moodCode="EVN" classCode="OBS"> & lt;templateId root="2.16.840.1.519467.10.20.22.4.2" /> &lt ;id nullFlavor="NA" /> <code codeSystem="local& quot; code="K" displayName="POTASSIUM" /> < statusCode code="completed" /> <effectiveTime value=" 277292209182" /> <value unit="mmol/L" xsi:type=& quot;PQ" value="3.4" /> <interpretationCode codeSystem="local" code="*" /> < referenceRange> <observationRange> <text> 3.5-5.3</text> </observationRange> </ referenceRange> </observation> </component> < component> <observation moodCode="EVN" classCode="OBS& quot;> <templateId root="2.16.840.1.138573.10.20.22.4.2&quot ; /> <id nullFlavor="NA" /> <code codeSystem="local" code="eGFR" displayName="EST GFR ( MDRD)" /> <statusCode code="completed" /> <effectiveTime value="[id number]" /> <value unit="mL/min" xsi:type="PQ" value="> 60" /& gt; <referenceRange> <observationRange> <text>> 59</text> </observationRange> </referenceRange> </observation> </ component> <component> <observation moodCode="EVN" classCode="OBS"> <templateId root=" [id number]" /> <id nullFlavor="NA& quot; /> <code codeSystem="local" code="GAP" displayName="ANION GAP" /> <statusCode code=" completed" /> <effectiveTime value="[id number]" /> <value unit="mmol/L" xsi:type="PQ" value=& quot;7" /> <referenceRange> < observationRange> <text>5-15</text> </ observationRange> </referenceRange> </observation> </component> <component> <observation moodCode=" EVN" classCode="OBS"> <templateId root=" [id number]" /> <id nullFlavor="NA& quot; /> <code codeSystem="local" code="eCrCl&quot ; displayName="EST CrCl (CG)" /> <statusCode code=&quot ;completed" /> <effectiveTime value="773004445771&quot ; /> <value unit="mL/min" xsi:type="PQ" value ="> 60" /> <referenceRange> < observationRange> <text>> 59</text> </observationRange> </referenceRange> </ observation> </component> <component> < observation moodCode="EVN" classCode="OBS"> < templateId root="2.16.840.1.490876.10..22.4.2" /> < id nullFlavor="NA" /> <code codeSystem="local&quot ; code="GLU" displayName="GLUCOSE" /> < statusCode code="completed" /> <effectiveTime value=& quot;683704660906" /> <value unit="mg/dL" xsi:type="PQ " value="117" /> <interpretationCode codeSystem=& quot;local" code="*" /> <referenceRange> <observationRange> <text>70-99</text> </observationRange> </referenceRange> </ observation> </component> <component> < observation moodCode="EVN" classCode="OBS"> < templateId root="2.16.840.1.459899.10.20.22.4.2" /> < id nullFlavor="NA" /> <code codeSystem="local&quot ; code="CA" displayName="CALCIUM" /> < statusCode code="completed" /> <effectiveTime value=& quot;127070752807" /> <value unit="mg/dL" xsi:type ="PQ" value="8.2" /> <interpretationCode codeSystem="local" code="*" /> < referenceRange> <observationRange> <text>8.5- 10.1</text> </observationRange> </ referenceRange> </observation> </component> < component> <observation moodCode="EVN" classCode=" OBS"> <templateId root="2.16.840.1.998478.10.20.22.4.2& quot; /> <id nullFlavor="NA" /> <code codeSystem="local" code="BUN" displayName="BLOOD UREA NITROGEN" /> <statusCode code="completed" /> <effectiveTime value="910392994081" /> < value unit="mg/dL" xsi:type="PQ" value="13" /> <referenceRange> <observationRange> <text>7-20</text> </observationRange> & lt;/referenceRange> </observation> </component> < component> <observation moodCode="EVN" classCode=" OBS"> <templateId root="2.16.840.1.563085.10..22.4.2& quot; /> <id nullFlavor="NA" /> <code codeSystem="local" code="CREAT" displayName="CREATININE " /> <statusCode code="completed" /> & lt;effectiveTime value="480664310024" /> <value unit=& quot;mg/dL" xsi:type="PQ" value="0.6" /> < referenceRange> <observationRange> <text> 0.6-1.0</text> </observationRange> </ referenceRange> </observation> </component> < component> <observation moodCode="EVN" classCode=" OBS"> <templateId root="2.16.840.1.795506.10.20.22.4.2& quot;/> <id nullFlavor="NA" /> <code codeSystem="local"code="NA" displayName="SODIUM" / > <statusCode code="completed" /> < effectiveTime value="178301717691" /> <value unit=&quot ;mmol/L" xsi:type="PQ" value="140" /> < referenceRange> <observationRange> <text> 135-148</text> </observationRange> </ referenceRange> </observation> </component> < component> <observation moodCode="EVN" classCode=" OBS"> <templateId root="2.16.840.1.250469.10.20.22.4.2& quot; /> <id nullFlavor="NA" /> <code codeSystem="local" code="CL" displayName="CHLORIDE&quot ; /> <statusCode code="completed" /> < effectiveTime value="863789840434" /> <value unit=&quot ;mmol/L" xsi:type="PQ" value="105" /> < referenceRange> <observationRange> <text> 98-110</text> </observationRange> </referenceRange > </observation> </component> <component> <observation moodCode="EVN" classCode="OBS"> <templateId root="2.16.840.1.205539.10..22.4.2" /> <id nullFlavor="NA" /> <code codeSystem=& quot;local" code="AST" displayName="AST/SGOT" /> <statusCode code="completed" /> < effectiveTime value="789855789512" /> <value unit=&quot ;Units/L" xsi:type="PQ" value="14" /> < referenceRange> <observationRange> <text>10-37< /text> </observationRange> </referenceRange> </observation> </component> <component> <observation moodCode="EVN" classCode="OBS"> <templateId root="2.16.840.1.643836.10..22.4.2" /> <id nullFlavor="NA" /> <code codeSystem=" local" code="ALT" displayName="ALT/SGPT" /> <statusCode code="completed" /> <effectiveTime value="028852825595" /> <value unit="Units/L&quot ; xsi:type="PQ" value="18" /> <referenceRange > <observationRange> <text>< 66&lt ;/text> </observationRange> </referenceRange&gt ; </observation> </component> <component> <observation moodCode="EVN" classCode="OBS"> <templateId root="2.16.840.1.999051.10.20.22.4.2" /> <id nullFlavor="NA" /> <code codeSystem=" local" code="CO2" displayName="CARBON DIOXIDE" /> <statusCode code="completed" /> < effectiveTime value="976774416145" /> <value unit="mmol/ L" xsi:type="PQ" value="28" /> < referenceRange> <observationRange> <text> 21-32</text> </observationRange> </ referenceRange> </observation> </component> < component> <observation moodCode="EVN" classCode=" OBS"> <templateId root="2.16.840.1.561630.10.20.22.4.2& quot; /> <id nullFlavor="NA" /> <code codeSystem="local" code="TP" displayName="TOTAL PROTEIN " /> <statusCode code="completed" /> & lt;effectiveTime value="078934070101" /> <value unit=& quot;gm/dL" xsi:type="PQ" value="5.7" /> & lt;interpretationCode codeSystem="local" code="*" /> <referenceRange> <observationRange> & lt;text>6.4-8.2</text> </observationRange> & lt;/referenceRange> </observation> </component> <component> <observation moodCode="EVN" classCode=& quot;OBS"> <templateId root=" 2.16.840.1.551961.10.20.22.4.2" /> <id nullFlavor="NA& quot; /> <code codeSystem="local" code="ALB" displayName="ALBUMIN" /> <statusCode code=" completed" /> <effectiveTime value="613387465199" /> <value unit="gm/dL" xsi:type="PQ" value=& quot;2.8" /> <interpretationCode codeSystem="local&quot ; code="*" /> <referenceRange> < observationRange> <text>3.4-5.0</text> & lt;/observationRange> </referenceRange> </observation&gt ; </component> <component> <observation moodCode ="EVN" classCode="OBS"> <templateId root=& quot;2.16.840.1.596274.10.20.22.4.2" /> <id nullFlavor=&quot ;NA" /> <code codeSystem="local" code="BILTOT " displayName="BILI TOTAL" /> <statusCode code=& quot;completed" /> <effectiveTime value="976534557935& quot; /> <value unit="mg/dL" xsi:type="PQ" value="0.4" /> <referenceRange> < observationRange> <text>0.0-1.0</text> & lt;/observationRange> </referenceRange> </ observation> </component> <component> < observation moodCode="EVN"classCode="OBS"> < templateId root="2.840.1.248746.10.20.22.4.2" /> < id nullFlavor="NA" /> <code codeSystem="local&quot ; code="ALKP" displayName="ALKALINE PHOSPHATASE TOTAL" /&gt ; <statusCode code="completed" /> < effectiveTime value="908426701550" /> <value unit=" IU/L" xsi:type="PQ" value="60" /> < referenceRange> <observationRange> <text> 45-117</text> </observationRange> </ referenceRange> </observation> </component> </ organizer> </entry> <entry> <organizer moodCode="EVN " classCode="BATTERY"> <templateId root=" 04.30.840.1.389584.10.20.22.4.1" /> <id nullFlavor="NA&quot ; /> <code codeSystem="local" code="UA" displayName="URINALYSIS, ROUTINE" /> <statusCode code=&quot ;completed" /> <component> <observation moodCode=& quot;EVN" classCode="OBS"> <templateId root=" 284.1.468503.10.20.22.4.2" /> <id nullFlavor="NA& quot; /> <code codeSystem="local" code="LEUESU& quot; displayName="UA LEUKOCYTE ESTERASE DIPSTICK" /> < statusCode code="completed" /> <effectiveTime value=& quot;408668469001" /> <value unit="" xsi:type=& quot;PQ" value="TRACE" /> <interpretationCode codeSystem="local" code="*" /> < referenceRange> <observationRange> <text> NEGATIVE</text> </observationRange> </ referenceRange> </observation> </component> < component> <observation moodCode="EVN" classCode=" OBS"> <templateId root="2.16.840.1.263583.10.20.22.4.2& quot; /> <id nullFlavor="NA" /> <code codeSystem="local" code="NITRIU" displayName="UA NITRITE DIPSTICK" /> <statusCode code="completed" /> <effectiveTime value="593545304282" /> & lt;valueunit="" xsi:type="PQ" value="NEGATIVE" /& gt; <referenceRange> <observationRange> <text>NEGATIVE</text> </observationRange> </referenceRange> </observation> </component& gt; <component> <observation moodCode="EVN" classCode="OBS"> <templateId root=" 2.16.840.1.544690.10.20.22.4.2" /> <id nullFlavor="NA& quot; /> <code codeSystem="local" code="PROTEIU& quot; displayName="UA PROTEIN DIPSTICK" /> <statusCode code="completed" /> <effectiveTime value=" 377242990179" /> <value unit="" xsi:type="PQ& quot; value="NEGATIVE" /> <referenceRange> <observationRange> <text>NEGATIVE</text> </observationRange> </referenceRange> </ observation> </component> <component> < observation moodCode="EVN" classCode="OBS"> < templateId root="2.16.840.1.213180.10.20.22.4.2" /> < id nullFlavor="NA" /> <code codeSystem="local&quot ; code="DGLUU" displayName="UA GLUCOSE DIPSTICK" /> <statusCode code="completed" /> <effectiveTime value="928654638579" /> <value unit="" xsi: type="PQ" value="NEGATIVE" /> <referenceRange > <observationRange> <text>NEGATIVE</text> </observationRange> </referenceRange> </ observation> </component> <component> < observation moodCode="EVN" classCode="OBS"> < templateId root="2.16.840.1.584429.10.20.22.4.2" /> < id nullFlavor="NA" /> <code codeSystem="local&quot ; code="KETONU" displayName="UA KETONE DIPSTICK" /> <statusCode code="completed" /> <effectiveTime value=& quot;632905432626" /> <value unit="" xsi:type=& quot;PQ" value="NEGATIVE" /> <referenceRange> <observationRange> <text>NEGATIVE</text& gt; </observationRange> </referenceRange> </observation> </component> <component> < observation moodCode="EVN" classCode="OBS"> < templateId root="2.16.840.1.448848.10.20.22.4.2" /> < id nullFlavor="NA" /> <code codeSystem="local&quot ; code="UROBILU" displayName="UA UROBILINOGEN DIPSTICK" /&gt ; <statusCode code="completed" /><effectiveTime value="704217742049" /> <value unit="" xsi: type="PQ" value="NORMAL" /> <referenceRange& gt; <observationRange> <text>NORMAL</text > </observationRange> </referenceRange> </ observation> </component> <component> < observation moodCode="EVN" classCode="OBS"> < templateId root="2.16.840.1.383562.10.20.22.4.2" /> < id nullFlavor="NA" /> <code codeSystem="local&quot ; code="BILU" displayName="UA BILIRUBIN DIPSTICK" /> <statusCode code="completed" /> < effectiveTime value="720195799436" /> <value unit=&quot ;" xsi:type="PQ" value="NEGATIVE" /> < referenceRange> <observationRange> <text> NEGATIVE</text> </observationRange> </ referenceRange> </observation> </component> < component><observation moodCode="EVN" classCode="OBS"& gt; <templateId root="2.16.840.1.855223.10.20.22.4.2" /&gt ; <id nullFlavor="NA" /> <code codeSystem=" local" code="ELENA" displayName="UA BLOOD DIPSTICK" /&gt ; <statusCode code="completed" /> < effectiveTime value="037169791309" /> <value unit=&quot ;" xsi:type="PQ" value="1+" /> < interpretationCode codeSystem="local" code="*" /> <referenceRange> <observationRange> < text>NEGATIVE</text> </observationRange> < /referenceRange> </observation> </component> &lt ;component> <observation moodCode="EVN" classCode=" OBS"> <templateId root="2.16.840.1.281442.10.20.22.4.2& quot; /> <id nullFlavor="NA" /> <code codeSystem="local" code="SPGRU" displayName="UA SPECIFIC GRAVITY" /> <statusCode code="completed" /> <effectiveTime value="391724864602" /> & lt;value unit="" xsi:type="PQ" value="1.005" /&gt ; <interpretationCode codeSystem="local" code="*&quot ; /> <referenceRange> <observationRange> <text>1.015-1.025</text> </observationRange> </referenceRange> </observation> </component&gt ; <component> <observation moodCode="EVN" classCode="OBS"> <templateId root=" 2.16.840.1.844590.10..22.4.2" /> <id nullFlavor="NA& quot; /> <code codeSystem="local" code="GEORGE" displayName="UR PH" /> <statusCode code="completed " /> <effectiveTime value="960257376903" /> <value unit="" xsi:type="PQ" value="6.5" /& gt; <referenceRange> <observationRange> <text>5.0-7.0</text> </observationRange> </referenceRange> </observation> </component> </organizer> </entry> <entry> <organizer moodCode=& quot;EVN" classCode="BATTERY"> <templateId root=" 2.16.840.1.786153.10.20.22.4.1" /> <id nullFlavor="NA&quot ; /> <code codeSystem="local" code="UAMICRO" displayName="UA MICROSCOPIC" /> <statusCode code=" completed" /> <component> <observation moodCode=& quot;EVN" classCode="OBS"><templateId root=" 2.16.840.1.823672.10.20.22.4.2" /> <id nullFlavor="NA& quot; /> <code codeSystem="local" code="EPIU&quot ; displayName="UA EPITHELIAL CELLS" /> <statusCode code ="completed" /> <effectiveTime value="113279280335 " /> <value unit="epi/hpf" xsi:type="PQ&quot ; value="2+" /> <interpretationCode codeSystem=" local" code="*" /> <referenceRange> <observationRange> <text>0 - 1+</text> </observationRange> </referenceRange> </ observation> </component> <component> < observation moodCode="EVN" classCode="OBS"> < templateId root="2.16.840.1.194985.10.20.22.4.2" /> < id nullFlavor="NA" /> <code codeSystem="local&quot ; code="RBCU" displayName="UA RBC" /> <statusCode code="completed" /> <effectiveTime value=" 251048669447" /> <value unit="rbc/hpf" xsi:type=& quot;PQ" value="0-3" /> <referenceRange> <observationRange> <text>0 - 3</text> </observationRange> </referenceRange> </ observation> </component> <component> < observation moodCode="EVN" classCode="OBS"> < templateId root="2.16.840.1.646072.10.20.22.4.2" /> < id nullFlavor="NA" /> <code codeSystem="local&quot ; code="UAVOL" displayName="UA VOLUME FOR EXAM" /> <statusCode code="completed" /> <effectiveTime value="511264949690" /> <value unit="mL" xsi: type="PQ" value="12.0" /> <referenceRange> <observationRange> <text>(12mL STD)</text&gt ; </observationRange> </referenceRange> & lt;/observation> </component> <component> < observation moodCode="EVN" classCode="OBS"> < templateId root="2.16.840.1.354530.10.20.22.4.2" /> < id nullFlavor="NA" /> <code codeSystem="local&quot ; code="WBCU" displayName="UA WBC" /> < statusCode code="completed" /> <effectiveTime value=& quot;282306813500" /> <valueunit="wbc/hpf" xsi: type="PQ" value="5-10" /> < interpretationCode codeSystem="local" code="*" /> <referenceRange> <observationRange> <text> 0 - 5</text> </observationRange> </ referenceRange> </observation> </component> </ organizer> </entry> <entry> <organizer moodCode="EVN " classCode="BATTERY"> <templateId root=" 2.16.840.1.974348.10.20.22.4.1" /><id nullFlavor="NA" /&gt ; <code codeSystem="local" code="CBC" displayName=& quot;CBC" /> <statusCode code="completed" /> & lt;component> <observation moodCode="EVN" classCode=&quot ;OBS"> <templateId root="2.16.840.1.822103.10.20.22.4.2 " /> <id nullFlavor="NA" /> <code codeSystem="local" code="MCH" displayName="MEAN CELL HGB" /> <statusCode code="completed" /> <effectiveTime value="502590461271" /> <value unit="pg" xsi:type="PQ" value="30.9" /> <referenceRange> <observationRange> < text>27.0-33.0</text> </observationRange> &lt ;/referenceRange> </observation> </component> & lt;component><observation moodCode="EVN" classCode="OBS& quot;> <templateId root="2.16.840.1.139868.10.20.22.4.2&quot ; /> <id nullFlavor="NA" /> <code codeSystem=& quot;local" code="MCHC" displayName="MEAN CELL HGB CONCENTRATION" /> <statusCode code="completed" /& gt; <effectiveTime value="610881412061" /> &lt ;value unit="g/dL" xsi:type="PQ" value="32.8" /&gt ; <referenceRange> <observationRange> <text>32.0-37.0</text> </observationRange> </referenceRange> </observation> </component&gt ; <component> <observation moodCode="EVN" classCode="OBS"> <templateId root=" 2.16.840.1.771267.10.20.22.4.2" /> <id nullFlavor="NA& quot; /> <code codeSystem="local" code="MCV" displayName="MEAN CELL VOLUME" /> <statusCode code=& quot;completed" /> <effectiveTime value="418820544904& quot; /> <value unit="fl" xsi:type="PQ" value ="94.2" /> <referenceRange> < observationRange> <text>80.0-100.0</text> </observationRange> </referenceRange> </ observation> </component> <component> < observation moodCode="EVN" classCode="OBS"> < templateId root="2.16.840.1.428410.10.20.22.4.2" /> < id nullFlavor="NA" /> <code codeSystem="local&quot ; code="RBC" displayName="RED BLOOD CELL" /> < statusCode code="completed" /> <effectiveTime value=& quot;480771596222" /> <value unit="m/cumm" xsi: type="PQ" value="3.82" /> < interpretationCode codeSystem="local" code="*" /> < referenceRange> <observationRange> <text> 4.00-6.00</text> </observationRange> </ referenceRange> </observation> </component> < component> <observation moodCode="EVN" classCode=" OBS"> <templateId root="2.16.840.1.649609.10.20.22.4.2& quot; /> <id nullFlavor="NA" /> <code codeSystem="local" code="RDW" displayName="RED CELL DISTRIBUTION WIDTH" /> <statusCode code="completed&quot ; /> <effectiveTime value="516296086028" /> &lt ;value unit="%" xsi:type="PQ" value="13.0&quot ; /> <referenceRange> <observationRange> <text>11.0-15.6</text> </observationRange> </referenceRange> </observation> </component&gt ; <component> <observation moodCode="EVN" classCode="OBS"> <templateId root=" 2.16.840.1.800188.10.20.22.4.2" /> <id nullFlavor="NA& quot; /> <code codeSystem="local" code="WBC" displayName="WHITE BLOOD CELL" /> <statusCode code=& quot;completed" /> <effectiveTime value="763385490681& quot; /> <value unit="k/cumm" xsi:type="PQ" value="9.6" /> <referenceRange> < observationRange> <text>5.0-10.0</text> </ observationRange> </referenceRange> </observation&gt ; </component> <component> <observation moodCode ="EVN" classCode="OBS"> <templateId root=& quot;2.16.840.1.754264.10.20.22.4.2" /> <id nullFlavor="NA& quot; /> <code codeSystem="local" code="HGBT&quot ; displayName="HEMOGLOBIN" /> <statusCode code=" completed" /> <effectiveTime value="002380064915" /> <value unit="gm/dL" xsi:type="PQ" value=& quot;11.8" /> <interpretationCode codeSystem="local& quot; code="*" /> <referenceRange> < observationRange> <text>12.0-16.0</text> </observationRange> </referenceRange> </ observation> </component> <component> < observation moodCode="EVN" classCode="OBS"> < templateId root="2.16.840.1.159145.10.20.22.4.2" /> < id nullFlavor="NA" /> <code codeSystem="local&quot ; code="HCTT" displayName="HEMATOCRIT" /> < statusCode code="completed" /> <effectiveTime value=& quot;284864602226" /> <value unit="%" xsi: type="PQ" value="36.0" /> < interpretationCode codeSystem="local" code="*" /> <referenceRange> <observationRange> <text>37.0 -47.0</text> </observationRange> </ referenceRange> </observation> </component> < component> <observation moodCode="EVN" classCode=" OBS"> <templateId root="2.16.840.1.738408.10.20.22.4.2& quot; /> <id nullFlavor="NA" /> <code codeSystem="local" code="PLT" displayName="PLATELET COUNT" /> <statusCode code="completed" /> & lt;effectiveTime value="487190286300" /> <value unit=& quot;k/cumm" xsi:type="PQ" value="170" /> & lt;referenceRange> <observationRange> <text& gt;150-400</text> </observationRange> </ referenceRange> </observation> </component> </ organizer> </entry> <entry> <organizer moodCode="EVN " classCode="BATTERY"> <templateId root=" 2.16.840.1.265895.10.20.22.4.1" /> <id nullFlavor="NA&quot ; /> <code codeSystem="local" code="METAB" displayName="METABOLIC PANEL, BASIC" /> <statusCode code=& quot;completed" /> <component> <observation moodCode="EVN" classCode="OBS"> <templateId root="2.16.840.1.926973.10.20.22.4.2" /> <id nullFlavor ="NA" /> <codecodeSystem="local" code="K " displayName="POTASSIUM" /> <statusCode code=& quot;completed" /> <effectiveTime value="141089498895& quot; /> <value unit="mmol/L" xsi:type="PQ" value="3.6" /> <referenceRange> < observationRange> <text>3.5-5.3</text> & lt;/observationRange> </referenceRange> </ observation> </component> <component> < observation moodCode="EVN" classCode="OBS"> < templateId root="2.16.840.1.534049.10.20.22.4.2" /> < id nullFlavor="NA" /> <code codeSystem="local&quot ; code="eGFR" displayName="EST GFR (MDRD)" /> & lt;statusCode code="completed" /> <effectiveTime value= "230989857700" /> <value unit="mL/min" xsi:type=" PQ" value="> 60" /> <referenceRange> <observationRange> <text>> 59</text> </observationRange> </referenceRange> </ observation> </component> <component> < observation moodCode="EVN" classCode="OBS"> < templateId root="2.16.840.1.858860.10.20.22.4.2" /> < id nullFlavor="NA" /> <code codeSystem="local&quot ; code="GAP" displayName="ANION GAP" /> < statusCode code="completed" /> <effectiveTime value=& quot;993944498304" /> <value unit="mmol/L" xsi: type="PQ" value="7" /> <referenceRange> <observationRange> <text>5-15</text> </observationRange> </referenceRange> < /observation> </component> <component> < observation moodCode="EVN" classCode="OBS"> < templateId root="2.16.840.1.557017.10.20.22.4.2" /> < id nullFlavor="NA" /> <code codeSystem="local&quot ; code="eCrCl"displayName="EST CrCl (CG)" /> &lt ;statusCode code="completed" /> <effectiveTime value=& quot;295283197967" /> <value unit="mL/min" xsi: type="PQ" value="> 60" /> < referenceRange> <observationRange> <text>&amp ;gt; 59</text> </observationRange> </ referenceRange> </observation> </component> < component> <observation moodCode="EVN" classCode=" OBS"> <templateId root="2.16.840.1.546177.10.20.22.4.2& quot; /> <id nullFlavor="NA" /> <code codeSystem="local" code="GLU" displayName="GLUCOSE&quot ; /> <statusCode code="completed" /> < effectiveTime value="249376236703" /> <value unit=&quot ;mg/dL" xsi:type="PQ" value="107" /> < interpretationCode codeSystem="local" code="*" /> <referenceRange> <observationRange> <text >70-99</text> </observationRange> </ referenceRange> </observation> </component> < component> <observation moodCode="EVN" classCode=" OBS"> <templateId root="2.16.840.1.571398.10.20.22.4.2& quot; /> <id nullFlavor="NA" /> <code codeSystem="local" code="CA" displayName="CALCIUM&quot ; /><statusCode code="completed" /> < effectiveTime value="177576907494" /> <value unit=&quot ;mg/dL" xsi:type="PQ" value="8.3" /> < interpretationCode codeSystem="local" code="*" /> <referenceRange> <observationRange> < text>8.5-10.1</text> </observationRange> < /referenceRange> </observation> </component> < component> <observation moodCode="EVN" classCode=" OBS"> <templateId root="2.16.840.1.670197.10.20.22.4.2& quot; /> <id nullFlavor="NA" /> <code codeSystem="local" code="BUN" displayName="BLOOD UREA NITROGEN" /> <statusCode code="completed" /> <effectiveTime value="711410934000" /> < value unit="mg/dL" xsi:type="PQ" value="7" /> <referenceRange> <observationRange> <text>7-20</text> </observationRange> & lt;/referenceRange> </observation> </component> <component> <observation moodCode="EVN" classCode=& quot;OBS"> <templateId root=" 2.16.840.1.644313.10.20.22.4.2" /> <idnullFlavor="NA& quot; /> <code codeSystem="local" code="CREAT&quot ; displayName="CREATININE" /> <statusCode code=" completed" /> <effectiveTime value="955865767280" /& gt; <value unit="mg/dL" xsi:type="PQ" value=& quot;0.7" /> <referenceRange> < observationRange> <text>0.6-1.0</text> & lt;/observationRange> </referenceRange> </ observation> </component> <component> < observation moodCode="EVN" classCode="OBS"> < templateId root="2.16.840.1.011259.10.20.22.4.2" /> < id nullFlavor="NA" /> <code codeSystem="local&quot ; code="NA" displayName="SODIUM" /> < statusCode code="completed" /> <effectiveTime value=& quot;483422350552" /> <value unit="mmol/L" xsi: type="PQ" value="139" /> <referenceRange> <observationRange> <text>135-148</text> </observationRange> </referenceRange> &lt ;/observation> </component> <component> < observation moodCode="EVN" classCode="OBS"> < templateId root="2.16.840.1.032103.10.20.22.4.2" /> < id nullFlavor="NA" /> <code codeSystem="local&quot ; code="CL" displayName="CHLORIDE" /> <statusCode code="completed" /> <effectiveTime value=" 716287011680" /> <value unit="mmol/L" xsi:type=& quot;PQ" value="102" /> <referenceRange> <observationRange> <text>98-110</text> </observationRange> </referenceRange> </ observation> </component> <component> < observation moodCode="EVN" classCode="OBS"> < templateId root="2.16.840.1.087037.10.20.22.4.2" /> < id nullFlavor="NA" /> <code codeSystem="local&quot ; code="CO2" displayName="CARBON DIOXIDE" /> &lt ;statusCodecode="completed" /> <effectiveTime value=& quot;474033344741" /> <value unit="mmol/L" xsi:type=& quot;PQ" value="30" /> <referenceRange> <observationRange> <text>21-32</text> </observationRange> </referenceRange> </ observation> </component> </organizer> </entry> < entry> <organizer moodCode="EVN" classCode="BATTERY&quot ;> <templateId root="2.16.840.1.415493.10.20.22.4.1" /> <id nullFlavor="NA" /> <code codeSystem=" local" code="UC" displayName="URINE CULTURE" /> <statusCode code="completed" /> <component> <observation moodCode="EVN" classCode="OBS"> <templateId root="2.16.840.1.382871.10.20.22.4.2" /> & lt;id nullFlavor="NA" /> <code codeSystem="local& quot; code="MB" displayName="Microbiology" /> & lt;statusCode code="completed" /> <effectiveTime value= "716630298627" /> <value xsi:type="ST" value= "<pre><b>URINE CULTURE</b> See BelowURINE CULTURE(F) Jeffry Date/Time: 08/22/2014 09:45 Jose Manuel Date/Time: 08/24/2014 10:23SOURCE: URINESPEC DESC: CLEAN [id number] [facility] [facility] [place] [place] [address]</pre>& quot; /> <referenceRange> <observationRange> <text /> </observationRange> </ referenceRange> </observation> </component> </ organizer> </entry> <entry> <organizer moodCode="EVN " classCode="BATTERY"> <templateId root=" 2.16.840.1.898735.10.20.22.4.1" /> <id nullFlavor="NA&quot ; /> <code codeSystem="local" code="UA" displayName="URINALYSIS,ROUTINE" /> <statusCode code=" completed" /> <component> <observation moodCode="EVN " classCode="OBS"> <templateId root=" 2.16.840.1.742349.10.20.22.4.2" /> <id nullFlavor="NA& quot; /> <code codeSystem="local" code="LEUESU" displayName="UA LEUKOCYTE ESTERASE DIPSTICK" /> < statusCode code="completed" /> <effectiveTime value=& quot;107918638608" /> <value unit="" xsi:type=& quot;PQ" value="TRACE" /> <interpretationCode codeSystem="local" code="*" /> < referenceRange> <observationRange> <text>NEGATIVE&lt ;/text> </observationRange> </referenceRange&gt ; </observation> </component> <component> <observation moodCode="EVN" classCode="OBS"> <templateId root="2.16.840.1.496656.10.20.22.4.2" /> <id nullFlavor="NA" /> <codecodeSystem=" local" code="NITRIU" displayName="UA NITRITE DIPSTICK" /> <statusCode code="completed" /> < effectiveTime value="541322961416" /> <value unit=&quot ;" xsi:type="PQ" value="NEGATIVE" /> < referenceRange> <observationRange> <text> NEGATIVE</text> </observationRange> </ referenceRange> </observation> </component> < component> <observation moodCode="EVN" classCode=" OBS"> <templateId root="2.16.840.1.038637.10.20.22.4.2& quot; /> <id nullFlavor="NA" /> <code codeSystem="local" code="PROTEIU" displayName="UA PROTEIN DIPSTICK" /> <statusCode code="completed" /> <effectiveTime value="046286367040" /> < value unit="" xsi:type="PQ" value="NEGATIVE" /&gt ; <referenceRange> <observationRange> <text>NEGATIVE</text> </observationRange> </referenceRange> </observation> </component&gt ; <component> <observation moodCode="EVN" classCode="OBS"> <templateId root=" 2.16.840.1.240523.10.20.22.4.2" /> <id nullFlavor="NA& quot; /> <code codeSystem="local" code="DGLUU&quot ; displayName="UA GLUCOSE DIPSTICK" /> <statusCode code ="completed" /> <effectiveTime value="412942253854 "/> <value unit="" xsi:type="PQ" value=& quot;1+" /> <interpretationCode codeSystem="local" code=& quot;*" /> <referenceRange> < observationRange> <text>NEGATIVE</text> </ observationRange> </referenceRange> </observation&gt ; </component> <component> <observation moodCode ="EVN" classCode="OBS"> <templateId root=& quot;2.16.840.1.961146.10.20.22.4.2" /> <id nullFlavor=&quot ;NA" /> <code codeSystem="local" code="KETONU " displayName="UA KETONE DIPSTICK" /> <statusCode code="completed" /> <effectiveTime value=" 969386118433" /> <value unit="" xsi:type="PQ& quot; value="NEGATIVE" /> <referenceRange> <observationRange> <text>NEGATIVE</text> </observationRange> </referenceRange> </ observation> </component> <component> < observation moodCode="EVN" classCode="OBS"> < templateId root="2.16.840.1.546433.10.20.22.4.2" /> < id nullFlavor="NA" /> <code codeSystem="local&quot ; code="UROBILU"displayName="UA UROBILINOGEN DIPSTICK" /&gt ; <statusCode code="completed" /> < effectiveTime value="178756493119" /> <value unit=&quot ;" xsi:type="PQ" value="NORMAL" /> < referenceRange> <observationRange> <text> NORMAL</text> </observationRange> </ referenceRange> </observation> </component> < component> <observation moodCode="EVN" classCode=" OBS"> <templateId root="2.16.840.1.844012.10.20.22.4.2& quot; /> <id nullFlavor="NA" /> <code codeSystem="local" code="BILU" displayName="UA BILIRUBIN DIPSTICK" /> <statusCode code="completed&quot ; /> <effectiveTime value="084038696607" /> & lt;value unit="" xsi:type="PQ" value="NEGATIVE" /& gt; <referenceRange> <observationRange> <text>NEGATIVE</text> </observationRange> </referenceRange> </observation> </component& gt; <component> <observation moodCode="EVN" classCode="OBS"> <templateId root=" 2.16.840.1.109602.10..22.4.2" /> <id nullFlavor="NA& quot; /> <code codeSystem="local" code="ELENA" displayName="UA BLOOD DIPSTICK" /> <statusCode code=& quot;completed" /> <effectiveTime value="235679209060& quot; /> <value unit="" xsi:type="PQ" value=& quot;2+" /> <interpretationCode codeSystem="local&quot ; code="*" /> <referenceRange> < observationRange> <text>NEGATIVE</text> </ observationRange> </referenceRange> </observation&gt ; </component> <component> <observation moodCode ="EVN" classCode="OBS"> <templateId root=& quot;2.16.840.1.229967.10.20.22.4.2" /> <id nullFlavor=&quot ;NA" /> <code codeSystem="local" code="SPGRU& quot; displayName="UA SPECIFIC GRAVITY" /> <statusCode code="completed" /> <effectiveTime value=" 584498872444" /> <value unit="" xsi:type="PQ& quot; value="1.008" /> <interpretationCode codeSystem=& quot;local" code="*" /> <referenceRange> & lt;observationRange> <text>1.015-1.025</text> </observationRange> </referenceRange> </ observation> </component> <component> < observation moodCode="EVN" classCode="OBS"> < templateId root="2.16.840.1.859615.10.20.22.4.2" /> < id nullFlavor="NA" /> <code codeSystem="local&quot ; code="GEORGE" displayName="UR PH" /> < statusCode code="completed" /> <effectiveTime value=& quot;610306594210" /> <value unit="" xsi:type=& quot;PQ" value="6.5" /> <referenceRange> <observationRange> <text>5.0-7.0</text> </observationRange> </referenceRange> </ observation> </component> </organizer> </entry> & lt;entry> <organizer moodCode="EVN" classCode="BATTERY& quot;> <templateId root="2.16.840.1.232045.10.20.22.4.1" /& gt; <id nullFlavor="NA" /> <code codeSystem=" local" code="UAMICRO" displayName="UA MICROSCOPIC" /&gt ; <statusCode code="completed" /> <component> <observation moodCode="EVN" classCode="OBS"> <templateId root="2.16.840.1.577511.10.20.22.4.2" /> <id nullFlavor="NA" /> <code codeSystem=" local" code="BACU" displayName="UA BACTERIA" /> <statusCode code="completed" /> < effectiveTime value="768101209864" /> <value unit=&quot ;" xsi:type="PQ" value="2+" /> < interpretationCode codeSystem="local" code="*" /> <referenceRange> <observationRange> < text>NEGATIVE</text> </observationRange> < /referenceRange> </observation> </component> &lt ;component> <observation moodCode="EVN" classCode="OBS& quot;> <templateId root="2.16.840.1.317910.10.20.22.4.2&quot ; /> <id nullFlavor="NA" /> <code codeSystem ="local" code="EPIU" displayName="UA EPITHELIAL CELLS& quot; /> <statusCode code="completed" /> & lt;effectiveTime value="802850979090" /> <value unit=& quot;epi/hpf" xsi:type="PQ" value="2+" /> & lt;interpretationCode codeSystem="local" code="*" /> <referenceRange> <observationRange> & lt;text>0 - 1+</text> </observationRange> &lt ;/referenceRange> </observation> </component> < component> <observation moodCode="EVN" classCode=" OBS"> <templateId root="2.16.840.1.194643.10.20.22.4.2& quot; /> <id nullFlavor="NA" /> <code codeSystem="local" code="RBCU" displayName="UA RBC&quot ; /> <statusCodecode="completed" /> < effectiveTime value="675974688122" /> <value unit="rbc/ hpf" xsi:type="PQ" value="5-10" /> < interpretationCode codeSystem="local" code="*" /> <referenceRange> <observationRange> < text>0 - 3</text> </observationRange> </ referenceRange> </observation> </component> < component> <observation moodCode="EVN" classCode=" OBS"> <templateId root="2.16.840.1.655100.10.20.22.4.2& quot; /> <id nullFlavor="NA" /> <code codeSystem="local" code="UAVOL" displayName="UA VOLUME FOR EXAM" /> <statusCode code="completed" /> <effectiveTime value="938041570649" /> < value unit="mL" xsi:type="PQ" value="12.0" /> <referenceRange> <observationRange> < text>(12mL STD)</text> </observationRange> & lt;/referenceRange> </observation> </component> & lt;component> <observation moodCode="EVN" classCode=&quot ;OBS"> <templateId root="2.16.840.1.456168.10.20.22.4.2& quot; /> <id nullFlavor="NA" /> <code codeSystem="local" code="WBCU" displayName="UA WBC&quot ; /> <statusCode code="completed" /> < effectiveTime value="229175794669" /> <value unit=&quot ;wbc/hpf" xsi:type="PQ" value="10-20" /> & lt;interpretationCode codeSystem="local" code="*" /> <referenceRange> <observationRange> < text>0 - 5</text> </observationRange> </ referenceRange> </observation> </component> </ organizer> </entry> <entry> <organizer moodCode="EVN& quot; classCode="BATTERY"> <templateId root=" 2.16.840.1.842577.10.20.22.4.1" /> <id nullFlavor="NA&quot ; /> <code codeSystem="local" code="CBC" displayName="CBC" /> <statusCode code="completed&quot ; /> <component> <observation moodCode="EVN" classCode="OBS"> <templateId root=" 2.16.840.1.576263.10.20.22.4.2" /> <id nullFlavor="NA& quot; /> <code codeSystem="local" code="MCH" displayName="MEAN CELL HGB" /> <statusCode code="completed& quot; /> <effectiveTime value="785421925443" /> <value unit="pg" xsi:type="PQ" value="30.8& quot; /> <referenceRange> <observationRange> <text>27.0-33.0</text> </ observationRange> </referenceRange> </observation&gt ; </component> <component> <observation moodCode ="EVN" classCode="OBS"> <templateId root=& quot;2.16.840.1.446196.10.20.22.4.2" /> <id nullFlavor=&quot ;NA" /> <code codeSystem="local" code="MCHC& quot; displayName="MEAN CELL HGB CONCENTRATION" /> < statusCode code="completed" /> <effectiveTime value=& quot;763363710774" /> <value unit="g/dL" xsi:type= "PQ" value="32.8" /> <referenceRange> <observationRange> <text>32.0-37.0</text&gt ; </observationRange> </referenceRange> & lt;/observation> </component> <component> < observation moodCode="EVN" classCode="OBS"> < templateId root="2.16.840.1.754845.10.20.22.4.2" /> < id nullFlavor="NA" /> <code codeSystem="local&quot ; code="MCV" displayName="MEAN CELL VOLUME" /> & lt;statusCodecode="completed" /> <effectiveTime value=& quot;996525748301" /> <value unit="fl" xsi:type=" PQ" value="93.9" /> <referenceRange> <observationRange> <text>80.0-100.0</text> </observationRange> </referenceRange> </ observation> </component> <component> < observation moodCode="EVN" classCode="OBS"> < templateId root="2.16.840.1.527291.10.20.22.4.2" /> < id nullFlavor="NA" /> <code codeSystem="local&quot ; code="RBC" displayName="RED BLOOD CELL" /> &lt ;statusCode code="completed" /> <effectiveTime value=& quot;635807257990" /> <value unit="m/cumm" xsi: type="PQ" value="3.80" /> < interpretationCode codeSystem="local" code="*" /> <referenceRange> <observationRange> <text> 4.00-6.00</text> </observationRange> </ referenceRange> </observation> </component> < component> <observation moodCode="EVN" classCode=" OBS"> <templateId root="2.16.840.1.177713.10.20.22.4.2&quot ; /> <id nullFlavor="NA" /> <code codeSystem="local" code="RDW" displayName="RED CELL DISTRIBUTION WIDTH" /> <statusCode code="completed&quot ; /> <effectiveTime value="548025328784" /> <value unit="%" xsi:type="PQ" value="12.8& quot; /> <referenceRange> <observationRange> <text>11.0-15.6</text> </observationRange> </referenceRange> </observation> </ component> <component> <observation moodCode="EVN& quot; classCode="OBS"> <templateId root=" 2.16.840.1.157192.10.20.22.4.2" /> <id nullFlavor="NA& quot; /> <code codeSystem="local" code="WBC" displayName="WHITE BLOOD CELL" /> <statusCode code=& quot;completed" /> <effectiveTime value="144761801160" /& gt; <value unit="k/cumm"xsi:type="PQ" value=& quot;8.6" /> <referenceRange> < observationRange> <text>5.0-10.0</text> & lt;/observationRange> </referenceRange> </ observation> </component> <component> < observation moodCode="EVN" classCode="OBS"> < templateId root="2.16.840.1.109365.10.20.22.4.2" /> < id nullFlavor="NA" /> <code codeSystem="local&quot ; code="HGBT" displayName="HEMOGLOBIN" /> < statusCode code="completed" /> <effectiveTime value=& quot;504039682571" /> <value unit="gm/dL" xsi:type ="PQ" value="11.7" /> <interpretationCode codeSystem="local" code="*" /> < referenceRange> <observationRange> <text> 12.0-16.0</text> </observationRange> </ referenceRange> </observation> </component> < component> <observationmoodCode="EVN" classCode="OBS "> <templateId root="2.16.840.1.417032.10.20.22.4.2& quot; /> <id nullFlavor="NA" /> <code codeSystem="local" code="HCTT" displayName="HEMATOCRIT& quot; /> <statusCode code="completed" /> & lt;effectiveTime value="946773743116" /> <value unit=& quot;%" xsi:type="PQ" value="35.7"/> <interpretationCode codeSystem="local" code="*" />& lt;referenceRange> <observationRange> <text& gt;37.0-47.0</text> </observationRange> </ referenceRange> </observation> </component> < component> <observation moodCode="EVN" classCode=" OBS"> <templateId root="2.16.840.1.417495.10.20.22.4.2& quot; /> <id nullFlavor="NA" /> <code codeSystem="local" code="PLT" displayName="PLATELET COUNT" /> <statusCode code="completed" /> <effectiveTime value="881223821763" /> <value unit="k/cumm" xsi:type="PQ" value="175" /> <referenceRange> <observationRange> & lt;text>150-400</text> </observationRange> </ referenceRange> </observation> </component> </ organizer> </entry> <entry> <organizer moodCode="EVN " classCode="BATTERY"> <templateId root=" 2.16.840.1.719765.10.20.22.4.1" /> <id nullFlavor="NA&quot ; /> <code codeSystem="local" code="METABC" displayName="METABOLIC PANEL, COMPREHN" /> <statusCode code ="completed" /> <component> <observation moodCode="EVN"classCode="OBS"> <templateId root="2.16.840.1.195017.10.20.22.4.2" /> <id nullFlavor ="NA" /> <code codeSystem="local" code=" K" displayName="POTASSIUM" /> <statusCode code=& quot;completed" /> <effectiveTime value="134398522130& quot; /> <value unit="mmol/L" xsi:type="PQ" value="4.0" /> <referenceRange> < observationRange> <text>3.5-5.3</text> & lt;/observationRange> </referenceRange> </ observation> </component> <component> < observation moodCode="EVN" classCode="OBS"> < templateId root="2.16.840.1.968801.10.20.22.4.2" /> < idnullFlavor="NA" /> <code codeSystem="local&quot ; code="eGFR"displayName="EST GFR (MDRD)" /> &lt ;statusCode code="completed" /> <effectiveTime value=& quot;843158403977" /> <value unit="mL/min" xsi: type="PQ" value="> 60" /> < referenceRange> <observationRange> <text>& amp;gt; 59</text> </observationRange> </ referenceRange> </observation> </component> < component> <observation moodCode="EVN" classCode=" OBS"> <templateId root="2.16.840.1.186023.10.20.22.4.2& quot; /> <id nullFlavor="NA" /> <code codeSystem="local" code="GAP" displayName="ANION GAP& quot; /> <statusCode code="completed" /> < effectiveTime value="815247537622" /> <value unit=&quot ;mmol/L" xsi:type="PQ" value="9" /> < referenceRange> <observationRange> <text> 5-15</text> </observationRange> </referenceRange&gt ; </observation> </component> <component> <observation moodCode="EVN" classCode="OBS"> <templateId root="2.16.840.1.149998.10.20.22.4.2" /> <id nullFlavor="NA" /> <code codeSystem=" local" code="eCrCl" displayName="EST CrCl (CG)" /> <statusCode code="completed" /> < effectiveTime value="566234442301" /> <value unit=&quot ;mL/min" xsi:type="PQ" value="> 60" /> <referenceRange> <observationRange> < text>> 59</text> </observationRange></ referenceRange> </observation> </component> < component> <observation moodCode="EVN" classCode="OBS& quot;> <templateId root="2.16.840.1.241442.10.20.22.4.2&quot ; /> <id nullFlavor="NA" /> <code codeSystem="local" code="GLU" displayName="GLUCOSE&quot ; /> <statusCode code="completed" /> < effectiveTime value="714165683566" /> <value unit=&quot ;mg/dL" xsi:type="PQ" value="114" /> < interpretationCode codeSystem="local" code="*" /> <referenceRange> <observationRange> < text>70-99</text> </observationRange> </ referenceRange> </observation> </component> < component> <observation moodCode="EVN" classCode=" OBS"> <templateId root="2.16.840.1.989432.10.20.22.4.2& quot; /> <id nullFlavor="NA" /> <code codeSystem="local" code="CA" displayName="CALCIUM&quot ; /> <statusCode code="completed" /> < effectiveTime value="844228649853" /> <value unit=&quot ;mg/dL" xsi:type="PQ" value="8.5" /> < referenceRange> <observationRange> <text> 8.5-10.1</text> </observationRange> </referenceRange&gt ; </observation> </component> <component> <observation moodCode="EVN" classCode="OBS"> <templateId root="2.16.840.1.408099.10.20.22.4.2" /> <id nullFlavor="NA" /> <code codeSystem=" local" code="BUN" displayName="BLOOD UREA NITROGEN" /& gt; <statusCode code="completed" /> < effectiveTime value="145217800251" /> <value unit=&quot ;mg/dL" xsi:type="PQ" value="17" /> < referenceRange> <observationRange> <text>7-20& lt;/text> </observationRange> </referenceRange& gt; </observation> </component><component> <observation moodCode="EVN" classCode="OBS"> < templateId root="2.16.840.1.923574.10.20.22.4.2" /> < id nullFlavor="NA" /> <code codeSystem="local&quot ; code="CREAT" displayName="CREATININE" /> < statusCode code="completed" /> <effectiveTime value=& quot;441951304680" /> <value unit="mg/dL" xsi:type ="PQ" value="0.6" /> <referenceRange> <observationRange> <text>0.6-1.0</text> </observationRange> </referenceRange> </ observation> </component> <component> < observation moodCode="EVN" classCode="OBS"> < templateIdroot="2.16.840.1.309622.10.20.22.4.2" /> <id nullFlavor="NA" /> <code codeSystem="local" code="NA" displayName="SODIUM" /> < statusCode code="completed" /> <effectiveTime value=& quot;415885007528" /> <value unit="mmol/L" xsi: type="PQ" value="130" /> <interpretationCode codeSystem="local" code="*" /> < referenceRange> <observationRange> <text> 135-148</text> </observationRange> </ referenceRange> </observation> </component> < component> <observation moodCode="EVN" classCode=" OBS"> <templateId root="2.16.840.1.512691.10.20.22.4.2& quot; /> <id nullFlavor="NA" /> <code codeSystem="local" code="CL" displayName="CHLORIDE&quot ; /> <statusCode code="completed" /> < effectiveTime value="293427182920" /> <value unit=&quot ;mmol/L" xsi:type="PQ" value="96" /> < interpretationCode codeSystem="local" code="*" /> <referenceRange> <observationRange> <text& gt;98-110</text> </observationRange> </ referenceRange> </observation> </component> < component> <observation moodCode="EVN" classCode=" OBS"> <templateId root="2.16.840.1.475026.10.20.22.4.2&quot ; /> <id nullFlavor="NA" /> <code codeSystem="local" code="AST" displayName="AST/SGOT& quot; /> <statusCode code="completed" /> & lt;effectiveTime value="791883073285" /> <value unit=& quot;Units/L" xsi:type="PQ" value="19" /> & lt;referenceRange> <observationRange> <text& gt;10-37</text> </observationRange> </ referenceRange> </observation> </component> < component> <observation moodCode="EVN" classCode="OBS& quot;> <templateId root="2.16.840.1.845004.10.20.22.4.2&quot ; /> <id nullFlavor="NA" /> <code codeSystem="local" code="ALT" displayName="ALT/SGPT& quot; /> <statusCode code="completed" /> & lt;effectiveTime value="277987364086" /> <value unit=& quot;Units/L" xsi:type="PQ" value="19" /> & lt;referenceRange> <observationRange> <text& gt;< 66</text> </observationRange> </ referenceRange> </observation> </component> < component> <observation moodCode="EVN" classCode=" OBS"> <templateId root="2.16.840.1.703563.10.20.22.4.2& quot; /> <id nullFlavor="NA" /> <code codeSystem="local" code="CO2" displayName="CARBON DIOXIDE" /> <statusCode code="completed" /> &lt ;effectiveTime value="920254006662" /> <value unit=& quot;mmol/L" xsi:type="PQ" value="25" /> & lt;referenceRange> <observationRange> <text& gt;21-32</text> </observationRange> </ referenceRange> </observation> </component> < component> <observation moodCode="EVN" classCode=" OBS"> <templateId root="2.16.840.1.785275.10.20.22.4.2& quot; /> <id nullFlavor="NA" /> <code codeSystem="local" code="TP" displayName="TOTAL PROTEIN " /> <statusCode code="completed" /> & lt;effectiveTime value="771356922602" /><value unit="gm/dL& quot; xsi:type="PQ" value="7.0" /> < referenceRange> <observationRange> <text> 6.4-8.2</text> </observationRange> </ referenceRange> </observation> </component> < component> <observation moodCode="EVN" classCode=" OBS"> <templateId root="2.16.840.1.605833.10.20.22.4.2& quot; /> <id nullFlavor="NA" /> <code codeSystem="local" code="ALB" displayName="ALBUMIN&quot ; /> <statusCode code="completed" /> < effectiveTime value="110332556284" /> <value unit=&quot ;gm/dL" xsi:type="PQ" value="3.4" /> < referenceRange> <observationRange> <text>3.4-5.0& lt;/text> </observationRange> </referenceRange& gt; </observation> </component> <component> <observation moodCode="EVN" classCode="OBS"> <templateId root="2.16.840.1.651323.10.20.22.4.2" /> & lt;id nullFlavor="NA" /> <code codeSystem="local& quot; code="BILTOT" displayName="BILI TOTAL" /> <statusCode code="completed" /> <effectiveTime value ="225510242319" /> <value unit="mg/dL" xsi: type="PQ" value="0.5" /> <referenceRange> <observationRange> <text>0.0-1.0</text& gt; </observationRange> </referenceRange> </ observation> </component> <component> < observation moodCode="EVN" classCode="OBS"> < templateIdroot="2.16.840.1.815818.10.20.22.4.2" /> <id nullFlavor="NA" /> <code codeSystem="local" code="ALKP" displayName="ALKALINE PHOSPHATASE TOTAL" /> <statusCode code="completed" /> < effectiveTime value="758999486693" /> <value unit=&quot ;IU/L" xsi:type="PQ" value="69" /> < referenceRange> <observationRange> <text> 45-117</text> </observationRange> </ referenceRange> </observation> </component> </ organizer> </entry> <entry> <organizer moodCode="EVN " classCode="BATTERY"> <templateId root=" 2.16.840.1.404368.10.20.22.4.1" /> <id nullFlavor="NA&quot ; /> <code codeSystem="local" code="CBCD" displayName="CBCW/DIFF" /> <statusCode code="completed " /> <component> <observation moodCode="EVN" classCode="OBS"> <templateId root=" 2.16.840.1.068506.10.20.22.4.2" /> <id nullFlavor="NA& quot; /> <code codeSystem="local" code="GR#" displayName="GRANULOCYTE #" /> <statusCode code=" completed" /> <effectiveTime value="169113076146" /> <value unit="k/cumm" xsi:type="PQ" value=& quot;9.5" /> <interpretationCode codeSystem="local&quot ; code="*"/> <referenceRange> < observationRange> <text>2.0-9.0</text> & lt;/observationRange> </referenceRange> </ observation> </component> <component> < observation moodCode="EVN" classCode="OBS"> < templateId root="2.16.840.1.044191.10.20.22.4.2" /> < id nullFlavor="NA" /> <code codeSystem="local&quot ; code="GR%" displayName="GRANULOCYTE %" /& gt;<statusCode code="completed" /> <effectiveTime value="741675218639" /> <value unit="%& quot; xsi:type="PQ" value="84" /> < interpretationCode codeSystem="local" code="*" /> < referenceRange> <observationRange> <text> 50-75</text> </observationRange> </ referenceRange> </observation> </component> < component> <observation moodCode="EVN" classCode=" OBS"> <templateId root="2.16.840.1.118473.10.20.22.4.2& quot; /> <id nullFlavor="NA" /> <code codeSystem="local" code="LY#" displayName="LYMPHOCYTE # " /> <statusCode code="completed" /> & lt;effectiveTime value="[id number]" /> <value unit=& quot;k/cumm" xsi:type="PQ" value="1.0" /> & lt;referenceRange> <observationRange> <text& gt;1.0-4.0</text> </observationRange> </ referenceRange> </observation> </component> < component> <observation moodCode="EVN" classCode=" OBS"> <templateId root="[id number]& quot; /> <id nullFlavor="NA" /> <code codeSystem="local" code="LY%" displayName=" LYMPHOCYTE %" /> <statusCode code="completed& quot; /> <effectiveTime value="[id number]" /> <value unit="%" xsi:type="PQ" value="9 " /> <interpretationCode codeSystem="local" code=& quot;*" /> <referenceRange> < observationRange> <text>20-30</text> < /observationRange> </referenceRange> </observation& gt; </component> <component> <observation moodCode="EVN" classCode="OBS"> <templateId root="[id number].2" /> <id nullFlavor ="NA" /> <code codeSystem="local" code=" MCH" displayName="MEAN CELL HGB" /> <statusCode code="completed" /> <effectiveTime value=" [id number]" /> <value unit="pg" xsi:type=" PQ" value="30.5" /> <referenceRange> <observationRange> <text>27.0-33.0</text> </observationRange> </referenceRange> </ observation> </component> <component><observation moodCode="EVN" classCode="OBS"> <templateId root="[id number]2.4.2" /> <id nullFlavor ="NA" /> <code codeSystem="local" code="MCHC& quot; displayName="MEAN CELL HGB CONCENTRATION" /> < statusCode code="completed" /> <effectiveTime value=& quot;572488636727" /> <value unit="g/dL" xsi:type= "PQ" value="34.2" /> <referenceRange> <observationRange> <text>32.0-37.0</text&gt ; </observationRange> </referenceRange> & lt;/observation> </component> <component> < observation moodCode="EVN" classCode="OBS"> < templateId root="[id number]2.4.2" /> < id nullFlavor="NA" /> <code codeSystem="local" code= "MCV" displayName="MEAN CELL VOLUME" /> < statusCode code="completed" /> <effectiveTime value=& quot;418450000944" /> <value unit="fl" xsi:type=& quot;PQ" value="89.0" /> <referenceRange> <observationRange> <text>80.0-100.0</text&gt ; </observationRange> </referenceRange> & lt;/observation> </component> <component> < observation moodCode="EVN" classCode="OBS"> < templateId root="2.16.840.1.328307.10.20.22.4.2" /> < id nullFlavor="NA" /> <code codeSystem="local&quot ; code="MO#" displayName="MONOCYTE #" /> < statusCode code="completed" /> <effectiveTime value=& quot;029581905942" /> <value unit="k/cumm" xsi: type="PQ" value="0.7" /> <referenceRange> <observationRange> <text>0.1-1.0</text& gt; </observationRange> </referenceRange> </observation> </component> <component> &lt ;observation moodCode="EVN" classCode="OBS"> &lt ;templateId root="2.16.840.1.610235.10.20.22.4.2" /> < id nullFlavor="NA" /> <code codeSystem="local&quot ; code="MO%" displayName="MONOCYTE %" /> <statusCode code="completed" /> < effectiveTime value="433712172657" /> <value unit=&quot ;%" xsi:type="PQ" value="6" /> < referenceRange> <observationRange> <text> 4-6</text> </observationRange> </ referenceRange> </observation> </component> < component> <observation moodCode="EVN" classCode=" OBS"> <templateId root="2.16.840.1.513373.10.20.22.4.2& quot;/> <id nullFlavor="NA" /> <code codeSystem="local"code="RBC" displayName="RED BLOOD CELL" /> <statusCode code="completed" /> <effectiveTime value="115152638168" /> <value unit="m/cumm" xsi:type="PQ" value="4.20" /> <referenceRange> <observationRange> & lt;text>4.00-6.00</text> </observationRange> </ referenceRange> </observation> </component> < component> <observation moodCode="EVN" classCode=" OBS"> <templateId root="2.16.840.1.232967.10.20.22.4.2& quot; /> <id nullFlavor="NA" /> <code codeSystem ="local" code="RDW" displayName="RED CELL DISTRIBUTION WIDTH" /> <statusCode code="completed" /> <effectiveTime value="226310427602" /> <value unit="%" xsi:type="PQ" value="12.2" /> <referenceRange> <observationRange> <text>11.0-15.6</text> </observationRange> </referenceRange> </observation></component> &lt ;component> <observation moodCode="EVN" classCode=" OBS"> <templateId root="2.16.840.1.341240.10..22.4.2& quot; /> <id nullFlavor="NA" /> <code codeSystem="local" code="WBC" displayName="WHITE BLOOD CELL" /> <statusCode code="completed" /> <effectiveTime value="079830222677" /> <value unit="k/cumm" xsi:type="PQ" value="11.2" /> <interpretationCode codeSystem="local" code="*" /& gt; <referenceRange><observationRange> < text>5.0-10.0</text> </observationRange> < /referenceRange> </observation> </component> &lt ;component> <observation moodCode="EVN" classCode=" OBS"> <templateId root="2.16.840.1.824127.10.20.22.4.2" /& gt; <id nullFlavor="NA" /> <code codeSystem ="local" code="HGBT" displayName="HEMOGLOBIN" /&gt ; <statusCode code="completed" /> < effectiveTime value="567153842927" /> <value unit=&quot ;gm/dL" xsi:type="PQ" value="12.8" /> < referenceRange> <observationRange> <text> 12.0-16.0</text> </observationRange></referenceRange& gt; </observation> </component> <component> <observation moodCode="EVN" classCode="OBS"> <templateId root="2.16.840.1.592331.10.20.22.4.2" /> <id nullFlavor="NA" /> <code codeSystem=" local" code="HCTT" displayName="HEMATOCRIT" /> <statusCode code="completed" /> <effectiveTime value="918238437231" /> <value unit="%& quot; xsi:type="PQ" value="37.4" /> < referenceRange> <observationRange> <text>37.0- 47.0</text> </observationRange> </ referenceRange> </observation> </component> < component> <observation moodCode="EVN" classCode=" OBS"> <templateId root="2.16.840.1.546006.10.20.22.4.2& quot; /> <id nullFlavor="NA" /> <code codeSystem="local" code="PLT" displayName="PLATELET COUNT" /> <statusCode code="completed" /> <effectiveTime value="488550944204" /> <value unit="k/cumm" xsi:type="PQ" value="206" /> <referenceRange> <observationRange> & lt;text>150-400</text> </observationRange> & lt;/referenceRange> </observation> </component> </ organizer> </entry></section> Encounters ACCT No. Visit Discharge Status Pt. Type Provider Facility Loc./Unit Complaint Date/Time [id number] 05/31/2013 05/31/2013 [facility] Outpatient 08:39:00 23:59:59 [id number] 05/24/2013 05/24/2013 CLS Outpatient 08:23:00 23:59:59 [id number] 05/16/2013 05/16/2013 CLS Outpatient 09:00:00 23:59:59 [id number] 04/06/2013 04/06/2013 CLS Outpatient 06:15:00 23:59:59 [id number] 03/23/2013 03/23/2013 CLS Outpatient 10:17:00 23:59:59 [id number] 02/07/2013 02/07/2013 CLS Outpatient 19:42:00 23:59:59 [id number] 12/29/2015 12/29/2015 DIS Emergency Vijay LemusEDS 550 03:16:00 08:01:00 [facility] [id number] 08/20/2014 08/23/2014 DIS Inpatient Tri DELATORRE, Sina Lemus9TN 654 09:00:00 17:59:00 [facility] [id number] 08/13/2014 08/13/2014 DIS Outpatient Sina Bartlett MDPOA 110 08:35:00 08:35:00 [facility]
--- OUTSIDE RECORDS SUMMARY | 2017-04-13 11:09 | External Medical Summary | Referral Summary ---
:1940 Author Organization [facility] Address [address] [place] [address] Care Team Providers Name Role Phone Yaya Lizarraga Primary Care Physician Encounter VC Date(s): 05/17/15 - 05/17/15 [facility] [address] [place] [address]- [place] Discharge Diagnosis: Osteoarthritis of both knees Discharge Diagnosis: Urinary incontinence Discharge Diagnosis: Hypertension Discharge Diagnosis: Hyperlipidemia. Discharge Disposition: 01-Home or Self Care Attending Physician: Yaya Lizarraga MD Admitting Physician: Yaya Lizarraga MD Referring Physician: Yaya Lizarraga MD Vital Signs Most recent to oldest [Reference Range]: 1 Peripheral Pulse Rate [60-100 bpm] 80 bpm (05/17/15 2:30 PM) Blood Pressure [90-140/60-90 mmHg] 124/72 mmHg (05/17/15 2:30 PM) Problem List Condition Effective Dates Status [...] Active Trigeminal neuralgia(Confirmed) Active Vertigo(Confirmed) Active 1Bladder hasfx1A Lumpectomy Allergies, Adverse Reactions, Alerts Substance Reaction Severity Status amoxicillin diarrhea Active amoxicillin-clavulanate diarrhea Active meloxicam DIARRHEA Active Medications Aleve 220 mg, Oral, BID, 0 Refill(s) Start Date: 05/08/14 Status: Orderedatenolol 25 mg oral tablet See Instructions, 1 TABS ORAL BEDTIME (ONCE A DAY), # 90 tabs, 3 Refill(s), eRx : [facility] [id number], 1 TABS ORAL BEDTIME (ONCE A DAY) [...] of Tubular adenomas. Repeat in 5 years.3Urinary ejlngpkdcbyk5Inrsfz Cancer Social History Social History Type Response Smoking Status Never smoker Assessment and Plan Extracted from: Title: Office Visit Note Author: Yaya Lizarraga MD Date: 05/17/15 Assessment/Plan Hyperlipidemia. She'll return for fasting lipid profile and I'll let her know the results. Ordered: Comprehensive Metabolic Panel Lipid Panel Office Visit Level 5 Est 83385 Return to Clinic Hypertension Blood pressure is well-controlled continue same meds and I'll update lab in this regard and let her know the results. Ordered: pneumococcal 13-valent conjugate vaccine, 0.5 mL, IntraMuscular, Once, First Dose: 05/17/15 16:00:00 COOKER HELPER, Stop Date: 05/17/15 16:00:00 COOKER HELPER, Form: Injection CBC w/ Differential Comprehensive Metabolic Panel Office Visit Level 5 Est 39340 Return to Clinic Osteoarthritis of both knees The osteoarthritis of the knees is stable the left knee after replacement is doing well. She wants to wait on the right knee. Ordered: Office Visit Level 5 Est 75609 Urinary incontinence Urinary incontinence problem stable and she is living with this. She doesn't want to update a bone densityexam. She'll schedule mammograms in July. Were giving her the Prevnar 13 vaccine today. Follow her lab looks okay I'll see her back in one year or as needed. I'll also have her return in a few weeks for an ear flush and I gave her written instructions regarding the use of the proximal. I did accomplish a comprehensive annual history and physical exam today. Ordered: Comprehensive Metabolic Panel Office Visit Level 5 Est 06368 Orders: BD Bone Density DEXA Axial Skeleton Referrals to Other Providers Referred by: Yaya Lizarraga MD
--- OUTSIDE RECORDS SUMMARY | 2017-04-13 11:09 | External Medical Summary | Referral Summary ---
:1940 Author Organization [facility] Address [address] [place] [address] Care Team Providers Name Role Phone Yaya Lizarraga Primary Care Physician Encounter VC Date(s): 04/17/16 - 04/17/16 [facility] [address] [address] [place] [address]- [place] Discharge Diagnosis: Right knee pain Discharge Disposition: 01-Home or Self Care Attending Physician: Little Meza APRN Admitting Physician: Little Meza APRN Vital Signs Most recent to oldest [Reference Range]: 1 Respiratory Rate [14-20 br/min] 18 br/min (04/17/16 1:19 PM) Problem List Condition Effective Dates Status [...] Active Trigeminal neuralgia(Confirmed) Active Vertigo(Confirmed) Active 1Bladder [id number] Lumpectomy Allergies, Adverse Reactions, Alerts Substance Reaction Severity Status amoxicillin diarrhea Active amoxicillin-clavulanate diarrhea Active meloxicam DIARRHEA Active Medications Aleve 220 mg, Oral, BID, 0 Refill(s) Start Date: 05/08/14 Status: Orderedatenolol 25 mg oral tablet See Instructions, TAKE 1 TABLET BY MOUTH AT BEDTIME, # 90 tabs, 3 Refill(s), eRx : [id number], TAKE 1 TABLET BY MOUTH AT BEDTIME Start Date: 02/17/16 Status: OrderedCalcium 600+D 2 tabs, Oral, Daily, 0 Refill(s) Start Date: 05/08/14 Status: OrderedCipro 500 mg oral tablet 500 mg 1 tabs, Oral, q24hr, # 30 tabs, 0 Refill(s), Pharmacy: [id number], 1 tabs Oral q24hr Start Date: 03/31/16 Status: OrderedEstrace Vaginal 0.1 mg/g vaginal cream 1 g, Vaginal, 3x/Wk, # 42.5 g, 0 Refill(s), Pharmacy: [id number] Start Date: 03/18/16 Status: OrderedFosamax 70 mg oral tablet 70 mg 1 tabs, Oral, qWeek, # 12 tabs, 4 Refill(s), Pharmacy: [id number], 1 tabs OralqWeek Start Date: 06/17/15 Status: [...] Body Site Arthrocentesis, aspiration and/or injection, major 04/17/16 joint or bursa (eg, shoulder, hip, knee, subacromial bursa); without ultrasound guidance L TKA [facility]1 08/20/14 Colonoscopy abnormal2 04/15/11 [facility] - Total abdominal hysterectomy and 1996 bilateral salpingo-oophorectomy Bladder Sling3 L Lumpectomy4 Sacral Colpopexy 1715.36 OA GLOBAL ENDS 11/18/20142Last done in 2011 and Hyperplastic polyps removed. Has Hx of Tubular adenomas. Repeat in 5 years.3Urinary hwzhfozuchex8Dxdobj Cancer Social History Social History Type Response Smoking Status Never smoker Assessment and Plan Extracted from: Title: Office Visit Note Author: Little Meza OPTICAL WORKER Date: 04/17/16 Assessment/Plan Right knee pain At this time patient would like to continue doing the steroid injections. A consent form was signed. All questions were answered in clinic at this time. My card was given to the patient and told to call if she has any questions or concerns. Procedure note: After written informed consent was obtained forright knee intra-articular steroid injections, the patient was placed in a sitting position. Injection site was cleaned with three Betadine swabs. 3 m L of one percent plain lidocaine was injected using a 25-gauge needle into the anterolateral knee injection site. After this local had set up, a mixture of 80mg of Kenalog and 3 mL of half percent plain Bupivacaine was injected using a 20-gauge spinal needle into the intra- articular knee space. Sterile technique was used throughout the procedure. The injection site was cleaned with alcohol and a Band- Aid was applied. The patient tolerated the procedure without difficulty. The patient was advised to contact our office if the knee injections do not bring some relief. Ordered: bupivacaine, 5 mL, IntraARTICULAR , Once, First Dose: 04/17/16 16:00:00 LUMBER CHAIN OFFBEARER , Stop Date: 04/17/16 16:00:00 LUMBER CHAIN OFFBEARER, [facility] [id number], Form: Injection triamcinolone, 80 mg, IntraARTICULAR , Once, First Dose: 04/17/16 16:00:00 LUMBER CHAIN OFFBEARER, Stop Date: 04/17/16 16:00:00 LUMBER CHAIN OFFBEARER Arthro/Asp Major Joint Inj (Shoulder, Hip, Knee) 54518 Office Visit Level 2 Est 33818
--- NOTE | 2017-04-13 14:33 | History & Physical Report ---
History of Present Illness Date: 04/13/17 Chief complaint: acute psychosis with delerium and paranoia HPI: Yulissa Patrick is a pleasant 76-year-old female who presented to [facility] today, , for medical clearance and possible admission to [facility]. , daughter and son-in-law are present on exam and contribute to the patient's history as she is poor historian given her tangential and disorganized thoughts and confusion. Family reports that in February 2017 she started to experience confusion with apparent delirium which was initially believed to be secondary to taking Benadryl to assist with insomnia. She was encouraged to increase her fluid intake to help "flush out" the Benadryl from her system. It is reported that, on Wednesday03/15/17, she began vomiting while at home. Around 0 that evening, family witnessed her having a seizure and then became unresponsive requiring family to administer CPR briefly. She was taken to [facility] in [place] and found to be hyponatremic with a sodium of 111. Her hyponatremia was corrected and by 03/17/17, family reports that she was back to her baseline, ambulating freely without assistance and without confusion or delirium. She was discharged home on 03/17/17 and on 03/18/17 she started to have increased confusion with insomnia and manic like behaviors. She was given Xanax and Haldol for her symptoms which reportedly increased her restlessness and agitation. Her symptoms continued to progress and on she pushed out a window screen at home in an attempt to try and "escape" as she believed that her was having and affair and was going to kill her. [facility] 03[facility]17 for psychiatric evaluation and treatment. Family reports that she may have improved slightly during her hospitalization at [facility] and was discharged back home on . Since her discharge home, she has had progressive insomnia, increased restlessness, increased confusion with agitation and paranoia. Family states that she has only slept about 2-3 hours in the past 36 hours and has been talking non-stop with tangential thoughts. Family was directed to [facility] for further evaluation. Upon arrival to the ED on 04/13/17, she was noted to be tachycardic at 105 with hypertension (BP 162/79). Family reports she has a known history of hypertension, though patient reports that she is "perfect". Labs were obtained and were unremarkable. TSH was stable at 1.37. UA revealed 10-20 WBC with >50 squamous epithelial cells and 2+ bacteria concerning to be a contaminated sample. UA culture pending. She has a history of bladder retention and self catheterizes twice a day due to residual urine post-void. CXR revealed no acute intracranial abnormalities. EKG revealed sinus tachycardia with a rate of 103. Due to her agitation and restlessness, she was given Ativan 1mg IM in the ED without improvement. Due to her acute psychosis with delirium and paranoia, she was admitted to [facility] unit for further psychiatric evaluation and treatment. The hospitalist service was consulted for medical management. Review of Systems All systems PM: 10-point ROS was reviewed, no additional remarkable complaints except - Constitutional Constitutional: Absent: chills, fatigue, fever(s), lethargy, weakness - EENMT Eyes: Absent: diplopia, photophobia Ears: Absent: ear pain Balance: Absent: falling to one side Nose: Absent: nosebleeds Mouth/Throat: Present: dry mouth. Absent: sore throat, changes in swallowing - Cardiovascular Cardiovascular: Present: edema, heart murmur. Absent: chest pain, palpitations , syncope, dyspnea on exertion, orthopnea Vascular: Present: pedal edema, varicosities. Absent: pallor of an extermity - Respiratory Respiratory: Present: pain on inspiration (secondary to recent CPR). Absent: cough, dyspnea, hemoptysis, dyspnea on exertion, wheezing, chest congestion, excessive phlegm production - Gastrointestinal Gastrointestinal: Present: constipation. Absent: abdominal pain, diarrhea, melena, nausea, vomiting - Genitourinary Genitourinary: Absent: dysuria, flank pain, hematuria Menstruation: post hysterectomy - Musculoskeletal Musculoskeletal: Absent: back pain, deformity, limited range of motion, muscle weakness - Integumentary/Breasts Integumentary: Absent: erythema, lesions, rash - Neurological Neurological: Present: confusion, tremor(s). Absent: abnormal movements, convulsions, dizziness, focal weakness, headache(s), weakness - Psychiatric Psychiatric: Present: abnormal sleep pattern, behavioral changes, difficulty concentrating, paranoia - Endocrine Endocrine: Present: polyphagia. Absent: palpitations, polydipsia - Hematologic/Lymphatic Hematologic/Lymphatic: Absent: easy bruising - Allergic/Immunologic Allergic/Immunologic: Absent: seasonal rhinorrhea Past Medical History Hypertension. Mitral valve prolapse. Tricuspid valve prolapse. Constipation. Urinary retention requiring self straight cancerization twice a day. History of breast cancer with lumpectomy, chemotherapy and radiation - 2002. History of seizure secondary to hyponatremia - 03/15/17. History of UTI. Surgical History: Hysterectomy. Lumpectomy for breast cancer - ~2002. Left knee replacement. Bladder repair with sling. Family History Updates: Unable to obtain due to patient's current confusion and psychosis. - Social History Smoking status: Never smoker Substance use type: does not use Alcohol intake frequency: does not drink Housing: house Household members: spouse (Bill) Current occupational status: retired Does patient use chewing tobacco?: No Current residence: Apartment/Private Home Social history: PCP - Dr. Lizarraga. Medications Home Medications Medication Instructions Recorded Confirmed Type Acetaminophen [Acetaminophen Extra 1,000 mg PO PRN PRN 04/13/17 04/13/17 History Strength] Metoprolol Tartrate [Lopressor] 25 mg PO BID 04/13/17 04/13/17 History Quetiapine [Seroquel] 100 mg PO HS 04/13/17 04/13/17 History Temazepam [Restoril] 15 mg PO HS PRN 04/13/17 04/13/17 History Temazepam [Restoril] 30 mg PO HS 04/13/17 04/13/17 History Allergies Allergy/AdvReac Type Severity Reaction Status Date / Time clindamycin Allergy Verified 04/13/17 10:51 haloperidol [From Haldol] Allergy Restlessnes Verified 04/13/17 10:51 s nitrofurantoin Allergy Verified 04/13/17 10:51 [From Macrobid] Exam Vital Signs: Temperature 97.5 F 04/13/17 10:34 Pulse Rate 105 H 04/13/17 10:34 Respiratory Rate 20 04/13/17 10:34 Blood Pressure 162/79 H 04/13/17 10:34 Pulse Oximetry 97 04/13/17 10:34 Comments: Patient is sitting in bed with family at the bedside, actively, aggressively eating a sandwich and requesting more food. Talks continually throughout exam with disorganized thoughts and tangential. - Constitutional Present: no acute distress, well nourished, well developed, cooperative Comments: hyperactive and talkative on exam; manic like behaviors. - Routine HEENT Exam Head: Present: normocephalic, atraumatic. Absent: abrasion, laceration, hematoma Eye: Present: PERRL. Absent: conjunctival icterus ENT: Present: mucous membranes moist, oropharynx clear - Routine Neck Exam Present: supple, full ROM, trachea midline. Absent: tenderness - Routine Chest/Breast/Axilla Exam Chest wall: Absent: pacemaker Comments: mild tenderness to left lateral chest and anterior chest with palpation and deep breathing after CPR on 03/15/17. CXR stable today. - Routine Respiratory Exam Present: CTA bilaterally. Absent: dyspnea, prolonged expiratory phase, rales, respiratory distress, rhonchi, stridor, wheezes, crackles Comments: mild pleuritic chest pain with deep breathing; no cough or respiratory distress ; no conversational dyspnea. - Routine Cardiovascular Exam Present: S1, S2, murmur, tachycardia - Routine Abdominal Exam Present: soft, normoactive bowel sounds, non tender, distended (mild). Absent: rebound, guarding - Routine Extremities Exam Present: edema (2+ bilateral lower extremities; L>R.) - Routine Back/Spine/Pelvis Exam Back/Spine: Present: full ROM. Absent: vertebral tenderness - Routine Skin Exam Present: intact, dry, warm. Absent: jaundice Comments: afebrile. - Routine Neurological Exam Present: alert (orientated to person and place, not time.), moving all extremities, hearing grossly intact, normal speech, tremors (resting on right). Absent: facial asymmetry - Routine Psychiatric Exam Present: cooperative, anxious, manic Comments: tangential and disorganized thoughts with flight of ideas. Results - Labs CBC & Chem 7: 04/13/17 11:40 04/13/17 11:40 - Imaging and Cardiology Chest x-ray Status: image reviewed by me Additional comments: Date of Exam: 04/13/17 Type of Exam(s): XR chest 1V Reason for Exam(s): cardiac evaluation FINDINGS: The lungs are clear. There is no abnormal airspace opacity, pleural effusion or pneumothorax identified. The heart size, pulmonary vasculature and mediastinum are within normal limits. Mild scoliosis and degenerative change in the spine IMPRESSION: No acute cardiopulmonary abnormality. Assessment and Plan (1) Acute psychosis Current visit: Yes Status: Acute (2) Dementia with behavioral disturbance Current visit: Yes Status: Acute Assessment and Plan: Assessment Acute psychosis with restless and paranoia. Dementia with acute behavioral disturbance. Hypertension. Mitral valve and tricuspid valve prolapse. Constipation. Urinary retention requiring self straight cancerization twice a day. History of breast cancer with lumpectomy, chemotherapy and radiation - 2002. History of seizure secondary to hyponatremia - 03/15/17. History of UTI. Plan - 04/13/17 Acute psychosis with restless and paranoia and dementia with acute behavioral disturbance. - Agree with admission to [facility] for further psychiatric evaluation and treatment by Dr. Ellison. Hospitalist service consulted for medical management. - Provide safe and supportive environment. - Labs obtained in ED prior to admission were unremarkable. Will monitor periodically throughout admission. - History of hyponatremia with seizure on 03/15/17 resulting in acute admission at [facility] with complete resolution. - CXR on admission revealed no acute cardiopulmonary changes. - Nursing reports recent fall [facility]. Consider CT head for further evaluation of acute behavioral changes in light of possible head injury as well as history of breast CA. - Family reports increased behaviors and agitation with Haldol and Xanax. PRN medications per Dr. Ellison. - Monitor closely as she is a high elopement risk. Hypertension with mitral valve and tricuspid valve prolapse. - Elevated blood pressure noted on admission (162/79). Monitor blood pressure closely. - Metoprolol 25mg BID initiated during acute hospitalization in [place] from 03/15-03/17/17. Monitor heart rate closely as well. - Given multivalve prolapse and hypertension, will initiate ASA daily for CAD prophylaxis. - 2+ pedal edema noted to bilateral lower extremities. Family reports patient has PRN medication for swelling but is unsure of name of drug. Will continue to monitor edema closely as well as daily weights and respiratory function. - TREMAYNE hose and elevation as tolerated. Constipation. - Encourage bowel motivation with daily miralax and senna plus PRN. Urinary retention requiring self straight cancerization twice a day with history of UTI. - UA in ED revealed 10-20 WBC with >50 squamous epithelial cells and 2+ bacteria. Patient is afebrile, asymptomatic and normal WBC. UA culture pending. - Straight cath at 0800 and 2000 daily. Bladder scan as indicated for concerns of additional retention. - Repeat UA given concern for contamination of initial sample. History of seizure secondary to hyponatremia - 03/15/17. - History consistent with unintentional dilutional hyponatremia resulting in seizure. Monitor electrolytes closely. History of breast cancer with lumpectomy, chemotherapy and radiation - 2002. DVT Prophylaxis: TREMAYNE Webster Resuscitation Status: Full Code - Time spent with patient Time with patient PN: 70 minutes - Physician Narrative Physician: Luis Pimentel MD Narrative: Date: 04/13/17 Time: 2003 Have independently interviewed and examined pt. Chart reviewed. Case discussed with ED physician and my PA. Care plan developed with my supervision; agree with above. Admitted to [facility] secondary to deleruim and paranoia. Patient almost hyperverbal during my interview and exam. Difficult for her to stay on target. Restless, but not agitated. Patient really not able to participate in ROS. Lungs: clear bilaterally CV: regular with II/ RAQUEL at [facility] AB: soft nt MSE: awake alert. Restless. Plan: Agree with admission to [facility] for geropsychiatric evaluation and treatment. Psychiatry to manage and adjust psychoactive medications. Provide safe, supportive environment. Continue with home medications. Check on urinary culture. Patient is medically stable for [facility] floor activities. Hospital Course Summary Disclaimer: The visit summary below is not to be considered part of the above Progress Note. 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 - Agree with admission to [facility] for further psychiatric evaluation and treatment by Dr. Ellison. Hospitalist service consulted for medical management. - Provide safe and supportive environment. - Labs obtained in ED prior to admission were unremarkable. Will monitor periodically throughout admission. - History of hyponatremia with seizure on 03/15/17 resulting in acute admission at [facility] with complete resolution. - CXR on admission revealed no acute cardiopulmonary changes. - Nursing reports recent fall [facility] Consider CT head for further evaluation of acute behavioral changes in light of possible head injury as well as history of breast CA. - Family reports increased behaviors and agitation with Haldol and Xanax. PRN medications per Dr. Ellison. - Monitor closely as she is a high elopement risk. Hypertension with mitral valve and tricuspid valve prolapse. - Elevated blood pressure noted on admission (162/79). Monitor blood pressure closely. - Metoprolol 25mg BID initiated during acute hospitalization in [place] from 03/15-03/17/17. Monitor heart rate closely as well. - Given multivalve prolapse and hypertension, will initiate ASA daily for CAD prophylaxis. - 2+ pedal edema noted to bilateral lower extremities. Family reports patient has PRN medication for swelling but is unsure of name of drug. Will continue to monitor edema closely as well as daily weights and respiratory function. - TREMAYNE hose and elevation as tolerated. Constipation. - Encourage bowel motivation with daily miralax and senna plus PRN. Urinary retention requiring self straight cancerization twice a day with history of UTI. - UA in ED revealed 10-20 WBC with >50 squamous epithelial cells and 2+ bacteria. Patient is afebrile, asymptomatic and normal WBC. UA culture pending. - Straight cath at 0800 and 2000 daily. Bladder scan as indicated for concerns of additional retention. - Repeat UA given concern for contamination of initial sample. History of seizure secondary to hyponatremia - 03/15/17. - History consistent with unintentional dilutional hyponatremia resulting in seizure. Monitor electrolytes closely. History of breast cancer with lumpectomy, chemotherapy and radiation - 2002.
[2017-04-13] MEDS ORDERED: SENNA + DOCUSATE TABLET PO PRN (14:53)
[2017-04-13 15:12] VITALS: BMI 28.5
--- NOTE | 2017-04-13 16:09 | CT Scan Report ---
Indication: AMS, recent fall PROCEDURE: CT head/brain wo con: Encounter: Initial Comparison: None Technique: Axial CT images through the head were performed without contrast. Iterative Reconstruction dose reducing technique was utilized. FINDINGS: The ventricles are of normal size, shape, and configuration for the patient's age. There is no evidence of acute intracranial hemorrhage, midline displacement, or mass effect. There are scattered areas of low attenuation in the white matter which most likely represent changes of chronic microvascular ischemia. The CT attenuation of the brain parenchyma is otherwise normal within the cerebellum, brain stem, and cerebral hemispheres. The tympanic cavities and mastoid air cells are free of appreciable disease. There are no definite fractures of the skull base, calvarium, or visualized portion of the midface. IMPRESSION: No CT evidence of acute traumatic intracranial injury. .
[2017-04-13] MEDS: QUETIAPINE 100 MG TABLET PO SCH (20:24)
[2017-04-13] MEDS: TEMAZEPAM 30 MG CAPSULE PO SCH ×2 (20:24→23:55)
[2017-04-13] MEDS: MELATONIN 5 MG TABLET PO SCH (20:24)
[2017-04-14] MEDS: LORazepam 0.5 MG TABLET PO PRN (04:47)
[2017-04-14] MEDS ORDERED: BISACODYL 10 MG SUPPOSITORY RECTALLY PRN (06:25)
[2017-04-14] MEDS: ASPIRIN 325 MG TABLET PO SCH (08:07)
[2017-04-14] MEDS: POLYETHYL GLYCOL 3350 17gm PACKET PO SCH (08:07)
--- NOTE | 2017-04-14 17:14 | Progress Note ---
- Date 04/14/17 Subjective: Yulissa is seen while ambulating in the hallway with her walker. She continues to be very talkative and denies any current concerns or complaints. No chest pain, shortness of breath, abdominal pain, nausea, vomiting or dysuria. Her appetite is stable and bowels are moving. CT head was completed and was negative. Initial UA obtained in ED was concerning for contamination but is showing early growth on culture. Repeat UA revealed 5-10 WBC with trace bacteria. Patient remains afebrile. Objective Vital signs: Temperature 97.9 F 04/14/17 08:00 Pulse Rate 93 04/14/17 08:00 Respiratory Rate 20 04/14/17 08:00 Blood Pressure 141/78 H 04/14/17 08:00 Pulse Oximetry 97 04/14/17 08:00 Height/Weight/BMI: Height 5 ft 1 in Weight 150 lb 12.739 oz Body Mass Index 28.5 Comments: walking in [place] with walker. - Constitutional Present: no acute distress, well nourished, well developed, cooperative Comments: talkative - Routine HEENT Exam Head: Present: normocephalic, atraumatic Eye: Present: PERRL. Absent: conjunctival icterus ENT: Present: mucous membranes moist - Routine Respiratory Exam Present: CTA bilaterally - Routine Cardiovascular Exam Present: RRR, S1, S2 - Routine Abdominal Exam Present: soft, normoactive bowel sounds, non distended, non tender - Routine Extremities Exam Present: edema, non tender, full ROM, pulses intact - Routine Back/Spine/Pelvis Exam Back/Spine: Present: full ROM. Absent: vertebral tenderness - Routine Musculoskeletal Exam Musculoskeletal: Present: moving extremities well - Routine Skin Exam Present: dry, warm. Absent: jaundice Comments: afebrile. TREMAYNE hose on bilaterally. - Routine Neurological Exam Present: alert, moving all extremities, normal speech. Absent: facial asymmetry - Routine Lymphatic Exam Lymphatic: Present: lymphedema - Routine Psychiatric Exam Present: cooperative Comments: tangental thoughts. Results - Labs CBC & Chem 7: 04/13/17 11:40 04/13/17 11:40 Assessment and Plan (1) Dementia with behavioral disturbance Current visit: Yes Status: Acute (2) Acute psychosis Current visit: Yes Status: Acute Assessment and Plan: Assessment Acute psychosis with restless and paranoia. Dementia with acute behavioral disturbance. Hypertension. Mitral valve and tricuspid valve prolapse. Constipation. Urinary retention requiring self straight cancerization twice a day. History of breast cancer with lumpectomy, chemotherapy and radiation - 2002. History of seizure secondary to hyponatremia - 03/15/17. History of UTI. Plan - 04/14/17 Acute psychosis with restless and paranoia and dementia with acute behavioral disturbance. - Patient continues to be hyperverbal with tangental thoughts. Continue psychiatric care per Dr. Ellsion and team. - Provide safe and supportive environment. - CT head was obtained and negative for acute findings. - Family reports increased behaviors and agitation with Haldol and Xanax. PRN medications per Dr. Ellison. - Monitor closely as she is a high elopement risk. Hypertension with mitral valve and tricuspid valve prolapse. - Metoprolol 25mg BID initiated during acute hospitalization in [place] from 03/15-03/17/17. Continue to monitor heart rate and blood pressure closely. - Given multivalve prolapse and hypertension, will initiate ASA daily for CAD prophylaxis. - TREMAYNE hose and elevation as tolerated. Constipation. - Encourage bowel motivation with daily miralax and senna plus PRN. Urinary retention requiring self straight cancerization twice a day with history of UTI. - UA in ED revealed 10-20 WBC with >50 squamous epithelial cells and 2+ bacteria. Patient is afebrile, asymptomatic and normal WBC. UA culture showing early growth. Repeat UA revealed 5-10 WBC and trace bacteria. - Will initiate Keflex 500mg QID for antimicrobial coverage of urinary pathogens while awaiting culture results given persistent delirium. - Straight cath at 0800 and 2000 daily. Bladder scan as indicated for concerns of additional retention. History of seizure secondary to hyponatremia - 03/15/17. - History consistent with unintentional dilutional hyponatremia resulting in seizure. Monitor electrolytes closely. History of breast cancer with lumpectomy, chemotherapy and radiation - 2002. DVT Prophylaxis: TREMAYNE Hose Resuscitation Status: Full Code - Time spent with patient Time with patient PN: 25 minutes - Physician Narrative Physician: Luis Pimentel MD Narrative: Date: 04/14/17 Time: 1711 Hospital Course Summary Disclaimer: The visit summary below is not to be considered part of the above Progress Note. 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 - [facility] further [facility] evaluation and treatment by Dr. Ellison. Hospitalist service consulted for medical management. - Provide safe and supportive environment. - Labs obtained in ED prior to admission were unremarkable. Will monitor periodically throughout admission. - History of hyponatremia with seizure on 03/15/17 resulting in acute admission at [facility] with complete resolution. - CXR on admission revealed no acute cardiopulmonary changes. - Nursing reports recent fall during acute hospitalization at [place]. Consider CT head for further evaluation of acute behavioral changes in light of possible head injury as well as history of breast CA. - Family reports increased behaviors and agitation with Haldol and Xanax. PRN medications per Dr. Ellison. - Monitor closely as she is a high elopement risk. Hypertension with mitral valve and tricuspid valve prolapse. - Elevated blood pressure noted on admission (162/79). Monitor blood pressure closely. - Metoprolol 25mg BID initiated during acute hospitalization in [place] from 03/15-03/17/17. Monitor heart rate closely as well. - Given multivalve prolapse and hypertension, will initiate ASA daily for CAD prophylaxis. - 2+ pedal edema noted to bilateral lower extremities. Family reports patient has PRN medication for swelling but is unsure of name of drug. Will continue to monitor edema closely as well as daily weights and respiratory function. - TREMAYNE hose and elevation as tolerated. Constipation. - Encourage bowel motivation with daily miralax and senna plus PRN. Urinary retention requiring self straight cancerization twice a day with history of UTI. - UA in ED revealed 10-20 WBC with >50 squamous epithelial cells and 2+ bacteria. Patient is afebrile, asymptomatic and normal WBC. UA culture pending. - Straight cath at 0800 and 2000 daily. Bladder scan as indicated for concerns of additional retention. - Repeat UA given concern for contamination of initial sample. History of seizure secondary to hyponatremia - 03/15/17. - History consistent with unintentional dilutional hyponatremia resulting in seizure. Monitor electrolytes closely. History of breast cancer with lumpectomy, chemotherapy and radiation - 2002. Plan - 04/14/17 - Patient continues to be hyperverbal with tangental thoughts. Continue psychiatric care per Dr. Ellison and team. Provide safe and supportive environment. - CT head was obtained and negative for acute findings. - UA in ED revealed 10-20 WBC with >50 squamous epithelial cells and 2+ bacteria. Patient is afebrile, asymptomatic and normal WBC. UA culture showing early growth. Repeat UA revealed 5-10 WBC and trace bacteria. - Will initiate Keflex 500mg QID for antimicrobial coverage of urinary pathogens while awaiting culture results given persistent delirium. - Straight cath at 0800 and 2000 daily. Bladder scan as indicated for concerns of additional retention.
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
[2017-04-14] MEDS: MELATONIN 5 MG TABLET PO SCH (20:36)
[2017-04-14] MEDS: QUETIAPINE 100 MG TABLET PO SCH (20:38)
[2017-04-14] MEDS ORDERED: TEMAZEPAM 15 MG CAPSULE PO SCH (21:00)
[2017-04-15] MEDS: ACETAMINOPHEN 500 MG TABLET PO PRN (04:17)
[2017-04-15] MEDS: ASPIRIN 325 MG TABLET PO SCH (08:20)
[2017-04-15] MEDS: POLYETHYL GLYCOL 3350 17gm PACKET PO SCH (08:20)
--- NOTE | 2017-04-15 15:11 | Progress Note ---
Progress Note: Keflex DC'd as urine culture showed mixed bacterial karma consistent with contamination. No urinary sxs.
[2017-04-15] MEDS: MELATONIN 5 MG TABLET PO SCH (19:57)
[2017-04-15] MEDS: LORazepam 1 MG TABLET PO SCH (19:57)
[2017-04-15] MEDS: RAMELTEON 8 MG PO SCH (19:58)
[2017-04-15] MEDS: QUETIAPINE 100 MG TABLET PO SCH (19:59)
--- NOTE | 2017-04-15 21:49 | Neuropsych Progress Note ---
[facility] Subjective Date: 04/15/17 - Sujective/Severity of Illness Medications: Acetaminophen (Tylenol) 1,000 mg PO PRN PRN PRN Reason: Pain Last Admin: 04/15/17 04:17 Dose: 1,000 mg Aspirin (Asa) 325 mg PO DAILY [facility] Last Admin: 04/15/17 08:20 Dose: 325 mg Bisacodyl (Dulcolax) 10 mg RECTALLY DAILY PRN PRN Reason: Constipation Last Admin: 04/14/17 06:26 Dose: 10 mg Lorazepam (Ativan) 0.5 mg PO Q6H PRN PRN Reason: Extreme agitation Last Admin: 04/14/17 04:47 Dose: 0.5 mg Lorazepam (Ativan Inj) 0.5 mg IM Q6H PRN PRN Reason: Extreme agitation Lorazepam (Ativan) 1 mg PO [facility] Last Admin: 04/15/17 19:57 Dose: 1 mg Magnesium Hydroxide (Mom) 30 ml PO DAILY PRN PRN Reason: Constipation Melatonin (Melatonin) 10 mg PO 1999 [facility] Last Admin: 04/15/17 19:57 Dose: 10 mg Metoprolol Tartrate (Lopressor) 25 mg PO BIDWM [facility] Last Admin: 04/15/17 17:14 Dose: 25 mg Pom Roserem 8mg (Tablet) 1 each PO [facility] Last Admin: 04/15/17 19:58 Dose: 1 each Oseltamivir Phosphate (Tamiflu) 75 mg PO BID [facility] Stop: 04/18/17 21:01 Last Admin: 04/15/17 19:58 Dose: 75 mg Polyethylene Glycol (Miralax) 17 gm PO DAILY [facility] Last Admin: 04/15/17 08:20 Dose: 17 gm Quetiapine Fumarate (Seroquel) 100 mg PO [facility] Last Admin: 04/15/17 19:59 Dose: 100 mg Senna/Docusate Sodium (Senna Plus Tablet) 1 tab PO BID PRN PRN Reason: Constipation Subjective: Patient seen and chart reviewed. Case discussed with treatment team. On interview, patient is in a good mood but appears more manic, continues to be quite hyperverbal, tangential with very limited attention span. She asks repeatedly why she is living in [place]. She responds well to verbal redirection but then STM and attention are so poor, this is short-lived. SLUMS was attempted and she scored 3/30 but this was due to poor attention span and not believed to be accurate reflection of cognition. Patient denies any SI, HI or AVH. Patient has previously reported feeling more confused due to psych meds. Nursing staff report patient has behaved similarly through the day. Patient has been adherent with medications. Patient slept 8.5 hours overnight after starting Rozerem last night, increasing melatonin to 10mg and decreasing temazepam to 15mg. VSS. Patient is eating well. Psychotropic PRNs required in the past 24 hours: none. Discussed care with daughter/DPOA Helen in regards to differential dx, treatment and plan. Agreed to attempt taper, discontinuation of benzos and maintain sleep, consider MRI once patient is able to cooperate, and whether Seroquel may be causing akathisia. Patient's mother has hx of bipolar disorder but Helen denies any previous hx of bipolar symptoms in patient. Start Time: 10:00 Stop Time: 10:20 Mental Status Exam Vitals: Last Vital Signs Temp 98.4 F 04/15/17 20:21 Pulse 75 04/15/17 20:21 Resp 16 04/15/17 20:21 BP 140/74 H 04/15/17 20:21 Pulse Ox 98 04/15/17 20:21 Height: 1.55 m Weight: 68.4 kg - Mental Status Exam Muscle Strength/Tone: Normal Dressing: Casual Grooming: Good Attitude: Cooperative Motor Activity: Akathisia (possible), Restless Eye Contact: Good Speech: Rapid Volume: Normal Rhythm: Appropriate Rhythm Orientation: Disoriented to time, Disoriented to place, Disoriented to situation , Oriented to person Mood: Euthymic Affect: Manic Rate of Thoughts: Pressured Thought Organization: Disorganized, Tangential, Confused Associations: Flight of Ideas, Illogical Abstract Reasoning: Poor abstract reasoning Thought Content: Hyper-religiosity (believed to be baseline - possible?) Perception/Psychotic: Hx psychosis, not current Language: Naming Intact Fund of Knowledge: Other (Decreased from baseline (above average pre-morbidly)) Memory: Poor-immediate, Poor-recent Suicidal Ideation: Denies Homicidal Ideation: Denies Insight: Limited Judgement: Impaired Impulse Control: Other (Limited) - Laboratory Result Diagrams: 04/13/17 11:40 04/13/17 11:40 Assessment and Plan (1) Acute psychosis Problem details: R/O Mood disorder R/O Delirium due to unknown etiology R/O Major neurocognitive disorder Current visit: Yes Status: Acute On 04/14/17: Decreased temazepam to 15mg PO q HS. Increased melatonin to 10mg PO q HS. Started Rozerem 8mg PO q HS to target insomnia (obtained informed consent from DPOA prior). Continue Seroquel 100mg PO q HS, monitoring for akathisia. 04/15/17: Discontinue temazepam, start lorazepam 1mg PO q HS to target insomnia with plan to taper/discontinue in the event that benzo is disinhibiting patient. Concern that Seroquel may be causing akathisia - consider whether mood stabilizer may be more useful. Hospital Course Summary Disclaimer: The visit summary below is not to be considered part of the above Progress Note. 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 - Agree with admission to [facility] unit for further psychiatric evaluation and treatment by Dr. Ellison. Hospitalist service consulted for medical management. - Provide safe and supportive environment. - Labs obtained in ED prior to admission were unremarkable. Will monitor periodically throughout admission. - History of hyponatremia with seizure on 03/15/17 resulting in acute admission at [facility] with complete resolution. - CXR on admission revealed no acute cardiopulmonary changes. - Nursing reports recent fall during acute hospitalization at [place]. Consider CT head for further evaluation of acute behavioral changes in light of possible head injury as well as history of breast CA. - Family reports increased behaviors and agitation with Haldol and Xanax. PRN medications per Dr. Ellison. - Monitor closely as she is a high elopement risk. Hypertension with mitral valve and tricuspid valve prolapse. - Elevated blood pressure noted on admission (162/79). Monitor blood pressure closely. - Metoprolol 25mg BID initiated during acute hospitalization in [place] from 03/15-03/17/17. Monitor heart rate closely as well. - Given multivalve prolapse and hypertension, will initiate ASA daily for CAD prophylaxis. - 2+ pedal edema noted to bilateral lower extremities. Family reports patient has PRN medication for swelling but is unsure of name of drug. Will continue to monitor edema closely as well as daily weights and respiratory function. - TREMAYNE hose and elevation as tolerated. Constipation. - Encourage bowel motivation with daily miralax and senna plus PRN. Urinary retention requiring self straight cancerization twice a day with history of UTI. - UA in ED revealed 10-20 WBC with >50 squamous epithelial cells and 2+ bacteria. Patient is afebrile, asymptomatic and normal WBC. UA culture pending. - Straight cath at 0800 and 2000 daily. Bladder scan as indicated for concerns of additional retention. - Repeat UA given concern for contamination of initial sample. History of seizure secondary to hyponatremia - 03/15/17. - History consistent with unintentional dilutional hyponatremia resulting in seizure. Monitor electrolytes closely. History of breast cancer with lumpectomy, chemotherapy and radiation - 2002. Plan - 04/14/17 - Patient continues to be hyperverbal with tangental thoughts. Continue psychiatric care per Dr. Ellison and team. Provide safe and supportive environment. - CT head was obtained and negative for acute findings. - UA in ED revealed 10-20 WBC with >50 squamous epithelial cells and 2+ bacteria. Patient is afebrile, asymptomatic and normal WBC. UA culture showing early growth. Repeat UA revealed 5-10 WBC and trace bacteria. - Will initiate Keflex 500mg QID for antimicrobial coverage of urinary pathogens while awaiting culture results given persistent delirium. - Straight cath at 0800 and 2000 daily. Bladder scan as indicated for concerns of additional retention. 04/14/17 Psych: Decreased temazepam to 15mg PO q HS. Increased melatonin to 10mg PO q HS. Started Rozerem 8mg PO q HS to target insomnia (obtained informed consent from DPOA prior). Continue Seroquel 100mg PO q HS, monitoring for akathisia. 04/15/17 Psych: Discontinue temazepam, start lorazepam 1mg PO q HS to target insomnia with plan to taper/discontinue in the event that benzo is disinhibiting patient. Concern that Seroquel may be causing akathisia - consider whether mood stabilizer may be more useful.
[2017-04-16] MEDS: LORazepam 0.5 MG TABLET PO PRN (02:50)
[2017-04-16] MEDS: LORazepam 1 MG TABLET PO SCH ×2 (03:06→21:06)
[2017-04-16] MEDS: RAMELTEON 8 MG PO SCH ×2 (03:06→21:06)
[2017-04-16] MEDS: POLYETHYL GLYCOL 3350 17gm PACKET PO SCH ×2 (07:53→10:53)
[2017-04-16] MEDS: ASPIRIN 325 MG TABLET PO SCH ×2 (07:53→10:52)
[2017-04-16] MEDS ORDERED: LORazepam 1 MG TABLET PO ONE (11:21)
[2017-04-16] MEDS ORDERED: SALINE FLUSH 10ml SYRINGE IV PRN (11:45)
[2017-04-16] MEDS ORDERED: SALINE FLUSH 10ml SYRINGE ONE (11:54)
[2017-04-16] MEDS ORDERED: GADOTERIDOL 279.3mg/ml - 15ml vial IVP ONE (11:55)
--- NOTE | 2017-04-16 13:07 | Pharmacy Consult- Renal Dosing ---
Janice Newman-Renal Dosing - Consult Information RENAL DOSING: Oseltamivir SCr = 0.7 mg/dl. Calculated CrCl = 43 ml/min. Tamiflu dose adjusted to 30 mg po BID for the remaining 2 days of therapy. Pharmacy will monitor and adjust as needed. Thank you, Zara Vidales [facility]
--- NOTE | 2017-04-16 13:38 | Magnetic Resonance Report ---
Indication: Change in mental status PROCEDURE: MR head/brain wo/w con: Encounter: Initial Comparisons: Head CT dated April 13, 2017 Technique: Multiplanar, multisequence, MR imaging of the head with and without contrast was acquired. Contrast: 13 mL of ProHance FINDINGS: The ventricles are of normal size, shape, and contour for the patient's age. The brain stem, cerebellum, and cerebral hemispheres have a normal morphologic appearance as well as MR signal intensity on all pulse sequences. Following intravenous administration of contrast, no areas of abnormal enhancement are evident. There are no areas of restricted diffusion to suggest an acute infarct. There is no evidence of an intracranial mass lesion, intracranial hemorrhage, or hydrocephalus. The visualized portions of the orbits, calvarium, paranasal sinuses, and skull base demonstrate no significant abnormality. IMPRESSION: No acute intracranial abnormality. Unremarkable MRI of the head for the patient's age with and without contrast. .
[2017-04-16] MEDS ORDERED: QUETIAPINE 100 MG TABLET PO SCH (19:23)
[2017-04-16] MEDS: MELATONIN 5 MG TABLET PO SCH (19:44)
--- NOTE | 2017-04-16 20:51 | Neuropsych Progress Note ---
[facility] Subjective Date: 04/17/17 - Sujective/Severity of Illness Medications: Acetaminophen (Tylenol) 1,000 mg PO PRN PRN PRN Reason: Pain Last Admin: 04/15/17 04:17 Dose: 1,000 mg Aspirin (Asa) 325 mg PO DAILY [facility] Last Admin: 04/16/17 10:52 Dose: Not Given Bisacodyl (Dulcolax) 10 mg RECTALLY DAILY PRN PRN Reason: Constipation Last Admin: 04/14/17 06:26 Dose: 10 mg Lorazepam (Ativan) 0.5 mg PO Q6H PRN PRN Reason: Extreme agitation Last Admin: 04/16/17 02:50 Dose: 0.5 mg Lorazepam (Ativan Inj) 0.5 mg IM Q6H PRN PRN Reason: Extreme agitation Lorazepam (Ativan) [address] [facility] Last Admin: 04/16/17 03:06 Dose: Not Given Magnesium Hydroxide (Mom) 30 ml PO DAILY PRN PRN Reason: Constipation Melatonin (Melatonin) 10 mg PO 1999 [facility] Last Admin: 04/16/17 19:44 Dose: 10 mg Metoprolol Tartrate (Lopressor) 25 mg PO BIDWM [facility] Last Admin: 04/16/17 17:07 Dose: 25 mg Pom Roserem 8mg (Tablet) [address] [facility] Last Admin: 04/16/17 03:06 Dose: Not Given Oseltamivir Phosphate (Tamiflu) 30 mg PO BID [facility] Stop: 04/18/17 21:01 Polyethylene Glycol (Miralax) 17 gm PO DAILY [facility] Last Admin: 04/16/17 10:53 Dose: Not Given Quetiapine Fumarate (Seroquel) [address] [facility] Senna/Docusate Sodium (Senna Plus Tablet) 1 tab PO BID PRN PRN Reason: Constipation Sodium Chloride (Iv Flush) 10 ml IV PRN PRN PRN Reason: Flushing Last Admin: 04/16/17 12:05 Dose: 10 ml Subjective: Patient seen and chart reviewed. Case discussed with treatment team. On interview, patient is in a good mood and less confused than yesterday. She had an MRI earlier and was given PRN Ativan 1mg prior and I believe this has significantly slowed her down, some symptoms thus may be to benzo withdrawal. Patient denies any SI, HI or AVH. Patient denies any physical complaints. Nursing staff report patient is pleasant but can be impulsive, has reported morbid thoughts, has used profanity, has broken out in song on the unit. Patient has been adherent with medications. Patient slept ~5 hours overnight though interrupted. VSS. Patient is eating well. Psychotropic PRNs required in the past 24 hours: none other than for MRI as above. Discussed care with daughter/HEMANT Cervantes in regards to differential dx, treatment and plan. Agreed to slowly taper Seroquel to 75mg PO q HS tonight and monitor for any improvement in restlessness. Start Time: 11:00 Stop Time: 11:20 Mental Status Exam Vitals: Last Vital Signs Temp 97.7 F 04/16/17 16:06 Pulse 93 04/16/17 16:06 Resp 18 04/16/17 16:06 BP 127/66 04/16/17 16:06 Pulse Ox 96 04/16/17 16:06 Height: 1.55 m Weight: 68.4 kg - Mental Status Exam Muscle Strength/Tone: Normal Dressing: Casual Grooming: Good Attitude: Cooperative Motor Activity: Akathisia (possible) Eye Contact: Good Speech: Normal Volume: Normal Rhythm: Appropriate Rhythm Orientation: Disoriented to time, Disoriented to place (intermittent), Oriented to person Mood: Euthymic Affect: Manic (possible) Rate of Thoughts: Appropriate Rate (after Ativan) Thought Organization: Organized, Tangential, Confused Associations: Illogical (at times) Abstract Reasoning: Poor abstract reasoning Thought Content: Normal (other than confusion) Perception/Psychotic: Hx psychosis, not current Language: Naming Intact Fund of Knowledge: Other (Decreased from baseline (above average pre-morbidly)) Memory: Poor-immediate, Poor-recent Suicidal Ideation: Denies Homicidal Ideation: Denies Insight: Limited Judgement: Impaired Impulse Control: Other (Limited) - Laboratory Result Diagrams: 04/13/17 11:40 04/13/17 11:40 Laboratory Results - last 24 hr 04/16/17 07:21 Hemoglobin A1c 5.0 Triglycerides 131 Cholesterol 187 LDL Cholesterol, Calc 107.8 VLDL Cholesterol 26.2 HDL Cholesterol 53 Cholesterol/HDL Ratio 3.5 Assessment and Plan (1) Acute psychosis Problem details: R/O Mood disorder R/O Delirium due to unknown etiology R/O Major neurocognitive disorder Current visit: Yes Status: Acute Continue current care - encouraging nursing staff to use PRN Ativan during day if needed. Will decrease Seroquel to 75mg PO q HS tonight; monitor for any improvement in restlessness Hospital Course Summary Disclaimer: The visit summary below is not to be considered part of the above Progress Note. 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 - Agree with admission to [facility] for further psychiatric evaluation and treatment by Dr. Ellison. Hospitalist service consulted for medical management. - Provide safe and supportive environment. - Labs obtained in ED prior to admission were unremarkable. Will monitor periodically throughout admission. - History of hyponatremia with seizure on 03/15/17 resulting in acute admission at [facility] with complete resolution. - CXR on admission revealed no acute cardiopulmonary changes. - Nursing reports recent fall during acute hospitalization at [place]. Consider CT head for further evaluation of acute behavioral changes in light of possible head injury as well as history of breast CA. - Family reports increased behaviors and agitation with Haldol and Xanax. PRN medications per Dr. Ellison. - Monitor closely as she is a high elopement risk. Hypertension with mitral valve and tricuspid valve prolapse. - Elevated blood pressure noted on admission (162/79). Monitor blood pressure closely. - Metoprolol 25mg BID initiated during acute hospitalization in [place] from 03/15-03/17/17. Monitor heart rate closely as well. - Given multivalve prolapse and hypertension, will initiate ASA daily for CAD prophylaxis. - 2+ pedal edema noted to bilateral lower extremities. Family reports patient has PRN medication for swelling but is unsure of name of drug. Will continue to monitor edema closely as well as daily weights and respiratory function. - TREMAYNE hose and elevation as tolerated. Constipation. - Encourage bowel motivation with daily miralax and senna plus PRN. Urinary retention requiring self straight cancerization twice a day with history of UTI. - UA in ED revealed 10-20 WBC with >50 squamous epithelial cells and 2+ bacteria. Patient is afebrile, asymptomatic and normal WBC. UA culture pending. - Straight cath at 0800 and 2000 daily. Bladder scan as indicated for concerns of additional retention. - Repeat UA given concern for contamination of initial sample. History of seizure secondary to hyponatremia - 03/15/17. - History consistent with unintentional dilutional hyponatremia resulting in seizure. Monitor electrolytes closely. History of breast cancer with lumpectomy, chemotherapy and radiation - 2002. Plan - 04/14/17 - Patient continues to be hyperverbal with tangental thoughts. Continue psychiatric care per Dr. Ellison and team. Provide safe and supportive environment. - CT head was obtained and negative for acute findings. - UA in ED revealed 10-20 WBC with >50 squamous epithelial cells and 2+ bacteria. Patient is afebrile, asymptomatic and normal WBC. UA culture showing early growth. Repeat UA revealed 5-10 WBC and trace bacteria. - Will initiate Keflex 500mg QID for antimicrobial coverage of urinary pathogens while awaiting culture results given persistent delirium. - Straight cath at 0800 and 2000 daily. Bladder scan as indicated for concerns of additional retention. 04/14/17 Psych: Decreased temazepam to 15mg PO q HS. Increased melatonin to 10mg PO q HS. Started Rozerem 8mg PO q HS to target insomnia (obtained informed consent from DPOA prior). Continue Seroquel 100mg PO q HS, monitoring for akathisia. 04/15/17 Psych: Discontinue temazepam, start lorazepam 1mg PO q HS to target insomnia with plan to taper/discontinue in the event that benzo is disinhibiting patient. Concern that Seroquel may be causing akathisia - consider whether mood stabilizer may be more useful. 04/16/17 Psych: MRI done today. Will encourage nursing staff to use PRN Ativan during day if needed. Will decrease Seroquel to 75mg PO q HS tonight; monitor for any improvement in restlessness
[2017-04-17] MEDS: ACETAMINOPHEN 500 MG TABLET PO PRN ×2 (01:49→17:31)
[2017-04-17] MEDS: ASPIRIN 325 MG TABLET PO SCH (08:45)
[2017-04-17] MEDS: POLYETHYL GLYCOL 3350 17gm PACKET PO SCH (08:46)
--- NOTE | 2017-04-17 11:04 | Neuropsych Progress Note ---
[facility] Subjective Date: 04/17/17 - Sujective/Severity of Illness Medications: Acetaminophen (Tylenol) 1,000 mg PO PRN PRN PRN Reason: Pain Last Admin: 04/17/17 01:49 Dose: 1,000 mg Aspirin (Asa) 325 mg PO DAILY [facility] Last Admin: 04/17/17 08:45 Dose: 325 mg Bisacodyl (Dulcolax) 10 mg RECTALLY DAILY PRN PRN Reason: Constipation Last Admin: 04/14/17 06:26 Dose: 10 mg Lorazepam (Ativan) 0.5 mg PO Q6H PRN PRN Reason: Extreme agitation Last Admin: 04/16/17 02:50 Dose: 0.5 mg Lorazepam (Ativan Inj) 0.5 mg IM Q6H PRN PRN Reason: Extreme agitation Lorazepam (Ativan) 1 mg PO HS [facility] Last Admin: 04/16/17 21:06 Dose: 1 mg Magnesium Hydroxide (Mom) 30 ml PO DAILY PRN PRN Reason: Constipation Melatonin (Melatonin) 10 mg PO 1999 [facility] Last Admin: 04/16/17 19:44 Dose: 10 mg Metoprolol Tartrate (Lopressor) 25 mg PO BIDWM [facility] Last Admin: 04/17/17 08:44 Dose: 25 mg Pom Roserem 8mg (Tablet) 1 each PO [facility] Last Admin: 04/16/17 21:06 Dose: 1 each Oseltamivir Phosphate (Tamiflu) 30 mg PO BID [facility] Stop: 04/18/17 21:01 Last Admin: 04/17/17 08:46 Dose: 30 mg Polyethylene Glycol (Miralax) 17 gm PO DAILY [facility] Last Admin: 04/17/17 08:46 Dose: Not Given Quetiapine Fumarate (Seroquel) 75 mg PO [facility] Senna/Docusate Sodium (Senna Plus Tablet) 1 tab PO BID PRN PRN Reason: Constipation Sodium Chloride (Iv Flush) 10 ml IV PRN PRN PRN Reason: Flushing Last Admin: 04/16/17 12:05 Dose: 10 ml Subjective: Patient seen and chart reviewed. Nursing reports pt is doing fairly well. Slept 7 hours and has a good appetite. On face to face the pt remains hyperverbal and tangential but is pleasant. She states she feels she has a UTI but is not able to state why. She reports her mood is stable. Tolerating meds Start Time: 10:00 Stop Time: 10:15 Mental Status Exam Vitals: Last Vital Signs Temp 98.2 F 04/17/17 08:00 Pulse 100 04/17/17 08:00 Resp 16 04/17/17 08:00 BP 134/81 04/17/17 08:00 Pulse Ox 97 04/17/17 08:00 Height: 1.55 m Weight: 68.4 kg - Mental Status Exam Muscle Strength/Tone: Normal Dressing: Casual Grooming: Good Attitude: Cooperative Motor Activity: Akathisia (possible), Restless Eye Contact: Good Speech: Rapid Volume: Normal Rhythm: Appropriate Rhythm Orientation: Disoriented to time, Disoriented to place, Disoriented to situation , Oriented to person Mood: Euthymic Rate of Thoughts: Pressured Thought Organization: Disorganized, Tangential, Confused Associations: Flight of Ideas, Illogical Abstract Reasoning: Poor abstract reasoning Thought Content: Hyper-religiosity (believed to be baseline - possible?) Perception/Psychotic: Hx psychosis, not current Language: Naming Intact Fund of Knowledge: Other (Decreased from baseline (above average pre-morbidly)) Memory: Poor-immediate, Poor-recent Suicidal Ideation: Denies Homicidal Ideation: Denies Insight: Limited Judgement: Impaired Impulse Control: Other (Limited) - Laboratory Result Diagrams: 04/13/17 11:40 04/13/17 11:40 Assessment and Plan (1) Acute psychosis Problem details: R/O Mood disorder R/O Delirium due to unknown etiology R/O Major neurocognitive disorder Current visit: Yes Status: Acute Hospital Course Summary Disclaimer: The visit summary below is not to be considered part of the above Progress Note. 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 - Agree with admission to [facility] unit for further psychiatric evaluation and treatment by Dr. Ellison. Hospitalist service consulted for medical management. - Provide safe and supportive environment. - Labs obtained in ED prior to admission were unremarkable. Will monitor periodically throughout admission. - History of hyponatremia with seizure on 03/15/17 resulting in acute admission at [facility] with complete resolution. - CXR on admission revealed no acute cardiopulmonary changes. - Nursing reports recent fall during acute hospitalization at [place]. Consider CT head for further evaluation of acute behavioral changes in light of possible head injury as well as history of breast CA. - Family reports increased behaviors and agitation with Haldol and Xanax. PRN medications per Dr. Ellison. - Monitor closely as she is a high elopement risk. Hypertension with mitral valve and tricuspid valve prolapse. - Elevated blood pressure noted on admission (162/79). Monitor blood pressure closely. - Metoprolol 25mg BID initiated during acute hospitalization in [place] from 03/15-03/17/17. Monitor heart rate closely as well. - Given multivalve prolapse and hypertension, will initiate ASA daily for CAD prophylaxis. - 2+ pedal edema noted to bilateral lower extremities. Family reports patient has PRN medication for swelling but is unsure of name of drug. Will continue to monitor edema closely as well as daily weights and respiratory function. - TREMAYNE hose and elevation as tolerated. Constipation. - Encourage bowel motivation with daily miralax and senna plus PRN. Urinary retention requiring self straight cancerization twice a day with history of UTI. - UA in ED revealed 10-20 WBC with >50 squamous epithelial cells and 2+ bacteria. Patient is afebrile, asymptomatic and normal WBC. UA culture pending. - Straight cath at 0800 and 2000 daily. Bladder scan as indicated for concerns of additional retention. - Repeat UA given concern for contamination of initial sample. History of seizure secondary to hyponatremia - 03/15/17. - History consistent with unintentional dilutional hyponatremia resulting in seizure. Monitor electrolytes closely. History of breast cancer with lumpectomy, chemotherapy and radiation - 2002. Plan - 04/14/17 - Patient continues to be hyperverbal with tangental thoughts. Continue psychiatric care per Dr. Ellison and team. Provide safe and supportive environment. - CT head was obtained and negative for acute findings. - UA in ED revealed 10-20 WBC with >50 squamous epithelial cells and 2+ bacteria. Patient is afebrile, asymptomatic and normal WBC. UA culture showing early growth. Repeat UA revealed 5-10 WBC and trace bacteria. - Will initiate Keflex 500mg QID for antimicrobial coverage of urinary pathogens while awaiting culture results given persistent delirium. - Straight cath at 0800 and 2000 daily. Bladder scan as indicated for concerns of additional retention. 04/14/17 Psych: Decreased temazepam to 15mg PO q HS. Increased melatonin to 10mg PO q HS. Started Rozerem 8mg PO q HS to target insomnia (obtained informed consent from DPOA prior). Continue Seroquel 100mg PO q HS, monitoring for akathisia. 04/15/17 Psych: Discontinue temazepam, start lorazepam 1mg PO q HS to target insomnia with plan to taper/discontinue in the event that benzo is disinhibiting patient. Concern that Seroquel may be causing akathisia - consider whether mood stabilizer may be more useful. 04/17/17 Pt remains tangential and hyperverbal but no behaviors noted. Continue current care
[2017-04-17] MEDS: LORazepam 0.5 MG TABLET PO PRN (11:05)
[2017-04-17] MEDS: RAMELTEON 8 MG PO SCH ×2 (19:50→22:46)
[2017-04-17] MEDS: LORazepam 1 MG TABLET PO SCH ×2 (19:50→22:46)
[2017-04-17] MEDS: QUETIAPINE 25 MG TABLET PO SCH ×2 (19:51→22:47)
[2017-04-18] MEDS: POLYETHYL GLYCOL 3350 17gm PACKET PO SCH (11:04)
[2017-04-18] MEDS: ASPIRIN 325 MG TABLET PO SCH (11:04)
--- NOTE | 2017-04-18 13:35 | Neuropsych Progress Note ---
[facility] Subjective Date: 04/18/17 - Sujective/Severity of Illness Medications: Acetaminophen (Tylenol) 1,000 mg PO PRN PRN PRN Reason: Pain Last Admin: 04/17/17 17:31 Dose: 1,000 mg Aspirin (Asa) 325 mg PO DAILY [facility] Last Admin: 04/18/17 11:04 Dose: 325 mg Bisacodyl (Dulcolax) 10 mg RECTALLY DAILY PRN PRN Reason: Constipation Last Admin: 04/14/17 06:26 Dose: 10 mg Divalproex Sodium (Depakote) 250 mg PO BID [facility] Lorazepam (Ativan) 0.5 mg PO Q6H PRN PRN Reason: Extreme agitation Last Admin: 04/17/17 11:05 Dose: 0.5 mg Lorazepam (Ativan Inj) 0.5 mg IM Q6H PRN PRN Reason: Extreme agitation Lorazepam (Ativan) 1 mg PO [facility] Last Admin: 04/17/17 22:46 Dose: Not Given Magnesium Hydroxide (Mom) 30 ml PO DAILY PRN PRN Reason: Constipation Metoprolol Tartrate (Lopressor) 25 mg PO BIDWM [facility] Last Admin: 04/18/17 11:04 Dose: 25 mg Pom Roserem 8mg (Tablet) 1 each PO [facility] Last Admin: 04/17/17 22:46 Dose: Not Given Oseltamivir Phosphate (Tamiflu) 30 mg PO BID [facility] Stop: 04/18/17 21:01 Last Admin: 04/18/17 11:04 Dose: 30 mg Polyethylene Glycol (Miralax) 17 gm PO DAILY [facility] Last Admin: 04/18/17 11:04 Dose: 17 gm Quetiapine Fumarate (Seroquel) 75 mg PO [facility] Last Admin: 04/17/17 22:47 Dose: Not Given Senna/Docusate Sodium (Senna Plus Tablet) 1 tab PO BID PRN PRN Reason: Constipation Sodium Chloride (Iv Flush) 10 ml IV PRN PRN PRN Reason: Flushing Last Admin: 04/16/17 12:05 Dose: 10 ml Subjective: Patient seen and chart reviewed. Nursing reports pt is doing fairly well. Did not sleep well last night but has a good appetite. On face to face the pt is pleasant but confused. She is hyperverbal and tangential but no other manic type symptoms are seen. She reports her mood is stable. She reports tolerating her medication well. Start Time: 10:15 Stop Time: 10:30 Mental Status Exam Vitals: Last Vital Signs Temp 97.6 F 04/18/17 08:00 Pulse 87 04/18/17 08:00 Resp 20 04/18/17 08:00 BP 143/71 H 04/18/17 08:00 Pulse Ox 98 04/18/17 08:00 Height: 1.55 m Weight: 68.4 kg - Mental Status Exam Muscle Strength/Tone: Normal Dressing: Casual Grooming: Good Attitude: Cooperative Motor Activity: Akathisia (possible) Eye Contact: Good Speech: Normal Volume: Normal Rhythm: Appropriate Rhythm Orientation: Disoriented to time, Disoriented to place (intermittent), Oriented to person Mood: Euthymic Rate of Thoughts: Appropriate Rate (after Ativan) Thought Organization: Organized, Tangential, Confused Associations: Illogical (at times) Abstract Reasoning: Poor abstract reasoning Thought Content: Normal (other than confusion) Perception/Psychotic: Hx psychosis, not current Language: Naming Intact Fund of Knowledge: Other (Decreased from baseline (above average pre-morbidly)) Memory: Poor-immediate, Poor-recent Suicidal Ideation: Denies Homicidal Ideation: Denies Insight: Limited Judgement: Impaired Impulse Control: Other (Limited) - Laboratory Result Diagrams: 04/13/17 11:40 04/13/17 11:40 Assessment and Plan (1) Acute psychosis Problem details: R/O Mood disorder R/O Delirium due to unknown etiology R/O Major neurocognitive disorder Current visit: Yes Status: Acute Hospital Course Summary Disclaimer: The visit summary below is not to be considered part of the above Progress Note. 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 - Agree with admission to [facility] for further psychiatric evaluation and treatment by Dr. Ellison. Hospitalist service consulted for medical management. - Provide safe and supportive environment. - Labs obtained in ED prior to admission were unremarkable. Will monitor periodically throughout admission. - History of hyponatremia with seizure on 03/15/17 resulting in acute admission at [facility] with complete resolution. - CXR on admission revealed no acute cardiopulmonary changes. - Nursing reports recent fall during acute hospitalization at [place]. Consider CT head for further evaluation of acute behavioral changes in light of possible head injury as well as history of breast CA. - Family reports increased behaviors and agitation with Haldol and Xanax. PRN medications per Dr. Ellison. - Monitor closely as she is a high elopement risk. Hypertension with mitral valve and tricuspid valve prolapse. - Elevated blood pressure noted on admission (162/79). Monitor blood pressure closely. - Metoprolol 25mg BID initiated during acute hospitalization in [place] from 03/15-03/17/17. Monitor heart rate closely as well. - Given multivalve prolapse and hypertension, will initiate ASA daily for CAD prophylaxis. - 2+ pedal edema noted to bilateral lower extremities. Family reports patient has PRN medication for swelling but is unsure of name of drug. Will continue to monitor edema closely as well as daily weights and respiratory function. - TREMAYNE hose and elevation as tolerated. Constipation. - Encourage bowel motivation with daily miralax and senna plus PRN. Urinary retention requiring self straight cancerization twice a day with history of UTI. - UA in ED revealed 10-20 WBC with >50 squamous epithelial cells and 2+ bacteria. Patient is afebrile, asymptomatic and normal WBC. UA culture pending. - Straight cath at 0800 and 2000 daily. Bladder scan as indicated for concerns of additional retention. - Repeat UA given concern for contamination of initial sample. History of seizure secondary to hyponatremia - 03/15/17. - History consistent with unintentional dilutional hyponatremia resulting in seizure. Monitor electrolytes closely. History of breast cancer with lumpectomy, chemotherapy and radiation - 2002. Plan - 04/14/17 - Patient continues to be hyperverbal with tangental thoughts. Continue psychiatric care per Dr. Ellison and team. Provide safe and supportive environment. - CT head was obtained and negative for acute findings. - UA in ED revealed 10-20 WBC with >50 squamous epithelial cells and 2+ bacteria. Patient is afebrile, asymptomatic and normal WBC. UA culture showing early growth. Repeat UA revealed 5-10 WBC and trace bacteria. - Will initiate Keflex 500mg QID for antimicrobial coverage of urinary pathogens while awaiting culture results given persistent delirium. - Straight cath at 0800 and 2000 daily. Bladder scan as indicated for concerns of additional retention. 04/14/17 Psych: Decreased temazepam to 15mg PO q HS. Increased melatonin to 10mg PO q HS. Started Rozerem 8mg PO q HS to target insomnia (obtained informed consent from DPOA prior). Continue Seroquel 100mg PO q HS, monitoring for akathisia. 04/15/17 Psych: Discontinue temazepam, start lorazepam 1mg PO q HS to target insomnia with plan to taper/discontinue in the event that benzo is disinhibiting patient. Concern that Seroquel may be causing akathisia - consider whether mood stabilizer may be more useful. 04/16/17 Psych: MRI done today. Will encourage nursing staff to use PRN Ativan during day if needed. Will decrease Seroquel to 75mg PO q HS tonight; monitor for any improvement in restlessness 04/18/17 Hyperverbal and tangential at times. Will start Depakote 250mg PO BID
[2017-04-18] MEDS: LORazepam 0.5 MG TABLET PO PRN (14:07)
[2017-04-18] MEDS: DIVALPROEX 250 MG TABLET PO SCH (20:07)
[2017-04-18] MEDS: RAMELTEON 8 MG PO SCH (20:07)
[2017-04-18] MEDS: LORazepam 1 MG TABLET PO SCH (20:07)
[2017-04-18] MEDS: QUETIAPINE 25 MG TABLET PO SCH (20:08)
[2017-04-19] MEDS: ACETAMINOPHEN 500 MG TABLET PO PRN (00:38)
[2017-04-19] MEDS: LORazepam 0.5 MG TABLET PO PRN (00:39)
[2017-04-19] MEDS: DIVALPROEX 250 MG TABLET PO SCH (08:16)
[2017-04-19] MEDS: POLYETHYL GLYCOL 3350 17gm PACKET PO SCH (08:16)
[2017-04-19] MEDS: ASPIRIN 325 MG TABLET PO SCH (08:16)
--- NOTE | 2017-04-19 13:37 | Neuropsych Progress Note ---
[facility] Subjective Date: 04/19/17 - Sujective/Severity of Illness Medications: Acetaminophen (Tylenol) 1,000 mg PO PRN PRN PRN Reason: Pain Last Admin: 04/19/17 00:38 Dose: 1,000 mg Aspirin (Asa) 325 mg PO DAILY [facility] Last Admin: 04/19/17 08:16 Dose: 325 mg Bisacodyl (Dulcolax) 10 mg RECTALLY DAILY PRN PRN Reason: Constipation Last Admin: 04/14/17 06:26 Dose: 10 mg Divalproex Sodium (Depakote Er) 500 mg PO [facility] Lorazepam (Ativan) 0.5 mg PO Q6H PRN PRN Reason: Extreme agitation Last Admin: 04/19/17 00:39 Dose: 0.5 mg Lorazepam (Ativan Inj) 0.5 mg IM Q6H PRN PRN Reason: Extreme agitation Lorazepam (Ativan) 1 mg PO HS [facility] Last Admin: 04/18/17 20:07 Dose: 1 mg Magnesium Hydroxide (Mom) 30 ml PO DAILY PRN PRN Reason: Constipation Last Admin: 04/18/17 20:18 Dose: 30 ml Metoprolol Tartrate (Lopressor) 25 mg PO BIDWM [facility] Last Admin: 04/19/17 08:16 Dose: 25 mg Pom Roserem 8mg (Tablet) 1 each PO HS [facility] Last Admin: 04/18/17 20:07 Dose: 1 each Polyethylene Glycol (Miralax) 17 gm PO DAILY [facility] Last Admin: 04/19/17 08:16 Dose: 17 gm Quetiapine Fumarate (Seroquel) 50 mg PO [facility] Senna/Docusate Sodium (Senna Plus Tablet) 1 tab PO BID PRN PRN Reason: Constipation Last Admin: 04/19/17 08:17 Dose: 1 tab Sodium Chloride (Iv Flush) 10 ml IV PRN PRN PRN Reason: Flushing Last Admin: 04/16/17 12:05 Dose: 10 ml Subjective: Patient seen and chart reviewed. Case discussed with treatment team. On interview, patient continues to be quite disorganized, tangential and hyperverbal. Staff feel content of thought has gotten more negative over weekend. Patient says she feels "confused as hell." She frequently talks about [place], , [place], and [employer] in different contexts. Patient denies any SI, HI or AVH. Nursing staff report patient has behaved similarly over past 24 hours; no aggressive behavior on the unit. Patient has been adherent with medications. Patient slept only 3.25 hours interrupted overnight. VSS. Poor appetite d/t attention span being so poor that she has to be fed (a significant change in functioning from prior). Psychotropic PRNs required in the past 24 hours: Ativan 0.5mg PO x 1. Start Time: 08:20 Stop Time: 08:40 Mental Status Exam Vitals: Last Vital Signs Temp 98 F 04/19/17 08:00 Pulse 101 H 04/19/17 08:00 Resp 24 04/19/17 08:00 BP 156/76 H 04/19/17 08:00 Pulse Ox 97 04/19/17 08:00 Height: 1.55 m Weight: 68.4 kg - Mental Status Exam Muscle Strength/Tone: Normal Dressing: Casual Grooming: Good Attitude: Cooperative Motor Activity: Akathisia (possible) Eye Contact: Good Speech: Normal Volume: Normal Rhythm: Appropriate Rhythm Orientation: Disoriented to time, Disoriented to place, Disoriented to situation , Oriented to person Mood: Neutral Affect: Manic Rate of Thoughts: Pressured Thought Organization: Disorganized, Tangential, Confused Associations: Flight of Ideas, Loose-associations, Illogical Abstract Reasoning: Poor abstract reasoning Thought Content: Normal (other than confusion) Perception/Psychotic: Psychotic Fund of Knowledge: Other (Decreased from baseline (above average pre-morbidly)) Memory: Poor-immediate, Poor-recent Suicidal Ideation: Denies Homicidal Ideation: Denies Insight: Impaired Judgement: Impaired Impulse Control: Poor - Laboratory Result Diagrams: 04/13/17 11:40 04/13/17 11:40 Assessment and Plan (1) Acute psychosis Problem details: R/O Mood disorder R/O Delirium due to unknown etiology R/O Major neurocognitive disorder Current visit: Yes Status: Acute Will switch Depakote to Depakote ER 500mg PO q HS to target insomnia, decrease Seroquel to 50mg PO q HS in the event it is contributing to restlessness/ akathisia. Patient continues to appear quite manic. Hospital Course Summary Disclaimer: The visit summary below is not to be considered part of the above Progress Note. 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 - Agree with admission to [facility] for further psychiatric evaluation and treatment by Dr. Ellison. Hospitalist service consulted for medical management. - Provide safe and supportive environment. - Labs obtained in ED prior to admission were unremarkable. Will monitor periodically throughout admission. - History of hyponatremia with seizure on 03/15/17 resulting in acute admission at [facility] with complete resolution. - CXR on admission revealed no acute cardiopulmonary changes. - Nursing reports recent fall during acute hospitalization at [place]. Consider CT head for further evaluation of acute behavioral changes in light of possible head injury as well as history of breast CA. - Family reports increased behaviors and agitation with Haldol and Xanax. PRN medications per Dr. Ellison. - Monitor closely as she is a high elopement risk. Hypertension with mitral valve and tricuspid valve prolapse. - Elevated blood pressure noted on admission (162/79). Monitor blood pressure closely. - Metoprolol 25mg BID initiated during acute hospitalization in [place] from 03/15-03/17/17. Monitor heart rate closely as well. - Given multivalve prolapse and hypertension, will initiate ASA daily for CAD prophylaxis. - 2+ pedal edema noted to bilateral lower extremities. Family reports patient has PRN medication for swelling but is unsure of name of drug. Will continue to monitor edema closely as well as daily weights and respiratory function. - TREMAYNE hose and elevation as tolerated. Constipation. - Encourage bowel motivation with daily miralax and senna plus PRN. Urinary retention requiring self straight cancerization twice a day with history of UTI. - UA in ED revealed 10-20 WBC with >50 squamous epithelial cells and 2+ bacteria. Patient is afebrile, asymptomatic and normal WBC. UA culture pending. - Straight cath at 0800 and 2000 daily. Bladder scan as indicated for concerns of additional retention. - Repeat UA given concern for contamination of initial sample. History of seizure secondary to hyponatremia - 03/15/17. - History consistent with unintentional dilutional hyponatremia resulting in seizure. Monitor electrolytes closely. History of breast cancer with lumpectomy, chemotherapy and radiation - 2002. Plan - 04/14/17 - Patient continues to be hyperverbal with tangental thoughts. Continue psychiatric care per Dr. Ellison and team. Provide safe and supportive environment. - CT head was obtained and negative for acute findings. - UA in ED revealed 10-20 WBC with >50 squamous epithelial cells and 2+ bacteria. Patient is afebrile, asymptomatic and normal WBC. UA culture showing early growth. Repeat UA revealed 5-10 WBC and trace bacteria. - Will initiate Keflex 500mg QID for antimicrobial coverage of urinary pathogens while awaiting culture results given persistent delirium. - Straight cath at 0800 and 2000 daily. Bladder scan as indicated for concerns of additional retention. 04/14/17 Psych: Decreased temazepam to 15mg PO q HS. Increased melatonin to 10mg PO q HS. Started Rozerem 8mg PO q HS to target insomnia (obtained informed consent from DPOA prior). Continue Seroquel 100mg PO q HS, monitoring for akathisia. 04/15/17 Psych: Discontinue temazepam, start lorazepam 1mg PO q HS to target insomnia with plan to taper/discontinue in the event that benzo is disinhibiting patient. Concern that Seroquel may be causing akathisia - consider whether mood stabilizer may be more useful. 04/16/17 Psych: MRI done today. Will encourage nursing staff to use PRN Ativan during day if needed. Will decrease Seroquel to 75mg PO q HS tonight; monitor for any improvement in restlessness 04/17/17 Psych: Pt remains tangential and hyperverbal but no behaviors noted. Continue current care. 04/18/17 Psych: Hyperverbal and tangential at times. Will start Depakote 250mg PO BID. 04/19/17 Psych: Will switch/increase Depakote to Depakote ER 750mg PO q HS to target insomnia, decrease Seroquel to 50mg PO q HS in the event it is contributing to restlessness/akathisia. Patient continues to appear quite manic.
--- NOTE | 2017-04-19 16:32 | Progress Note ---
- Date 04/19/17 Subjective: Patient is seen at the breakfast table. She believes we're in [place]. She talks frequently about her daughter Leslie and other family members. She changes the subject recurrently. Quite talkative. Has no physical complaints at this time. Patient's daughter is a nurse and would be interested in trying atenolol in place of metoprolol as she has read the metoprolol could cause delirium. Also wonders about using Rocephin IM for her "UTI." Objective Vital signs: Temperature 99.6 F 04/19/17 15:57 Pulse Rate 80 04/19/17 15:57 Respiratory Rate 16 04/19/17 15:57 Blood Pressure 143/78 H 04/19/17 15:57 Pulse Oximetry 100 04/19/17 15:57 Height/Weight/BMI: Height 1.55 m Weight 68.4 kg Body Mass Index 28.5 - Constitutional Present: no acute distress, well nourished, well developed - Routine HEENT Exam Head: Present: normocephalic, atraumatic - Routine Respiratory Exam Present: CTA bilaterally. Absent: wheezes - Routine Cardiovascular Exam Present: RRR, no murmur - Routine Abdominal Exam Present: soft, non distended, non tender - Routine Extremities Exam Present: edema (1+ bilateral lower extremities), normal capillary refill - Routine Skin Exam Present: dry, warm - Routine Neurological Exam Present: alert. Absent: oriented X3 - Routine Lymphatic Exam Lymphatic: Absent: adenopathy - Routine Psychiatric Exam Present: normal affect, cooperative Results - Labs CBC & Chem 7: 04/13/17 11:40 04/13/17 11:40 Assessment and Plan (1) Dementia with behavioral disturbance Current visit: Yes Status: Acute (2) Acute psychosis Problem details: R/O Mood disorder R/O Delirium due to unknown etiology R/O Major neurocognitive disorder Current visit: Yes Status: Acute Assessment and Plan: Assessment Acute psychosis with restless and paranoia. Dementia with acute behavioral disturbance. Hypertension. Mitral valve and tricuspid valve prolapse. Constipation. Urinary retention requiring self straight cancerization twice a day. History of breast cancer with lumpectomy, chemotherapy and radiation - 2002. History of seizure secondary to hyponatremia - 03/15/17. History of UTI. Plan Discussed case with Dr. Ellis. Given she is not on metoprolol for CHF, it is not unreasonable to switch patient to atenolol. Equivalent dosing with current dose of metoprolol is atenolol 25 mg daily. (Pharmacy confirmed.) Reviewed her urine culture which showed bacterial karma consistent with contamination. Antibiotics not indicated. Cephalexin was discontinued when culture was resulted. She had a straight catheter urinalysis the following day which was negative. If daughter feels patient is having urinary symptoms, okay to check straight cath urinalysis. Nurse's notes, psychiatric notes, labs and vital signs reviewed. - Physician Narrative Narrative: Date: 04/19/17 Time: 1628 Hospital Course Summary Disclaimer: The visit summary below is not to be considered part of the above Progress Note. 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 - Agree with admission to [facility] for further psychiatric evaluation and treatment by Dr. Ellison. Hospitalist service consulted for medical management. - Provide safe and supportive environment. - Labs obtained in ED prior to admission were unremarkable. Will monitor periodically throughout admission. - History of hyponatremia with seizure on 03/15/17 resulting in acute admission at [facility] with complete resolution. - CXR on admission revealed no acute cardiopulmonary changes. - Nursing reports recent fall during acute hospitalization at [place]. Consider CT head for further evaluation of acute behavioral changes in light of possible head injury as well as history of breast CA. - Family reports increased behaviors and agitation with Haldol and Xanax. PRN medications per Dr. Ellison. - Monitor closely as she is a high elopement risk. Hypertension with mitral valve and tricuspid valve prolapse. - Elevated blood pressure noted on admission (162/79). Monitor blood pressure closely. - Metoprolol 25mg BID initiated during acute hospitalization in [place] from 03/15-03/17/17. Monitor heart rate closely as well. - Given multivalve prolapse and hypertension, will initiate ASA daily for CAD prophylaxis. - 2+ pedal edema noted to bilateral lower extremities. Family reports patient has PRN medication for swelling but is unsure of name of drug. Will continue to monitor edema closely as well as daily weights and respiratory function. - TREMAYNE hose and elevation as tolerated. Constipation. - Encourage bowel motivation with daily miralax and senna plus PRN. Urinary retention requiring self straight cancerization twice a day with history of UTI. - UA in ED revealed 10-20 WBC with >50 squamous epithelial cells and 2+ bacteria. Patient is afebrile, asymptomatic and normal WBC. UA culture pending. - Straight cath at 0800 and 2000 daily. Bladder scan as indicated for concerns of additional retention. - Repeat UA given concern for contamination of initial sample. History of seizure secondary to hyponatremia - 03/15/17. - History consistent with unintentional dilutional hyponatremia resulting in seizure. Monitor electrolytes closely. History of breast cancer with lumpectomy, chemotherapy and radiation - 2002. Plan - 04/14/17 - Patient continues to be hyperverbal with tangental thoughts. Continue psychiatric care per Dr. Ellison and team. Provide safe and supportive environment. - CT head was obtained and negative for acute findings. - UA in ED revealed 10-20 WBC with >50 squamous epithelial cells and 2+ bacteria. Patient is afebrile, asymptomatic and normal WBC. UA culture showing early growth. Repeat UA revealed 5-10 WBC and trace bacteria. - Will initiate Keflex 500mg QID for antimicrobial coverage of urinary pathogens while awaiting culture results given persistent delirium. - Straight cath at 0800 and 2000 daily. Bladder scan as indicated for concerns of additional retention. 04/14/17 Psych: Decreased temazepam to 15mg PO q HS. Increased melatonin to 10mg PO q HS. Started Rozerem 8mg PO q HS to target insomnia (obtained informed consent from DPOA prior). Continue Seroquel 100mg PO q HS, monitoring for akathisia. 04/15/17 Psych: Discontinue temazepam, start lorazepam 1mg PO q HS to target insomnia with plan to taper/discontinue in the event that benzo is disinhibiting patient. Concern that Seroquel may be causing akathisia - consider whether mood stabilizer may be more useful. 04/16/17 Psych: MRI done today. Will encourage nursing staff to use PRN Ativan during day if needed. Will decrease Seroquel to 75mg PO q HS tonight; monitor for any improvement in restlessness 04/17/17 Psych: Pt remains tangential and hyperverbal but no behaviors noted. Continue current care. 04/18/17 Psych: Hyperverbal and tangential at times. Will start Depakote 250mg PO BID. 04/19/17 Psych: Will switch/increase Depakote to Depakote ER 750mg PO q HS to target insomnia, decrease Seroquel to 50mg PO q HS in the event it is contributing to restlessness/akathisia. Patient continues to appear quite manic. 04/19/17 Hospitalist: Discussed case with Dr. Ellis. Given she is not on metoprolol for CHF, it is not unreasonable to switch patient to atenolol. Equivalent dosing with current dose of metoprolol is Atenolol 25 mg daily. (Pharmacy confirmed.) Reviewed her urine culture which showed bacterial karma consistent with contamination. Antibiotics not indicated. Cephalexin was discontinued when culture was resulted. She had a straight catheter urinalysis the following day which was negative. If daughter feels patient is having urinary symptoms, okay to check straight cath urinalysis.
[2017-04-19] MEDS: RAMELTEON 8 MG PO SCH (20:13)
[2017-04-19] MEDS: LORazepam 1 MG TABLET PO SCH (20:13)
[2017-04-19] MEDS ORDERED: QUETIAPINE 50 MG TABLET PO SCH (21:00)
[2017-04-20] MEDS: ATENOLOL 25 MG TABLET PO SCH (08:05)
[2017-04-20] MEDS: ASPIRIN 325 MG TABLET PO SCH (08:08)
[2017-04-20] MEDS: POLYETHYL GLYCOL 3350 17gm PACKET PO SCH (08:09)
[2017-04-20] MEDS ORDERED: FOSFOMYCIN 3 GRAM PACKET PO ONE (08:59)
--- NOTE | 2017-04-20 09:04 | Progress Note ---
Progress Note: UA performed by straight cath yesterday shows + nitrites not seen on previous UA. UA performed due to concern for UTI given incontinence and behavior changes. Culture is pending. Give fosfomycin now. If sensitivity shows that fosfomycin isn't adequate/appropriate tx, will treat further based on susceptibilities.
--- NOTE | 2017-04-20 14:31 | Neuropsych Progress Note ---
[facility] Subjective Date: 04/20/17 - Sujective/Severity of Illness Medications: Acetaminophen (Tylenol) 1,000 mg PO PRN PRN PRN Reason: Pain Last Admin: 04/19/17 00:38 Dose: 1,000 mg Aspirin (Asa) 325 mg PO DAILY [facility] Last Admin: 04/20/17 08:08 Dose: 325 mg Atenolol (Tenormin) 25 mg PO DAILY [facility] Last Admin: 04/20/17 08:05 Dose: 25 mg Bisacodyl (Dulcolax) 10 mg RECTALLY DAILY PRN PRN Reason: Constipation Last Admin: 04/14/17 06:26 Dose: 10 mg Divalproex Sodium (Depakote Er) 750 mg PO [facility] Last Admin: 04/19/17 20:14 Dose: 750 mg Lorazepam (Ativan) 0.5 mg PO Q6H PRN PRN Reason: Extreme agitation Last Admin: 04/19/17 00:39 Dose: 0.5 mg Lorazepam (Ativan Inj) 0.5 mg IM Q6H PRN PRN Reason: Extreme agitation Lorazepam (Ativan) 1 mg PO [facility] Last Admin: 04/19/17 20:13 Dose: 1 mg Magnesium Hydroxide (Mom) 30 ml PO DAILY PRN PRN Reason: Constipation Last Admin: 04/18/17 20:18 Dose: 30 ml Pom Roserem 8mg (Tablet) 1 each PO [facility] Last Admin: 04/19/17 20:13 Dose: 1 each Polyethylene Glycol (Miralax) 17 gm PO DAILY [facility] Last Admin: 04/20/17 08:09 Dose: 17 gm Quetiapine Fumarate (Seroquel) 25 mg PO [facility] Senna/Docusate Sodium (Senna Plus Tablet) 1 tab PO BID PRN PRN Reason: Constipation Last Admin: 04/19/17 08:17 Dose: 1 tab Sodium Chloride (Iv Flush) 10 ml IV PRN PRN PRN Reason: Flushing Last Admin: 04/16/17 12:05 Dose: 10 ml Subjective: Patient seen and chart reviewed. Case discussed with treatment team. On interview, patient continues to be quite tangential but has slower speech, seems to be speaking more clearly, and able to hold more of an engaging conversation with others. She was reportedly tearful at times this morning. She says this was because she was thinking of her sister after a song reminded her. Patient denies any SI, HI or AVH. Nursing staff report patient has behaved similarly over past 24 hours; no aggressive behavior on the unit. Patient has been adherent with medications. Patient slept ~4.5 hours interrupted overnight. VSS. Appetite fair. Psychotropic PRNs required in the past 24 hours: None. Start Time: 11:00 Stop Time: 11:20 Mental Status Exam Vitals: Last Vital Signs Temp 97.2 F 04/20/17 07:36 Pulse 96 04/20/17 07:36 Resp 18 04/20/17 07:36 BP 133/85 04/20/17 07:36 Pulse Ox 97 04/20/17 07:36 Height: 1.55 m Weight: 68.4 kg - Mental Status Exam Muscle Strength/Tone: Normal Dressing: Casual Grooming: Good Attitude: Cooperative Motor Activity: Normal Eye Contact: Good Speech: Normal Volume: Normal Rhythm: Appropriate Rhythm Orientation: Disoriented to time, Disoriented to place, Disoriented to situation , Oriented to person Mood: Neutral Affect: Tearful (at times) Rate of Thoughts: Appropriate Rate Thought Organization: Tangential, Confused Associations: Flight of Ideas, Loose-associations, Illogical Abstract Reasoning: Poor abstract reasoning Thought Content: Normal (other than confusion) Perception/Psychotic: Hx psychosis, not current Language: Naming Intact Fund of Knowledge: Other (Decreased from baseline (above average pre-morbidly)) Memory: Poor-immediate, Poor-recent Suicidal Ideation: Denies Homicidal Ideation: Denies Insight: Impaired Judgement: Impaired Impulse Control: Poor - Laboratory Result Diagrams: 04/20/17 09:21 04/20/17 09:21 Laboratory Results - last 24 hr 04/19/17 04/20/17 04/20/17 21:00 09:21 09:21 WBC 4.5 RBC 4.50 Hgb 13.7 Hct 42.6 MCV 94.7 MCH 30.4 MCHC 32.2 RDW Std Deviation 42.1 Plt Count 217 MPV 9.3 L Immature Gran % (Auto) 0.2 Neut % (Auto) 55.1 Lymph % (Auto) 34.2 [place] % (Auto) 6.3 Eos % (Auto) 2.9 Baso % (Auto) 1.3 Neut # (Auto) 2.5 Lymph # (Auto) 1.5 [place] # (Auto) 0.3 Eos # (Auto) 0.1 Baso # (Auto) 0.1 Abs Immat Gran (auto) 0.01 Turbidity < 20 Sodium 142 Potassium 3.9 Chloride 103 Carbon Dioxide 29 Anion Gap 10 BUN 17.0 Creatinine 0.6 L GFR Calculation 98 BUN/Creatinine Ratio 28 H Glucose 140 H Calculated Osmolality 277 Calcium 9.5 Icterus Index < 2 Specimen Hemolysis < 15 Ur Collection Type Urine, cath straight Urine Color Yellow Urine Clarity Sl cloudy Urine pH 6.5 Ur Specific [place] 1.010 L Urine Protein Negative Urine Glucose (UA) Negative Urine Ketones Negative Urine Occult Blood 1+ A Urine Nitrate Positive A Urine Bilirubin Negative Urine Urobilinogen 0.2 Ur Leukocyte Esterase 1+ A Urine RBC 3-5 H Urine WBC 5-10 H Urine WBC Clumps Few Urine Bacteria 3+ H Ur Culture Indicated? Cult reflexed &setup Assessment and Plan (1) Acute psychosis Problem details: R/O Mood disorder R/O Delirium due to unknown etiology R/O Major neurocognitive disorder Current visit: Yes Status: Acute It appears patient may have a UTI - treated with fosfomycin today while cultured for further direction. Will plan to decrease Seroquel to 25mg PO q HS, continue Depakote and plan for trough level at 1600 on 04/22. Hospital Course Summary Disclaimer: The visit summary below is not to be considered part of the above Progress Note. 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 - Agree with admission to [facility] for further psychiatric evaluation and treatment by Dr. Ellison. Hospitalist service consulted for medical management. - Provide safe and supportive environment. - Labs obtained in ED prior to admission were unremarkable. Will monitor periodically throughout admission. - History of hyponatremia with seizure on 03/15/17 resulting in acute admission at [facility] with complete resolution. - CXR on admission revealed no acute cardiopulmonary changes. - Nursing reports recent fall during acute hospitalization at [place]. Consider CT head for further evaluation of acute behavioral changes in light of possible head injury as well as history of breast CA. - Family reports increased behaviors and agitation with Haldol and Xanax. PRN medications per Dr. Ellison. - Monitor closely as she is a high elopement risk. Hypertension with mitral valve and tricuspid valve prolapse. - Elevated blood pressure noted on admission (162/79). Monitor blood pressure closely. - Metoprolol 25mg BID initiated during acute hospitalization in [place] from 03/15-03/17/17. Monitor heart rate closely as well. - Given multivalve prolapse and hypertension, will initiate ASA daily for CAD prophylaxis. - 2+ pedal edema noted to bilateral lower extremities. Family reports patient has PRN medication for swelling but is unsure of name of drug. Will continue to monitor edema closely as well as daily weights and respiratory function. - TREMAYNE hose and elevation as tolerated. Constipation. - Encourage bowel motivation with daily miralax and senna plus PRN. Urinary retention requiring self straight cancerization twice a day with history of UTI. - UA in ED revealed 10-20 WBC with >50 squamous epithelial cells and 2+ bacteria. Patient is afebrile, asymptomatic and normal WBC. UA culture pending. - Straight cath at 0800 and 2000 daily. Bladder scan as indicated for concerns of additional retention. - Repeat UA given concern for contamination of initial sample. History of seizure secondary to hyponatremia - 03/15/17. - History consistent with unintentional dilutional hyponatremia resulting in seizure. Monitor electrolytes closely. History of breast cancer with lumpectomy, chemotherapy and radiation - 2002. Plan - 04/14/17 - Patient continues to be hyperverbal with tangental thoughts. Continue psychiatric care per Dr. Ellison and team. Provide safe and supportive environment. - CT head was obtained and negative for acute findings. - UA in ED revealed 10-20 WBC with >50 squamous epithelial cells and 2+ bacteria. Patient is afebrile, asymptomatic and normal WBC. UA culture showing early growth. Repeat UA revealed 5-10 WBC and trace bacteria. - Will initiate Keflex 500mg QID for antimicrobial coverage of urinary pathogens while awaiting culture results given persistent delirium. - Straight cath at 0800 and 2000 daily. Bladder scan as indicated for concerns of additional retention. 04/14/17 Psych: Decreased temazepam to 15mg PO q HS. Increased melatonin to 10mg PO q HS. Started Rozerem 8mg PO q HS to target insomnia (obtained informed consent from DPOA prior). Continue Seroquel 100mg PO q HS, monitoring for akathisia. 04/15/17 Psych: Discontinue temazepam, start lorazepam 1mg PO q HS to target insomnia with plan to taper/discontinue in the event that benzo is disinhibiting patient. Concern that Seroquel may be causing akathisia - consider whether mood stabilizer may be more useful. 04/16/17 Psych: MRI done today. Will encourage nursing staff to use PRN Ativan during day if needed. Will decrease Seroquel to 75mg PO q HS tonight; monitor for any improvement in restlessness 04/17/17 Psych: Pt remains tangential and hyperverbal but no behaviors noted. Continue current care. 04/18/17 Psych: Hyperverbal and tangential at times. Will start Depakote 250mg PO BID. 04/19/17 Psych: Will switch/increase Depakote to Depakote ER 750mg PO q HS to target insomnia, decrease Seroquel to 50mg PO q HS in the event it is contributing to restlessness/akathisia. Patient continues to appear quite manic. 04/19/17 Hospitalist: Discussed case with Dr. Ellsi. Given she is not on metoprolol for CHF, it is not unreasonable to switch patient to atenolol. Equivalent dosing with current dose of metoprolol is Atenolol 25 mg daily. (Pharmacy confirmed.) Reviewed her urine culture which showed bacterial karma consistent with contamination. Antibiotics not indicated. Cephalexin was discontinued when culture was resulted. She had a straight catheter urinalysis the following day which was negative. If daughter feels patient is having urinary symptoms, okay to check straight cath urinalysis 04/20/17 Psych: It appears patient may have a UTI - treated with fosfomycin today while cultured for further direction. Will plan to decrease Seroquel to 25mg PO q HS, continue Depakote and plan for trough level at 1600 on 04/22.
[2017-04-20] MEDS: RAMELTEON 8 MG PO SCH (20:16)
[2017-04-20] MEDS: LORazepam 1 MG TABLET PO SCH (20:16)
[2017-04-20] MEDS ORDERED: QUETIAPINE 25 MG TABLET PO SCH (21:00)
[2017-04-20] MEDS: LORazepam 0.5 MG TABLET PO PRN (23:27)
[2017-04-21] MEDS: POLYETHYL GLYCOL 3350 17gm PACKET PO SCH (09:54)
[2017-04-21] MEDS: ATENOLOL 25 MG TABLET PO SCH (10:29)
[2017-04-21] MEDS: ASPIRIN 325 MG TABLET PO SCH (10:29)
--- NOTE | 2017-04-21 18:09 | Progress Note ---
- Date 04/21/17 Subjective: Patient was seen sitting in the TV room this afternoon. She reports that she thinks she is "supposed to feel bad," but she actually feels well. She feels like her mind is clearer. She now realizes that she is not in [place] and tells me she is in [place] in [place]. She wonders if she had a heart transplant. She had low BP and fast pulse this morning and EKG showed sinus tach. Her BP increased without intervention and her atenolol was given with improvement in her tachycardia. She notes that she's "had my blood pressure taken all day long. That's all they've done." Objective Vital signs: Temperature 98.8 F 04/21/17 15:41 Pulse Rate 103 H 04/21/17 15:41 Respiratory Rate 18 04/21/17 15:41 Blood Pressure 146/70 H 04/21/17 15:41 Pulse Oximetry 98 04/21/17 15:41 Height/Weight/BMI: Height 1.55 m Weight 66.6 kg Body Mass Index 28.5 - Constitutional Present: no acute distress, well nourished, well developed - Routine HEENT Exam Head: Present: normocephalic, atraumatic - Routine Respiratory Exam Present: CTA bilaterally. Absent: wheezes - Routine Cardiovascular Exam Present: RRR, no murmur - Routine Abdominal Exam Present: soft, non distended, non tender - Routine Extremities Exam Present: no edema, normal capillary refill Comments: wearing compression hose - Routine Skin Exam Present: dry, warm - Routine Neurological Exam Present: alert - Routine Lymphatic Exam Lymphatic: Absent: adenopathy - Routine Psychiatric Exam Present: normal affect, cooperative Results - Labs CBC & Chem 7: 04/20/17 09:21 04/20/17 09:21 Microbiology Results: Microbiology 04/19/17 21:00 Urine, Cath Straight Urine Culture - Final Gram Positive Nima Assessment and Plan (1) Dementia with behavioral disturbance Current visit: Yes Status: Acute (2) Acute psychosis Problem details: R/O Mood disorder R/O Delirium due to unknown etiology R/O Major neurocognitive disorder Current visit: Yes Status: Acute Assessment and Plan: Assessment Sinus tachycardia - not POA (following recent change in beta ana) Acute psychosis with restless and paranoia. Dementia with acute behavioral disturbance. Hypertension. Mitral valve and tricuspid valve prolapse. Constipation. Urinary retention requiring self straight catheterization twice a day. History of breast cancer with lumpectomy, chemotherapy and radiation - 2002. History of seizure secondary to hyponatremia - 03/15/17. History of UTI. Plan After her morning atenolol was given, her tachycardia improved. She was switched from metoprolol to atenolol yesterday at the request of her daughter in the event the metoprolol was contributing to her delirium. May need to increase dose. Will follow closely. Her mental status does seem improved today. UTI treated with fosfomycin yesterday. Urine culture grew out gram + rods - no further ID or susceptibility performed as this is likely to be contaminant. Nurse's notes, psychiatric notes, labs from yesterday, and vital signs reviewed. - Physician Narrative Narrative: Date: 04/21/17 Time: 1806 Hospital Course Summary Disclaimer: The visit summary below is not to be considered part of the above Progress Note. 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 - Agree with admission to [facility] for further psychiatric evaluation and treatment by Dr. Ellison. Hospitalist service consulted for medical management. - Provide safe and supportive environment. - Labs obtained in ED prior to admission were unremarkable. Will monitor periodically throughout admission. - History of hyponatremia with seizure on 03/15/17 resulting in acute admission at [facility] with complete resolution. - CXR on admission revealed no acute cardiopulmonary changes. - Nursing reports recent fall during acute hospitalization at [place]. Consider CT head for further evaluation of acute behavioral changes in light of possible head injury as well as history of breast CA. - Family reports increased behaviors and agitation with Haldol and Xanax. PRN medications per Dr. Ellison. - Monitor closely as she is a high elopement risk. Hypertension with mitral valve and tricuspid valve prolapse. - Elevated blood pressure noted on admission (162/79). Monitor blood pressure closely. - Metoprolol 25mg BID initiated during acute hospitalization in [place] from 03/15-03/17/17. Monitor heart rate closely as well. - Given multivalve prolapse and hypertension, will initiate ASA daily for CAD prophylaxis. - 2+ pedal edema noted to bilateral lower extremities. Family reports patient has PRN medication for swelling but is unsure of name of drug. Will continue to monitor edema closely as well as daily weights and respiratory function. - TREMAYNE hose and elevation as tolerated. Constipation. - Encourage bowel motivation with daily miralax and senna plus PRN. Urinary retention requiring self straight cancerization twice a day with history of UTI. - UA in ED revealed 10-20 WBC with >50 squamous epithelial cells and 2+ bacteria. Patient is afebrile, asymptomatic and normal WBC. UA culture pending. - Straight cath at 0800 and 2000 daily. Bladder scan as indicated for concerns of additional retention. - Repeat UA given concern for contamination of initial sample. History of seizure secondary to hyponatremia - 03/15/17. - History consistent with unintentional dilutional hyponatremia resulting in seizure. Monitor electrolytes closely. History of breast cancer with lumpectomy, chemotherapy and radiation - 2002. Plan - 04/14/17 - Patient continues to be hyperverbal with tangental thoughts. Continue psychiatric care per Dr. Ellison and team. Provide safe and supportive environment. - CT head was obtained and negative for acute findings. - UA in ED revealed 10-20 WBC with >50 squamous epithelial cells and 2+ bacteria. Patient is afebrile, asymptomatic and normal WBC. UA culture showing early growth. Repeat UA revealed 5-10 WBC and trace bacteria. - Will initiate Keflex 500mg QID for antimicrobial coverage of urinary pathogens while awaiting culture results given persistent delirium. - Straight cath at 0800 and 2000 daily. Bladder scan as indicated for concerns of additional retention. 04/14/17 Psych: Decreased temazepam to 15mg PO q HS. Increased melatonin to 10mg PO q HS. Started Rozerem 8mg PO q HS to target insomnia (obtained informed consent from DPOA prior). Continue Seroquel 100mg PO q HS, monitoring for akathisia. 04/15/17 Psych: Discontinue temazepam, start lorazepam 1mg PO q HS to target insomnia with plan to taper/discontinue in the event that benzo is disinhibiting patient. Concern that Seroquel may be causing akathisia - consider whether mood stabilizer may be more useful. 04/16/17 Psych: MRI done today. Will encourage nursing staff to use PRN Ativan during day if needed. Will decrease Seroquel to 75mg PO q HS tonight; monitor for any improvement in restlessness 04/17/17 Psych: Pt remains tangential and hyperverbal but no behaviors noted. Continue current care. 04/18/17 Psych: Hyperverbal and tangential at times. Will start Depakote 250mg PO BID. 04/19/17 Psych: Will switch/increase Depakote to Depakote ER 750mg PO q HS to target insomnia, decrease Seroquel to 50mg PO q HS in the event it is contributing to restlessness/akathisia. Patient continues to appear quite manic. 04/19/17 Hospitalist: Discussed case with Dr. Ellis. Given she is not on metoprolol for CHF, it is not unreasonable to switch patient to atenolol. Equivalent dosing with current dose of metoprolol is Atenolol 25 mg daily. (Pharmacy confirmed.) Reviewed her urine culture which showed bacterial karma consistent with contamination. Antibiotics not indicated. Cephalexin was discontinued when culture was resulted. She had a straight catheter urinalysis the following day which was negative. If daughter feels patient is having urinary symptoms, okay to check straight cath urinalysis 04/20/17 Psych: It appears patient may have a UTI - treated with fosfomycin today while cultured for further direction. Will plan to decrease Seroquel to 25mg PO q HS, continue Depakote and plan for trough level at 1600 on 04/22.
--- NOTE | 2017-04-21 19:18 | Neuropsych Progress Note ---
[facility] Subjective Date: 04/21/17 - Sujective/Severity of Illness Medications: Acetaminophen (Tylenol) 1,000 mg PO PRN PRN PRN Reason: Pain Last Admin: 04/19/17 00:38 Dose: 1,000 mg Aspirin (Asa) 325 mg PO DAILY [facility] Last Admin: 04/21/17 10:29 Dose: 325 mg Atenolol (Tenormin) 25 mg PO DAILY [facility] Last Admin: 04/21/17 10:29 Dose: 25 mg Bisacodyl (Dulcolax) 10 mg RECTALLY DAILY PRN PRN Reason: Constipation Last Admin: 04/14/17 06:26 Dose: 10 mg Divalproex Sodium (Depakote Er) [address] [facility] Last Admin: 04/20/17 20:15 Dose: 750 mg Lorazepam (Ativan) 0.5 mg PO Q6H PRN PRN Reason: Extreme agitation Last Admin: 04/20/17 23:27 Dose: 0.5 mg Lorazepam (Ativan Inj) 0.5 mg IM Q6H PRN PRN Reason: Extreme agitation Lorazepam (Ativan) [address] [facility] Last Admin: 04/20/17 20:16 Dose: 1 mg Magnesium Hydroxide (Mom) 30 ml PO DAILY PRN PRN Reason: Constipation Last Admin: 04/18/17 20:18 Dose: 30 ml Pom Roserem 8mg (Tablet) [address] [facility] Last Admin: 04/20/17 20:16 Dose: 1 each Polyethylene Glycol (Miralax) 17 gm PO DAILY [facility] Last Admin: 04/21/17 09:54 Dose: Not Given Quetiapine Fumarate (Seroquel) [address] [facility] Last Admin: 04/20/17 20:14 Dose: 25 mg Senna/Docusate Sodium (Senna Plus Tablet) 1 tab PO BID PRN PRN Reason: Constipation Last Admin: 04/19/17 08:17 Dose: 1 tab Sodium Chloride (Iv Flush) 10 ml IV PRN PRN PRN Reason: Flushing Last Admin: 04/16/17 12:05 Dose: 10 ml Subjective: Patient seen and chart reviewed. Case discussed with treatment team. On interview, patient is less hyperverbal though still tangential. She is much more oriented (person, month and year, place, situation). She did have an incident earlier today where she threw headphones at SW out of frustration - trigger for this was not clear. Also had some mild paranoia earlier in the day. Patient denies any SI, HI or AVH. Patient has been adherent with medications. Patient slept only 3.75 hours interrupted overnight. VSS. Appetite fair. Psychotropic PRNs required in the past 24 hours: None. Family meeting held with patient's and daughter/HEMANT Cervantes in regards to diagnosis, progress, treatment plan. Patient has had multiple possible contributing factors that may have led to delirium: - Benadryl, kava tea, hyponatremia, seizure prior to hospitalization at [facility] - UTIs treated with first ciprofloxacin then Levaquin - Temazepam, Tamiflu, metoprolol It is believed we have accounted for all of these factors and hope to see an improvement in functioning soon. Start Time: 13:20 Stop Time: 14:00 Care: >50% of this visit spent in counseling/coordination care. (family meeting as above) Mental Status Exam Vitals: Last Vital Signs Temp 98.8 F 04/21/17 15:41 Pulse 103 H 04/21/17 15:41 Resp 18 04/21/17 15:41 BP 146/70 H 04/21/17 15:41 Pulse Ox 98 04/21/17 15:41 Height: 1.55 m Weight: 66.814 kg - Mental Status Exam Muscle Strength/Tone: Normal Dressing: Casual Grooming: Good Attitude: Cooperative Motor Activity: Normal Eye Contact: Good Speech: Normal Volume: Normal Rhythm: Appropriate Rhythm Orientation: Oriented to person, Oriented to place, Oriented to time (month and year only) Mood: Neutral (labile affect) Rate of Thoughts: Appropriate Rate Thought Organization: Tangential, Confused Associations: Flight of Ideas, Loose-associations, Illogical Abstract Reasoning: Poor abstract reasoning Thought Content: Normal (other than confusion) Perception/Psychotic: Hx psychosis, not current Language: Naming Intact Fund of Knowledge: Other (Decreased from baseline (above average pre-morbidly)) Memory: Poor-immediate, Poor-recent Suicidal Ideation: Denies Homicidal Ideation: Denies Insight: Impaired Judgement: Impaired Impulse Control: Poor - Laboratory Result Diagrams: 04/20/17 09:21 04/20/17 09:21 Laboratory Results - last 24 hr 04/21/17 08:48 Glucometer 94 Assessment and Plan (1) Acute psychosis Problem details: R/O Mood disorder R/O Delirium due to unknown etiology R/O Major neurocognitive disorder Current visit: Yes Status: Acute It is believed delirium is most likely cause of patient's symptoms. For today, will discontinue Seroquel and schedule Ripserdal 0.5mg PO BID. Plan for VPA level and labs tomorrow at 1800. Monitor mood, behavior and response to treatment. Hospital Course Summary Disclaimer: The visit summary below is not to be considered part of the above Progress Note. 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 - Agree with admission to [facility] for further psychiatric evaluation and treatment by Dr. Ellison. Hospitalist service consulted for medical management. - Provide safe and supportive environment. - Labs obtained in ED prior to admission were unremarkable. Will monitor periodically throughout admission. - History of hyponatremia with seizure on 03/15/17 resulting in acute admission at [facility] with complete resolution. - CXR on admission revealed no acute cardiopulmonary changes. - Nursing reports recent fall during acute hospitalization at [place]. Consider CT head for further evaluation of acute behavioral changes in light of possible head injury as well as history of breast CA. - Family reports increased behaviors and agitation with Haldol and Xanax. PRN medications per Dr. Ellison. - Monitor closely as she is a high elopement risk. Hypertension with mitral valve and tricuspid valve prolapse. - Elevated blood pressure noted on admission (162/79). Monitor blood pressure closely. - Metoprolol 25mg BID initiated during acute hospitalization in [place] from 03/15-03/17/17. Monitor heart rate closely as well. - Given multivalve prolapse and hypertension, will initiate ASA daily for CAD prophylaxis. - 2+ pedal edema noted to bilateral lower extremities. Family reports patient has PRN medication for swelling but is unsure of name of drug. Will continue to monitor edema closely as well as daily weights and respiratory function. - TREMAYNE hose and elevation as tolerated. Constipation. - Encourage bowel motivation with daily miralax and senna plus PRN. Urinary retention requiring self straight cancerization twice a day with history of UTI. - UA in ED revealed 10-20 WBC with >50 squamous epithelial cells and 2+ bacteria. Patient is afebrile, asymptomatic and normal WBC. UA culture pending. - Straight cath at 0800 and 2000 daily. Bladder scan as indicated for concerns of additional retention. - Repeat UA given concern for contamination of initial sample. History of seizure secondary to hyponatremia - 03/15/17. - History consistent with unintentional dilutional hyponatremia resulting in seizure. Monitor electrolytes closely. History of breast cancer with lumpectomy, chemotherapy and radiation - 2002. Plan - 04/14/17 - Patient continues to be hyperverbal with tangental thoughts. Continue psychiatric care per Dr. Ellison and team. Provide safe and supportive environment. - CT head was obtained and negative for acute findings. - UA in ED revealed 10-20 WBC with >50 squamous epithelial cells and 2+ bacteria. Patient is afebrile, asymptomatic and normal WBC. UA culture showing early growth. Repeat UA revealed 5-10 WBC and trace bacteria. - Will initiate Keflex 500mg QID for antimicrobial coverage of urinary pathogens while awaiting culture results given persistent delirium. - Straight cath at 0800 and 2000 daily. Bladder scan as indicated for concerns of additional retention. 04/14/17 Psych: Decreased temazepam to 15mg PO q HS. Increased melatonin to 10mg PO q HS. Started Rozerem 8mg PO q HS to target insomnia (obtained informed consent from DPOA prior). Continue Seroquel 100mg PO q HS, monitoring for akathisia. 04/15/17 Psych: Discontinue temazepam, start lorazepam 1mg PO q HS to target insomnia with plan to taper/discontinue in the event that benzo is disinhibiting patient. Concern that Seroquel may be causing akathisia - consider whether mood stabilizer may be more useful. 04/16/17 Psych: MRI done today. Will encourage nursing staff to use PRN Ativan during day if needed. Will decrease Seroquel to 75mg PO q HS tonight; monitor for any improvement in restlessness 04/17/17 Psych: Pt remains tangential and hyperverbal but no behaviors noted. Continue current care. 04/18/17 Psych: Hyperverbal and tangential at times. Will start Depakote 250mg PO BID. 04/19/17 Psych: Will switch/increase Depakote to Depakote ER 750mg PO q HS to target insomnia, decrease Seroquel to 50mg PO q HS in the event it is contributing to restlessness/akathisia. Patient continues to appear quite manic. 04/19/17 Hospitalist: Discussed case with Dr. Ellis. Given she is not on metoprolol for CHF, it is not unreasonable to switch patient to atenolol. Equivalent dosing with current dose of metoprolol is Atenolol 25 mg daily. (Pharmacy confirmed.) Reviewed her urine culture which showed bacterial karma consistent with contamination. Antibiotics not indicated. Cephalexin was discontinued when culture was resulted. She had a straight catheter urinalysis the following day which was negative. If daughter feels patient is having urinary symptoms, okay to check straight cath urinalysis 04/20/17 Psych: It appears patient may have a UTI - treated with fosfomycin today while cultured for further direction. Will plan to decrease Seroquel to 25mg PO q HS, continue Depakote and plan for trough level at 1600 on 04/22. 04/21/17 Psych: It is believed delirium is most likely cause of patient's symptoms. For today, will discontinue Seroquel and schedule Ripserdal 0.5mg PO BID. Plan for VPA level and labs tomorrow at 1800. Monitor mood, behavior and response to treatment.
[2017-04-21] MEDS: LORazepam 1 MG TABLET PO SCH (20:32)
[2017-04-21] MEDS: RAMELTEON 8 MG PO SCH (20:32)
[2017-04-21] MEDS: RisperiDONE 0.5 MG TABLET PO SCH (20:32)
[2017-04-22] MEDS: ASPIRIN 325 MG TABLET PO SCH (08:40)
[2017-04-22] MEDS: ATENOLOL 25 MG TABLET PO SCH (08:40)
[2017-04-22] MEDS: POLYETHYL GLYCOL 3350 17gm PACKET PO SCH (08:40)
[2017-04-22] MEDS: RisperiDONE 0.5 MG TABLET PO SCH ×2 (08:40→20:27)
--- NOTE | 2017-04-22 16:01 | Neuropsych Progress Note ---
[facility] Subjective Date: 04/22/17 - Sujective/Severity of Illness Medications: Acetaminophen (Tylenol) 1,000 mg PO PRN PRN PRN Reason: Pain Last Admin: 04/19/17 00:38 Dose: 1,000 mg Aspirin (Asa) 325 mg PO DAILY [facility] Last Admin: 04/22/17 08:40 Dose: 325 mg Atenolol (Tenormin) 25 mg PO DAILY [facility] Last Admin: 04/22/17 08:40 Dose: 25 mg Bisacodyl (Dulcolax) 10 mg RECTALLY DAILY PRN PRN Reason: Constipation Last Admin: 04/14/17 06:26 Dose: 10 mg Divalproex Sodium (Depakote Er) 750 mg PO [facility] Last Admin: 04/21/17 20:31 Dose: 750 mg Lorazepam (Ativan) 0.5 mg PO Q6H PRN PRN Reason: Extreme agitation Last Admin: 04/20/17 23:27 Dose: 0.5 mg Lorazepam (Ativan Inj) 0.5 mg IM Q6H PRN PRN Reason: Extreme agitation Lorazepam (Ativan) 1 mg PO [facility] Last Admin: 04/21/17 20:32 Dose: 1 mg Magnesium Hydroxide (Mom) 30 ml PO DAILY PRN PRN Reason: Constipation Last Admin: 04/18/17 20:18 Dose: 30 ml Pom Roserem 8mg (Tablet) 1 each PO [facility] Last Admin: 04/21/17 20:32 Dose: 1 each Polyethylene Glycol (Miralax) 17 gm PO DAILY [facility] Last Admin: 04/22/17 08:40 Dose: Not Given Risperidone (Risperdal) 0.5 mg PO BID [facility] Last Admin: 04/22/17 08:40 Dose: 0.5 mg Senna/Docusate Sodium (Senna Plus Tablet) 1 tab PO BID PRN PRN Reason: Constipation Last Admin: 04/19/17 08:17 Dose: 1 tab Sodium Chloride (Iv Flush) 10 ml IV PRN PRN PRN Reason: Flushing Last Admin: 04/16/17 12:05 Dose: 10 ml Subjective: Patient seen and chart reviewed. Case discussed with treatment team. Patient is sleeping during rounds; MSE below based in part on my last interaction with her and staff report. Staff/family report that patient has slowed down and has more clarity today. She had 2 outbursts of crying that were short-lived yesterday. No further aggression. Patient has repeatedly denied any SI, HI or AVH. Patient has been adherent with medications. Patient slept 6.5 hours overnight. VSS. Appetite fair. Psychotropic PRNs required in the past 24 hours: None. Again talked with daughter who felt patient continues to improve today. Start Time: 13:20 Stop Time: 13:40 Mental Status Exam Vitals: Last Vital Signs Temp 98.2 F 04/22/17 08:00 Pulse 102 H 04/22/17 08:00 Resp 16 04/22/17 08:00 BP 145/78 H 04/22/17 08:00 Pulse Ox 98 04/22/17 08:00 Height: 1.55 m Weight: 66.814 kg - Mental Status Exam Muscle Strength/Tone: Normal Dressing: Casual Grooming: Good Attitude: Cooperative Motor Activity: Normal Eye Contact: Good Speech: Normal Volume: Normal Rhythm: Appropriate Rhythm Orientation: Oriented to person, Oriented to place, Oriented to time (month and year only) Mood: Neutral (labile affect - improving) Rate of Thoughts: Appropriate Rate Thought Organization: Tangential, Confused Associations: Flight of Ideas, Loose-associations, Illogical Abstract Reasoning: Poor abstract reasoning Thought Content: Normal (other than confusion) Perception/Psychotic: Hx psychosis, not current Language: Naming Intact Fund of Knowledge: Other (Decreased from baseline (above average pre-morbidly)) Memory: Poor-immediate, Poor-recent Suicidal Ideation: Denies Homicidal Ideation: Denies Insight: Impaired Judgement: Impaired Impulse Control: Poor - Laboratory Result Diagrams: 04/20/17 09:21 04/20/17 09:21 Assessment and Plan (1) Acute psychosis Problem details: R/O Delirium due to multiple etiologies (primarily medication- induced, may also be related to UTI) R/O Major neurocognitive disorder Current visit: Yes Status: Acute Plan for labs today: Trough VPA level, CBC, CMP, ammonia level - and adjust accordingly. Patient seems to be responding well to Risperdal. Hospital Course Summary Disclaimer: The visit summary below is not to be considered part of the above Progress Note. 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 - Agree with admission to [facility] for further psychiatric evaluation and treatment by Dr. Ellison. Hospitalist service consulted for medical management. - Provide safe and supportive environment. - Labs obtained in ED prior to admission were unremarkable. Will monitor periodically throughout admission. - History of hyponatremia with seizure on 03/15/17 resulting in acute admission at [facility] with complete resolution. - CXR on admission revealed no acute cardiopulmonary changes. - Nursing reports recent fall during acute hospitalization at [place]. Consider CT head for further evaluation of acute behavioral changes in light of possible head injury as well as history of breast CA. - Family reports increased behaviors and agitation with Haldol and Xanax. PRN medications per Dr. Ellison. - Monitor closely as she is a high elopement risk. Hypertension with mitral valve and tricuspid valve prolapse. - Elevated blood pressure noted on admission (162/79). Monitor blood pressure closely. - Metoprolol 25mg BID initiated during acute hospitalization in [place] from 03/15-03/17/17. Monitor heart rate closely as well. - Given multivalve prolapse and hypertension, will initiate ASA daily for CAD prophylaxis. - 2+ pedal edema noted to bilateral lower extremities. Family reports patient has PRN medication for swelling but is unsure of name of drug. Will continue to monitor edema closely as well as daily weights and respiratory function. - TREMAYNE hose and elevation as tolerated. Constipation. - Encourage bowel motivation with daily miralax and senna plus PRN. Urinary retention requiring self straight cancerization twice a day with history of UTI. - UA in ED revealed 10-20 WBC with >50 squamous epithelial cells and 2+ bacteria. Patient is afebrile, asymptomatic and normal WBC. UA culture pending. - Straight cath at 0800 and 2000 daily. Bladder scan as indicated for concerns of additional retention. - Repeat UA given concern for contamination of initial sample. History of seizure secondary to hyponatremia - 03/15/17. - History consistent with unintentional dilutional hyponatremia resulting in seizure. Monitor electrolytes closely. History of breast cancer with lumpectomy, chemotherapy and radiation - 2002. Plan - 04/14/17 - Patient continues to be hyperverbal with tangental thoughts. Continue psychiatric care per Dr. Ellison and team. Provide safe and supportive environment. - CT head was obtained and negative for acute findings. - UA in ED revealed 10-20 WBC with >50 squamous epithelial cells and 2+ bacteria. Patient is afebrile, asymptomatic and normal WBC. UA culture showing early growth. Repeat UA revealed 5-10 WBC and trace bacteria. - Will initiate Keflex 500mg QID for antimicrobial coverage of urinary pathogens while awaiting culture results given persistent delirium. - Straight cath at 0800 and 2000 daily. Bladder scan as indicated for concerns of additional retention. 04/14/17 Psych: Decreased temazepam to 15mg PO q HS. Increased melatonin to 10mg PO q HS. Started Rozerem 8mg PO q HS to target insomnia (obtained informed consent from DPOA prior). Continue Seroquel 100mg PO q HS, monitoring for akathisia. 04/15/17 Psych: Discontinue temazepam, start lorazepam 1mg PO q HS to target insomnia with plan to taper/discontinue in the event that benzo is disinhibiting patient. Concern that Seroquel may be causing akathisia - consider whether mood stabilizer may be more useful. 04/16/17 Psych: MRI done today. Will encourage nursing staff to use PRN Ativan during day if needed. Will decrease Seroquel to 75mg PO q HS tonight; monitor for any improvement in restlessness 04/17/17 Psych: Pt remains tangential and hyperverbal but no behaviors noted. Continue current care. 04/18/17 Psych: Hyperverbal and tangential at times. Will start Depakote 250mg PO BID. 04/19/17 Psych: Will switch/increase Depakote to Depakote ER 750mg PO q HS to target insomnia, decrease Seroquel to 50mg PO q HS in the event it is contributing to restlessness/akathisia. Patient continues to appear quite manic. 04/19/17 Hospitalist: Discussed case with Dr. Ellis. Given she is not on metoprolol for CHF, it is not unreasonable to switch patient to atenolol. Equivalent dosing with current dose of metoprolol is Atenolol 25 mg daily. (Pharmacy confirmed.) Reviewed her urine culture which showed bacterial karma consistent with contamination. Antibiotics not indicated. Cephalexin was discontinued when culture was resulted. She had a straight catheter urinalysis the following day which was negative. If daughter feels patient is having urinary symptoms, okay to check straight cath urinalysis 04/20/17 Psych: It appears patient may have a UTI - treated with fosfomycin today while cultured for further direction. Will plan to decrease Seroquel to 25mg PO q HS, continue Depakote and plan for trough level at 1600 on 04/22. 04/21/17 Psych: It is believed delirium is most likely cause of patient's symptoms. For today, will discontinue Seroquel and schedule Ripserdal 0.5mg PO BID. Plan for VPA level and labs tomorrow at 1800. Monitor mood, behavior and response to treatment. 04/22/17 Psych: Plan for labs today: Trough VPA level, CBC, CMP, ammonia level - and adjust accordingly. Patient seems to be responding well to Risperdal.
[2017-04-22] MEDS: LORazepam 1 MG TABLET PO SCH (20:27)
[2017-04-22] MEDS: RAMELTEON 8 MG PO SCH (20:28)
[2017-04-23] MEDS: ASPIRIN 325 MG TABLET PO SCH (08:11)
[2017-04-23] MEDS: ATENOLOL 25 MG TABLET PO SCH (08:11)
[2017-04-23] MEDS: POLYETHYL GLYCOL 3350 17gm PACKET PO SCH (08:12)
[2017-04-23] MEDS: RisperiDONE 0.5 MG TABLET PO SCH ×2 (09:25→21:35)
--- NOTE | 2017-04-23 13:22 | Neuropsych Progress Note ---
[facility] Subjective Date: 04/23/17 - Sujective/Severity of Illness Medications: Acetaminophen (Tylenol) 1,000 mg PO PRN PRN PRN Reason: Pain Last Admin: 04/19/17 00:38 Dose: 1,000 mg Aspirin (Asa) 325 mg PO DAILY [facility] Last Admin: 04/23/17 08:11 Dose: 325 mg Atenolol (Tenormin) 25 mg PO DAILY [facility] Last Admin: 04/23/17 08:11 Dose: 25 mg Bisacodyl (Dulcolax) 10 mg RECTALLY DAILY PRN PRN Reason: Constipation Last Admin: 04/14/17 06:26 Dose: 10 mg Divalproex Sodium (Depakote Er) 750 mg PO [facility] Last Admin: 04/22/17 20:28 Dose: 750 mg Lorazepam (Ativan) 0.5 mg PO Q6H PRN PRN Reason: Extreme agitation Last Admin: 04/20/17 23:27 Dose: 0.5 mg Lorazepam (Ativan Inj) 0.5 mg IM Q6H PRN PRN Reason: Extreme agitation Lorazepam (Ativan) 1 mg PO [facility] Last Admin: 04/22/17 20:27 Dose: 1 mg Magnesium Hydroxide (Mom) 30 ml PO DAILY PRN PRN Reason: Constipation Last Admin: 04/18/17 20:18 Dose: 30 ml Pom Roserem 8mg (Tablet) 1 each PO [facility] Last Admin: 04/22/17 20:28 Dose: 1 each Polyethylene Glycol (Miralax) 17 gm PO DAILY [facility] Last Admin: 04/23/17 08:12 Dose: Not Given Risperidone (Risperdal) 0.5 mg PO BID [facility] Last Admin: 04/23/17 09:25 Dose: 0.5 mg Senna/Docusate Sodium (Senna Plus Tablet) 1 tab PO BID PRN PRN Reason: Constipation Last Admin: 04/19/17 08:17 Dose: 1 tab Sodium Chloride (Iv Flush) 10 ml IV PRN PRN PRN Reason: Flushing Last Admin: 04/16/17 12:05 Dose: 10 ml Subjective: Patient seen and chart reviewed. Case discussed with treatment team. Patient is seen in her room and reports her mood is good and she feels well physically. She is significantly more organized and is not hyperverbal today. She is trying to make sense of everything that has happened since initial hospitalization. No paranoia noted. Patient has repeatedly denied any SI, HI or AVH. Patient has been adherent with medications and has not had any behavioral difficulties in past 24 hours. Patient slept 8.5 hours overnight. VSS. Appetite fair. Psychotropic PRNs required in the past 24 hours: None. Start Time: 09:20 Stop Time: 09:40 Mental Status Exam Vitals: Last Vital Signs Temp 97.0 F 04/23/17 08:00 Pulse 112 H 04/23/17 08:00 Resp 16 04/23/17 08:00 BP 148/72 H 04/23/17 08:00 Pulse Ox 96 04/23/17 08:00 Height: 1.55 m Weight: 66.814 kg - Mental Status Exam Muscle Strength/Tone: Normal Dressing: Casual Grooming: Good Attitude: Cooperative Motor Activity: Normal Eye Contact: Good Speech: Normal Volume: Normal Rhythm: Appropriate Rhythm Orientation: Disoriented to time ("March 2017"), Disoriented to place ( "[place]"), Oriented to person Mood: Euthymic Affect: Relaxed Rate of Thoughts: Appropriate Rate Thought Organization: Organized Associations: Intact Abstract Reasoning: Poor abstract reasoning Thought Content: Normal Perception/Psychotic: Hx psychosis, not current Language: Naming Intact Fund of Knowledge: Other (Decreased from baseline (above average pre-morbidly)) Memory: Poor-immediate, Poor-recent Suicidal Ideation: Denies Homicidal Ideation: Denies Insight: Impaired Judgement: Impaired Impulse Control: Good - Laboratory Result Diagrams: 04/22/17 18:56 04/22/17 18:56 Laboratory Results - last 24 hr 04/22/17 04/22/17 18:56 18:56 WBC 6.2 RBC 4.40 Hgb 13.6 Hct 41.7 MCV 94.8 MCH 30.9 MCHC 32.6 RDW Std Deviation 41.7 Plt Count 212 MPV 9.4 Immature Gran % (Auto) 0.2 Neut % (Auto) 56.2 Lymph % (Auto) 36.4 [place] % (Auto) 5.5 Eos % (Auto) 1.0 Baso % (Auto) 0.7 Neut # (Auto) 3.5 Lymph # (Auto) 2.2 [place] # (Auto) 0.3 Eos # (Auto) 0.1 Baso # (Auto) 0.0 Abs Immat Gran (auto) 0.01 Turbidity < 20 Sodium 142 Potassium 4.0 Chloride 102 Carbon Dioxide 30 Anion Gap 10 BUN 20.0 H Creatinine 0.6 L GFR Calculation 98 BUN/Creatinine Ratio 33 H Glucose 112 H Calculated Osmolality 277 Calcium 10.0 Total Bilirubin 0.30 Conjugated Bilirubin 0.00 Unconjugated Bilirubin 0.00 Icterus Index < 2 AST 34 ALT 61 H Alkaline Phosphatase 88 Ammonia < 9 L Total Protein 7.8 Albumin 4.3 Globulin 3.5 Albumin/Globulin Ratio 1.2 Specimen Hemolysis < 15 Valproic Acid 62.1 Assessment and Plan (1) Delirium due to multiple etiologies Current visit: Yes Status: Resolved (2) 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 Mitral valve and tricuspid valve prolapse. Constipation. Urinary retention requiring self straight catheterization twice a day. History of breast cancer with lumpectomy, chemotherapy and radiation - 2002. History of seizure secondary to hyponatremia - 03/15/17. History of UTI. Plan: Continue current care, deferring to hospitalist in regards to recent tachycardia. Family and CM are discussing discharge planning (home with supervision vs. placement in LTC facility). Hospital Course Summary Disclaimer: The visit summary below is not to be considered part of the above Progress Note. 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 - Agree with admission to [facility] for further psychiatric evaluation and treatment by Dr. Ellison. Hospitalist service consulted for medical management. - Provide safe and supportive environment. - Labs obtained in ED prior to admission were unremarkable. Will monitor periodically throughout admission. - History of hyponatremia with seizure on 03/15/17 resulting in acute admission at [facility] with complete resolution. - CXR on admission revealed no acute cardiopulmonary changes. - Nursing reports recent fall during acute hospitalization at [place]. Consider CT head for further evaluation of acute behavioral changes in light of possible head injury as well as history of breast CA. - Family reports increased behaviors and agitation with Haldol and Xanax. PRN medications per Dr. Ellison. - Monitor closely as she is a high elopement risk. Hypertension with mitral valve and tricuspid valve prolapse. - Elevated blood pressure noted on admission (162/79). Monitor blood pressure closely. - Metoprolol 25mg BID initiated during acute hospitalization in [place] from 03/15-03/17/17. Monitor heart rate closely as well. - Given multivalve prolapse and hypertension, will initiate ASA daily for CAD prophylaxis. - 2+ pedal edema noted to bilateral lower extremities. Family reports patient has PRN medication for swelling but is unsure of name of drug. Will continue to monitor edema closely as well as daily weights and respiratory function. - TREMAYNE hose and elevation as tolerated. Constipation. - Encourage bowel motivation with daily miralax and senna plus PRN. Urinary retention requiring self straight cancerization twice a day with history of UTI. - UA in ED revealed 10-20 WBC with >50 squamous epithelial cells and 2+ bacteria. Patient is afebrile, asymptomatic and normal WBC. UA culture pending. - Straight cath at 0800 and 2000 daily. Bladder scan as indicated for concerns of additional retention. - Repeat UA given concern for contamination of initial sample. History of seizure secondary to hyponatremia - 03/15/17. - History consistent with unintentional dilutional hyponatremia resulting in seizure. Monitor electrolytes closely. History of breast cancer with lumpectomy, chemotherapy and radiation - 2002. Plan - 04/14/17 - Patient continues to be hyperverbal with tangental thoughts. Continue psychiatric care per Dr. Ellison and team. Provide safe and supportive environment. - CT head was obtained and negative for acute findings. - UA in ED revealed 10-20 WBC with >50 squamous epithelial cells and 2+ bacteria. Patient is afebrile, asymptomatic and normal WBC. UA culture showing early growth. Repeat UA revealed 5-10 WBC and trace bacteria. - Will initiate Keflex 500mg QID for antimicrobial coverage of urinary pathogens while awaiting culture results given persistent delirium. - Straight cath at 0800 and 2000 daily. Bladder scan as indicated for concerns of additional retention. 04/14/17 Psych: Decreased temazepam to 15mg PO q HS. Increased melatonin to 10mg PO q HS. Started Rozerem 8mg PO q HS to target insomnia (obtained informed consent from DPOA prior). Continue Seroquel 100mg PO q HS, monitoring for akathisia. 04/15/17 Psych: Discontinue temazepam, start lorazepam 1mg PO q HS to target insomnia with plan to taper/discontinue in the event that benzo is disinhibiting patient. Concern that Seroquel may be causing akathisia - consider whether mood stabilizer may be more useful. 04/16/17 Psych: MRI done today. Will encourage nursing staff to use PRN Ativan during day if needed. Will decrease Seroquel to 75mg PO q HS tonight; monitor for any improvement in restlessness 04/17/17 Psych: Pt remains tangential and hyperverbal but no behaviors noted. Continue current care. 04/18/17 Psych: Hyperverbal and tangential at times. Will start Depakote 250mg PO BID. 04/19/17 Psych: Will switch/increase Depakote to Depakote ER 750mg PO q HS to target insomnia, decrease Seroquel to 50mg PO q HS in the event it is contributing to restlessness/akathisia. Patient continues to appear quite manic. 04/19/17 Hospitalist: Discussed case with Dr. Ellis. Given she is not on metoprolol for CHF, it is not unreasonable to switch patient to atenolol. Equivalent dosing with current dose of metoprolol is Atenolol 25 mg daily. (Pharmacy confirmed.) Reviewed her urine culture which showed bacterial karma consistent with contamination. Antibiotics not indicated. Cephalexin was discontinued when culture was resulted. She had a straight catheter urinalysis the following day which was negative. If daughter feels patient is having urinary symptoms, okay to check straight cath urinalysis 04/20/17 Psych: It appears patient may have a UTI - treated with fosfomycin today while cultured for further direction. Will plan to decrease Seroquel to 25mg PO q HS, continue Depakote and plan for trough level at 1600 on 04/22. 04/21/17 Psych: It is believed delirium is most likely cause of patient's symptoms. For today, will discontinue Seroquel and schedule Ripserdal 0.5mg PO BID. Plan for VPA level and labs tomorrow at 1800. Monitor mood, behavior and response to treatment. 04/22/17 Psych: Plan for labs today: Trough VPA level, CBC, CMP, ammonia level - and adjust accordingly. Patient seems to be responding well to Risperdal. 04/23/17 Psych: Continue current care, deferring to hospitalist in regards to recent tachycardia. Family and CM are discussing discharge planning (home with supervision vs. placement in LTC facility).
--- NOTE | 2017-04-23 19:07 | Progress Note ---
- Date 04/23/17 Subjective: Yulissa is seen while sitting in the day room watching TV. She reports that she is feeling much better today and denies any concerns or complaints. No chest pain, shortness of breath, abdominal pain, nausea, vomiting or dysuria. Her appetite has been stable and bowels are moving well. Heart rate has been elevated today at 112 with slight elevation in blood pressure with systolic pressure in the 140's. Objective Vital signs: Temperature 97.1 F 04/23/17 15:55 Pulse Rate 115 H 04/23/17 15:55 Respiratory Rate 16 04/23/17 15:55 Blood Pressure 144/97 H 04/23/17 15:55 Pulse Oximetry 98 04/23/17 15:55 Height/Weight/BMI: Height 5 ft 1 in Weight 147 lb 4.8 oz Body Mass Index 28.5 Comments: sitting in chair, watching TV. - Constitutional Present: no acute distress, well nourished, well developed, cooperative - Routine HEENT Exam Head: Present: normocephalic, atraumatic Eye: Present: PERRL. Absent: conjunctival icterus ENT: Present: mucous membranes moist - Routine Respiratory Exam Present: CTA bilaterally. Absent: rhonchi, stridor, wheezes, crackles - Routine Cardiovascular Exam Present: S1, S2, tachycardia - Routine Abdominal Exam Present: soft, normoactive bowel sounds, non distended, non tender - Routine Extremities Exam Present: edema (2+), non tender, full ROM. Absent: calf tenderness - Routine Back/Spine/Pelvis Exam Back/Spine: Present: full ROM. Absent: vertebral tenderness - Routine Musculoskeletal Exam Musculoskeletal: Present: moving extremities well - Routine Skin Exam Present: dry. Absent: warm, jaundice - Routine Neurological Exam Present: alert, moving all extremities - Routine Lymphatic Exam Lymphatic: Absent: lymphedema - Routine Psychiatric Exam Present: cooperative Results - Labs CBC & Chem 7: 04/22/17 18:56 04/22/17 18:56 Microbiology Results: Microbiology 04/19/17 21:00 Urine, Cath Straight Urine Culture - Final Gram Positive Nima Assessment and Plan (1) Dementia with behavioral disturbance Current visit: Yes Status: Acute (2) Acute psychosis Problem details: R/O Delirium due to multiple etiologies (primarily medication- induced, may also be related to UTI) R/O Major neurocognitive disorder Current visit: Yes Status: Acute Assessment and Plan: Assessment Sinus tachycardia - not POA (following recent change in beta ana) Acute psychosis with restless and paranoia. Dementia with acute behavioral disturbance. Hypertension. Mitral valve and tricuspid valve prolapse. Constipation. Urinary retention requiring self straight catheterization twice a day. History of breast cancer with lumpectomy, chemotherapy and radiation - 2002. History of seizure secondary to hyponatremia - 03/15/17. History of UTI. Plan - 04/23/17. Patient noted to have tachycardia today with heart rate 112-115. Will increase atenolol to 50mg daily and continue to monitor closely. Monitor closely for hypotension with increased dose. Overall, she reports feeling better. Continue psychiatric care per Dr. Ellison and team. Continue to provide safe and supportive environment. Nurse's notes, psychiatric notes, labs from yesterday, and vital signs reviewed. Resuscitation Status: Full Code - Time spent with patient Time with patient PN: 25 minutes - Physician Narrative Physician: Luis Pimentel MD Narrative: Date: 04/23/17 Time: 190 Hospital Course Summary Disclaimer: The visit summary below is not to be considered part of the above Progress Note. 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 - Agree with admission to [facility] for further psychiatric evaluation and treatment by Dr. Ellison. Hospitalist service consulted for medical management. - Provide safe and supportive environment. - Labs obtained in ED prior to admission were unremarkable. Will monitor periodically throughout admission. - History of hyponatremia with seizure on 03/15/17 resulting in acute admission at [facility] with complete resolution. - CXR on admission revealed no acute cardiopulmonary changes. - Nursing reports recent fall during acute hospitalization at [place]. Consider CT head for further evaluation of acute behavioral changes in light of possible head injury as well as history of breast CA. - Family reports increased behaviors and agitation with Haldol and Xanax. PRN medications per Dr. Ellison. - Monitor closely as she is a high elopement risk. Hypertension with mitral valve and tricuspid valve prolapse. - Elevated blood pressure noted on admission (162/79). Monitor blood pressure closely. - Metoprolol 25mg BID initiated during acute hospitalization in [place] from 03/15-03/17/17. Monitor heart rate closely as well. - Given multivalve prolapse and hypertension, will initiate ASA daily for CAD prophylaxis. - 2+ pedal edema noted to bilateral lower extremities. Family reports patient has PRN medication for swelling but is unsure of name of drug. Will continue to monitor edema closely as well as daily weights and respiratory function. - TREMAYNE hose and elevation as tolerated. Constipation. - Encourage bowel motivation with daily miralax and senna plus PRN. Urinary retention requiring self straight cancerization twice a day with history of UTI. - UA in ED revealed 10-20 WBC with >50 squamous epithelial cells and 2+ bacteria. Patient is afebrile, asymptomatic and normal WBC. UA culture pending. - Straight cath at 0800 and 2000 daily. Bladder scan as indicated for concerns of additional retention. - Repeat UA given concern for contamination of initial sample. History of seizure secondary to hyponatremia - 03/15/17. - History consistent with unintentional dilutional hyponatremia resulting in seizure. Monitor electrolytes closely. History of breast cancer with lumpectomy, chemotherapy and radiation - 2002. Plan - 04/14/17 - Patient continues to be hyperverbal with tangental thoughts. Continue psychiatric care per Dr. Ellison and team. Provide safe and supportive environment. - CT head was obtained and negative for acute findings. - UA in ED revealed 10-20 WBC with >50 squamous epithelial cells and 2+ bacteria. Patient is afebrile, asymptomatic and normal WBC. UA culture showing early growth. Repeat UA revealed 5-10 WBC and trace bacteria. - Will initiate Keflex 500mg QID for antimicrobial coverage of urinary pathogens while awaiting culture results given persistent delirium. - Straight cath at 0800 and 2000 daily. Bladder scan as indicated for concerns of additional retention. 04/14/17 Psych: Decreased temazepam to 15mg PO q HS. Increased melatonin to 10mg PO q HS. Started Rozerem 8mg PO q HS to target insomnia (obtained informed consent from [facility]PO[facility] prior). Continue Seroquel 100mg PO q HS, monitoring for akathisia. 04/15/17 Psych: Discontinue temazepam, start lorazepam 1mg PO q HS to target insomnia with plan to taper/discontinue in the event that benzo is disinhibiting patient. Concern that Seroquel may be causing akathisia - consider whether mood stabilizer may be more useful. 04/16/17 Psych: MRI done today. Will encourage nursing staff to use PRN Ativan during day if needed. Will decrease Seroquel to 75mg PO q HS tonight; monitor for any improvement in restlessness 04/17/17 Psych: Pt remains tangential and hyperverbal but no behaviors noted. Continue current care. 04/18/17 Psych: Hyperverbal and tangential at times. Will start Depakote 250mg PO BID. 04/19/17 Psych: Will switch/increase Depakote to Depakote ER 750mg PO q HS to target insomnia, decrease Seroquel to 50mg PO q HS in the event it is contributing to restlessness/akathisia. Patient continues to appear quite manic. 04/19/17 Hospitalist: Discussed case with Dr. Ellis. Given she is not on metoprolol for CHF, it is not unreasonable to switch patient to atenolol. Equivalent dosing with current dose of metoprolol is Atenolol 25 mg daily. (Pharmacy confirmed.) Reviewed her urine culture which showed bacterial karma consistent with contamination. Antibiotics not indicated. Cephalexin was discontinued when culture was resulted. She had a straight catheter urinalysis the following day which was negative. If daughter feels patient is having urinary symptoms, okay to check straight cath urinalysis 04/20/17 Psych: It appears patient may have a UTI - treated with fosfomycin today while cultured for further direction. Will plan to decrease Seroquel to 25mg PO q HS, continue Depakote and plan for trough level at 1600 on 04/22. 04/21/17 Psych: It is believed delirium is most likely cause of patient's symptoms. For today, will discontinue Seroquel and schedule Ripserdal 0.5mg PO BID. Plan for VPA level and labs tomorrow at 1800. Monitor mood, behavior and response to treatment. 04/22/17 Psych: Plan for labs today: Trough VPA level, CBC, CMP, ammonia level - and adjust accordingly. Patient seems to be responding well to Risperdal. 04/23/17 Psych: Continue current care, deferring to hospitalist in regards to recent tachycardia. Family and CM are discussing discharge planning (home with supervision vs. placement in LTC facility). Plan - 04/23/17. Patient noted to have tachycardia today with heart rate 112-115. Will increase atenolol to 50mg daily and continue to monitor closely. Monitor closely for hypotension with increased dose. Overall, she reports feeling better. Continue psychiatric care per Dr. Ellison and team. Continue to provide safe and supportive environment. Nurse's notes, psychiatric notes, labs from yesterday, and vital signs reviewed.
[2017-04-23] MEDS: RAMELTEON 8 MG PO SCH (21:35)
[2017-04-23] MEDS: LORazepam 1 MG TABLET PO SCH (21:35)
[2017-04-24] MEDS: ASPIRIN 325 MG TABLET PO SCH (08:44)
[2017-04-24] MEDS: ATENOLOL 50 MG TABLET PO SCH (08:44)
[2017-04-24] MEDS: POLYETHYL GLYCOL 3350 17gm PACKET PO SCH (08:44)
[2017-04-24] MEDS: RisperiDONE 0.5 MG TABLET PO SCH ×3 (08:45→20:05)
--- NOTE | 2017-04-24 10:19 | Neuropsych Progress Note ---
[facility] Subjective Date: 04/24/17 - Sujective/Severity of Illness Medications: Acetaminophen (Tylenol) 1,000 mg PO PRN PRN PRN Reason: Pain Last Admin: 04/19/17 00:38 Dose: 1,000 mg Aspirin (Asa) 325 mg PO DAILY [facility] Last Admin: 04/24/17 08:44 Dose: 325 mg Atenolol (Tenormin) 50 mg PO DAILY [facility] Last Admin: 04/24/17 08:44 Dose: 50 mg Bisacodyl (Dulcolax) 10 mg RECTALLY DAILY PRN PRN Reason: Constipation Last Admin: 04/14/17 06:26 Dose: 10 mg Divalproex Sodium (Depakote Er) 750 mg PO [facility] Last Admin: 04/23/17 21:35 Dose: 750 mg Lorazepam (Ativan) 0.5 mg PO Q6H PRN PRN Reason: Extreme agitation Last Admin: 04/20/17 23:27 Dose: 0.5 mg Lorazepam (Ativan Inj) 0.5 mg IM Q6H PRN PRN Reason: Extreme agitation Lorazepam (Ativan) 1 mg PO [facility] Last Admin: 04/23/17 21:35 Dose: 1 mg Magnesium Hydroxide (Mom) 30 ml PO DAILY PRN PRN Reason: Constipation Last Admin: 04/18/17 20:18 Dose: 30 ml Pom Roserem 8mg (Tablet) 1 each PO [facility] Last Admin: 04/23/17 21:35 Dose: 1 each Polyethylene Glycol (Miralax) 17 gm PO DAILY [facility] Last Admin: 04/24/17 08:44 Dose: Not Given Risperidone (Risperdal) 0.5 mg PO BID [facility] Last Admin: 04/24/17 08:45 Dose: 0.5 mg Senna/Docusate Sodium (Senna Plus Tablet) 1 tab PO BID PRN PRN Reason: Constipation Last Admin: 04/19/17 08:17 Dose: 1 tab Sodium Chloride (Iv Flush) 10 ml IV PRN PRN PRN Reason: Flushing Last Admin: 04/16/17 12:05 Dose: 10 ml Subjective: Patient seen and chart reviewed. Nursing reports pt is doing well. Sleeping better and has a good appetite. No behaviors noted. On face to face the pt states she feels tired but she feels better. She reports her mood is stable and she denies any S/I. Some delusions but they are improved. Tolerating meds Start Time: 10:15 Stop Time: 10:30 Mental Status Exam Vitals: Last Vital Signs Temp 97.2 F 04/24/17 08:00 Pulse 125 H 04/24/17 08:00 Resp 16 04/24/17 08:00 BP 141/80 H 04/24/17 08:00 Pulse Ox 97 04/24/17 08:00 Height: 1.55 m Weight: 66.814 kg - Mental Status Exam Muscle Strength/Tone: Normal Dressing: Casual Grooming: Good Attitude: Cooperative Motor Activity: Normal Eye Contact: Good Speech: Normal Volume: Normal Rhythm: Appropriate Rhythm Orientation: Disoriented to time ("March 2017"), Disoriented to place ( "[place]"), Oriented to person Mood: Euthymic Rate of Thoughts: Appropriate Rate Thought Organization: Organized Associations: Intact Abstract Reasoning: Poor abstract reasoning Thought Content: Normal Perception/Psychotic: Hx psychosis, not current Language: Naming Intact Fund of Knowledge: Other (Decreased from baseline (above average pre-morbidly)) Memory: Poor-immediate, Poor-recent Suicidal Ideation: Denies Homicidal Ideation: Denies Insight: Impaired Judgement: Impaired Impulse Control: Good - Laboratory Result Diagrams: 04/22/17 18:56 04/22/17 18:56 Assessment and Plan (1) Delirium due to multiple etiologies Current visit: Yes Status: Resolved (2) Major neurocognitive disorder Problem details: Suspected, probable vascular etiology Current visit: Yes Status: Acute (3) 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 - Agree with admission to [facility] for further psychiatric evaluation and treatment by Dr. Ellison. Hospitalist service consulted for medical management. - Provide safe and supportive environment. - Labs obtained in ED prior to admission were unremarkable. Will monitor periodically throughout admission. - History of hyponatremia with seizure on 03/15/17 resulting in acute admission at [facility] with complete resolution. - CXR on admission revealed no acute cardiopulmonary changes. - Nursing reports recent fall during acute hospitalization at [place]. Consider CT head for further evaluation of acute behavioral changes in light of possible head injury as well as history of breast CA. - Family reports increased behaviors and agitation with Haldol and Xanax. PRN medications per Dr. Ellison. - Monitor closely as she is a high elopement risk. Hypertension with mitral valve and tricuspid valve prolapse. - Elevated blood pressure noted on admission (162/79). Monitor blood pressure closely. - Metoprolol 25mg BID initiated during acute hospitalization in [place] from 03/15-03/17/17. Monitor heart rate closely as well. - Given multivalve prolapse and hypertension, will initiate ASA daily for CAD prophylaxis. - 2+ pedal edema noted to bilateral lower extremities. Family reports patient has PRN medication for swelling but is unsure of name of drug. Will continue to monitor edema closely as well as daily weights and respiratory function. - TREMAYNE hose and elevation as tolerated. Constipation. - Encourage bowel motivation with daily miralax and senna plus PRN. Urinary retention requiring self straight cancerization twice a day with history of UTI. - UA in ED revealed 10-20 WBC with >50 squamous epithelial cells and 2+ bacteria. Patient is afebrile, asymptomatic and normal WBC. UA culture pending. - Straight cath at 0800 and 2000 daily. Bladder scan as indicated for concerns of additional retention. - Repeat UA given concern for contamination of initial sample. History of seizure secondary to hyponatremia - 03/15/17. - History consistent with unintentional dilutional hyponatremia resulting in seizure. Monitor electrolytes closely. History of breast cancer with lumpectomy, chemotherapy and radiation - 2002. Plan - 04/14/17 - Patient continues to be hyperverbal with tangental thoughts. Continue psychiatric care per Dr. Ellison and team. Provide safe and supportive environment. - CT head was obtained and negative for acute findings. - UA in ED revealed 10-20 WBC with >50 squamous epithelial cells and 2+ bacteria. Patient is afebrile, asymptomatic and normal WBC. UA culture showing early growth. Repeat UA revealed 5-10 WBC and trace bacteria. - Will initiate Keflex 500mg QID for antimicrobial coverage of urinary pathogens while awaiting culture results given persistent delirium. - Straight cath at 0800 and 2000 daily. Bladder scan as indicated for concerns of additional retention. 04/14/17 Psych: Decreased temazepam to 15mg PO q HS. Increased melatonin to 10mg PO q HS. Started Rozerem 8mg PO q HS to target insomnia (obtained informed consent from [facility]POA prior). Continue Seroquel 100mg PO q HS, monitoring for akathisia. 04/15/17 Psych: Discontinue temazepam, start lorazepam 1mg PO q HS to target insomnia with plan to taper/discontinue in the event that benzo is disinhibiting patient. Concern that Seroquel may be causing akathisia - consider whether mood stabilizer may be more useful. 04/16/17 Psych: MRI done today. Will encourage nursing staff to use PRN Ativan during day if needed. Will decrease Seroquel to 75mg PO q HS tonight; monitor for any improvement in restlessness 04/17/17 Psych: Pt remains tangential and hyperverbal but no behaviors noted. Continue current care. 04/18/17 Psych: Hyperverbal and tangential at times. Will start Depakote 250mg PO BID. 04/19/17 Psych: Will switch/increase Depakote to Depakote ER 750mg PO q HS to target insomnia, decrease Seroquel to 50mg PO q HS in the event it is contributing to restlessness/akathisia. Patient continues to appear quite manic. 04/19/17 Hospitalist: Discussed case with Dr. Ellis. Given she is not on metoprolol for CHF, it is not unreasonable to switch patient to atenolol. Equivalent dosing with current dose of metoprolol is Atenolol 25 mg daily. (Pharmacy confirmed.) Reviewed her urine culture which showed bacterial karma consistent with contamination. Antibiotics not indicated. Cephalexin was discontinued when culture was resulted. She had a straight catheter urinalysis the following day which was negative. If daughter feels patient is having urinary symptoms, okay to check straight cath urinalysis 04/20/17 Psych: It appears patient may have a UTI - treated with fosfomycin today while cultured for further direction. Will plan to decrease Seroquel to 25mg PO q HS, continue Depakote and plan for trough level at 1600 on 04/22. 04/21/17 Psych: It is believed delirium is most likely cause of patient's symptoms. For today, will discontinue Seroquel and schedule Ripserdal 0.5mg PO BID. Plan for VPA level and labs tomorrow at 1800. Monitor mood, behavior and response to treatment. 04/22/17 Psych: Plan for labs today: Trough VPA level, CBC, CMP, ammonia level - and adjust accordingly. Patient seems to be responding well to Risperdal. 04/23/17 Psych: Continue current care, deferring to hospitalist in regards to recent tachycardia. Family and CM are discussing discharge planning (home with supervision vs. placement in LTC facility). Plan - 04/23/17. Patient noted to have tachycardia today with heart rate 112-115. Will increase atenolol to 50mg daily and continue to monitor closely. Monitor closely for hypotension with increased dose. Overall, she reports feeling better. Continue psychiatric care per Dr. Ellison and team. Continue to provide safe and supportive environment. Nurse's notes, psychiatric notes, labs from yesterday, and vital signs reviewed. 04/24/17 Psych- Pt doing well. Continue current care
[2017-04-24] MEDS: RAMELTEON 8 MG PO SCH ×2 (19:49→20:05)
[2017-04-24] MEDS: LORazepam 1 MG TABLET PO SCH ×2 (19:49→20:05)
--- NOTE | 2017-04-25 09:53 | Neuropsych Progress Note ---
[facility] Subjective Date: 04/25/17 - Sujective/Severity of Illness Medications: Acetaminophen (Tylenol) 1,000 mg PO PRN PRN PRN Reason: Pain Last Admin: 04/19/17 00:38 Dose: 1,000 mg Aspirin (Asa) 325 mg PO DAILY [facility] Last Admin: 04/24/17 08:44 Dose: 325 mg Atenolol (Tenormin) 50 mg PO DAILY [facility] Last Admin: 04/24/17 08:44 Dose: 50 mg Bisacodyl (Dulcolax) 10 mg RECTALLY DAILY PRN PRN Reason: Constipation Last Admin: 04/14/17 06:26 Dose: 10 mg Divalproex Sodium (Depakote Er) 750 mg PO [facility] Last Admin: 04/24/17 20:05 Dose: Not Given Lorazepam (Ativan) 0.5 mg PO Q6H PRN PRN Reason: Extreme agitation Last Admin: 04/20/17 23:27 Dose: 0.5 mg Lorazepam (Ativan Inj) 0.5 mg IM Q6H PRN PRN Reason: Extreme agitation Lorazepam (Ativan) 1 mg PO [facility] Last Admin: 04/24/17 20:05 Dose: Not Given Magnesium Hydroxide (Mom) 30 ml PO DAILY PRN PRN Reason: Constipation Last Admin: 04/18/17 20:18 Dose: 30 ml Pom Roserem 8mg (Tablet) 1 each PO [facility] Last Admin: 04/24/17 20:05 Dose: Not Given Polyethylene Glycol (Miralax) 17 gm PO DAILY [facility] Last Admin: 04/24/17 08:44 Dose: Not Given Risperidone (Risperdal) 0.5 mg PO BID [facility] Last Admin: 04/24/17 20:05 Dose: Not Given Senna/Docusate Sodium (Senna Plus Tablet) 1 tab PO BID PRN PRN Reason: Constipation Last Admin: 04/19/17 08:17 Dose: 1 tab Sodium Chloride (Iv Flush) 10 ml IV PRN PRN PRN Reason: Flushing Last Admin: 04/16/17 12:05 Dose: 10 ml Subjective: Patient seen and chart reviewed. Nursing reports pt is doing well. Sleeping well and having a good appetite. No behaviors noted. On face to face the pt states she is doing well. She continues to be confused and thinks this life underwriter did her heart and cataract surgery. She denies any S/I. Tolerating meds Start Time: 10:15 Stop Time: 10:30 Mental Status Exam Vitals: Last Vital Signs Temp 97.5 F 04/25/17 08:00 Pulse 98 04/25/17 08:00 Resp 22 04/25/17 08:00 BP 140/72 H 04/25/17 08:00 Pulse Ox 98 04/25/17 08:00 Height: 1.55 m Weight: 66.814 kg - Mental Status Exam Muscle Strength/Tone: Normal Dressing: Casual Grooming: Good Attitude: Cooperative Motor Activity: Normal Eye Contact: Good Speech: Normal Volume: Normal Rhythm: Appropriate Rhythm Orientation: Disoriented to time ("March 2017"), Disoriented to place ( "[place]"), Oriented to person Mood: Euthymic Rate of Thoughts: Appropriate Rate Thought Organization: Organized Associations: Intact Abstract Reasoning: Poor abstract reasoning Thought Content: Normal Perception/Psychotic: Hx psychosis, not current Language: Naming Intact Fund of Knowledge: Other (Decreased from baseline (above average pre-morbidly)) Memory: Poor-immediate, Poor-recent Suicidal Ideation: Denies Homicidal Ideation: Denies Insight: Impaired Judgement: Impaired Impulse Control: Good - Laboratory Result Diagrams: 04/22/17 18:56 04/22/17 18:56 Laboratory Results - last 24 hr 04/24/17 13:23 Ur Collection Type Urine, cath straight Urine Color Yellow Urine Clarity Clear Urine pH 7.0 Ur Specific [place] 1.010 L Urine Protein Negative Urine Glucose (UA) Negative Urine Ketones Negative Urine Occult Blood Trace-intact Urine Nitrate Negative Urine Bilirubin Negative Urine Urobilinogen 0.2 Ur Leukocyte Esterase Negative Urinalysis Comment Microscopic not ind. 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 - Agree with admission to [facility] for further psychiatric evaluation and treatment by Dr. Ellison. Hospitalist service consulted for medical management. - Provide safe and supportive environment. - Labs obtained in ED prior to admission were unremarkable. Will monitor periodically throughout admission. - History of hyponatremia with seizure on 03/15/17 resulting in acute admission at [facility] with complete resolution. - CXR on admission revealed no acute cardiopulmonary changes. - Nursing reports recent fall during acute hospitalization at [place]. Consider CT head for further evaluation of acute behavioral changes in light of possible head injury as well as history of breast CA. - Family reports increased behaviors and agitation with Haldol and Xanax. PRN medications per Dr. Ellison. - Monitor closely as she is a high elopement risk. Hypertension with mitral valve and tricuspid valve prolapse. - Elevated blood pressure noted on admission (162/79). Monitor blood pressure closely. - Metoprolol 25mg BID initiated during acute hospitalization in [place] from 03/15-03/17/17. Monitor heart rate closely as well. - Given multivalve prolapse and hypertension, will initiate ASA daily for CAD prophylaxis. - 2+ pedal edema noted to bilateral lower extremities. Family reports patient has PRN medication for swelling but is unsure of name of drug. Will continue to monitor edema closely as well as daily weights and respiratory function. - TREMAYNE hose and elevation as tolerated. Constipation. - Encourage bowel motivation with daily miralax and senna plus PRN. Urinary retention requiring self straight cancerization twice a day with history of UTI. - UA in ED revealed 10-20 WBC with >50 squamous epithelial cells and 2+ bacteria. Patient is afebrile, asymptomatic and normal WBC. UA culture pending. - Straight cath at 0800 and 2000 daily. Bladder scan as indicated for concerns of additional retention. - Repeat UA given concern for contamination of initial sample. History of seizure secondary to hyponatremia - 03/15/17. - History consistent with unintentional dilutional hyponatremia resulting in seizure. Monitor electrolytes closely. History of breast cancer with lumpectomy, chemotherapy and radiation - 2002. Plan - 04/14/17 - Patient continues to be hyperverbal with tangental thoughts. Continue psychiatric care per Dr. Ellison and team. Provide safe and supportive environment. - CT head was obtained and negative for acute findings. - UA in ED revealed 10-20 WBC with >50 squamous epithelial cells and 2+ bacteria. Patient is afebrile, asymptomatic and normal WBC. UA culture showing early growth. Repeat UA revealed 5-10 WBC and trace bacteria. - Will initiate Keflex 500mg QID for antimicrobial coverage of urinary pathogens while awaiting culture results given persistent delirium. - Straight cath at 0800 and 2000 daily. Bladder scan as indicated for concerns of additional retention. 04/14/17 Psych: Decreased temazepam to 15mg PO q HS. Increased melatonin to 10mg PO q HS. Started Rozerem 8mg PO q HS to target insomnia (obtained informed consent from [facility] prior). Continue Seroquel 100mg PO q HS, monitoring for akathisia. 04/15/17 Psych: Discontinue temazepam, start lorazepam 1mg PO q HS to target insomnia with plan to taper/discontinue in the event that benzo is disinhibiting patient. Concern that Seroquel may be causing akathisia - consider whether mood stabilizer may be more useful. 04/16/17 Psych: MRI done today. Will encourage nursing staff to use PRN Ativan during day if needed. Will decrease Seroquel to 75mg PO q HS tonight; monitor for any improvement in restlessness 04/17/17 Psych: Pt remains tangential and hyperverbal but no behaviors noted. Continue current care. 04/18/17 Psych: Hyperverbal and tangential at times. Will start Depakote 250mg PO BID. 04/19/17 Psych: Will switch/increase Depakote to Depakote ER 750mg PO q HS to target insomnia, decrease Seroquel to 50mg PO q HS in the event it is contributing to restlessness/akathisia. Patient continues to appear quite manic. 04/19/17 Hospitalist: Discussed case with Dr. Ellis. Given she is not on metoprolol for CHF, it is not unreasonable to switch patient to atenolol. Equivalent dosing with current dose of metoprolol is Atenolol 25 mg daily. (Pharmacy confirmed.) Reviewed her urine culture which showed bacterial karma consistent with contamination. Antibiotics not indicated. Cephalexin was discontinued when culture was resulted. She had a straight catheter urinalysis the following day which was negative. If daughter feels patient is having urinary symptoms, okay to check straight cath urinalysis 04/20/17 Psych: It appears patient may have a UTI - treated with fosfomycin today while cultured for further direction. Will plan to decrease Seroquel to 25mg PO q HS, continue Depakote and plan for trough level at 1600 on 04/22. 04/21/17 Psych: It is believed delirium is most likely cause of patient's symptoms. For today, will discontinue Seroquel and schedule Ripserdal 0.5mg PO BID. Plan for VPA level and labs tomorrow at 1800. Monitor mood, behavior and response to treatment. 04/22/17 Psych: Plan for labs today: Trough VPA level, CBC, CMP, ammonia level - and adjust accordingly. Patient seems to be responding well to Risperdal. 04/23/17 Psych: Continue current care, deferring to hospitalist in regards to recent tachycardia. Family and CM are discussing discharge planning (home with supervision vs. placement in LTC facility). Plan - 04/23/17. Patient noted to have tachycardia today with heart rate 112-115. Will increase atenolol to 50mg daily and continue to monitor closely. Monitor closely for hypotension with increased dose. Overall, she reports feeling better. Continue psychiatric care per Dr. Ellison and team. Continue to provide safe and supportive environment. Nurse's notes, psychiatric notes, labs from yesterday, and vital signs reviewed. 04/24/17 Psych- Pt doing well. Continue current care 04/25/17 Psych- Doing well. Continue current care
[2017-04-25] MEDS: ASPIRIN 325 MG TABLET PO SCH (10:09)
[2017-04-25] MEDS: ATENOLOL 50 MG TABLET PO SCH (10:09)
[2017-04-25] MEDS: RisperiDONE 0.5 MG TABLET PO SCH ×2 (10:09→20:16)
[2017-04-25] MEDS: POLYETHYL GLYCOL 3350 17gm PACKET PO SCH (10:10)
[2017-04-25] MEDS: LORazepam 1 MG TABLET PO SCH (20:15)
[2017-04-25] MEDS: RAMELTEON 8 MG PO SCH (20:16)
[2017-04-25 20:33] VITALS: RESP 20
[2017-04-26 08:05] VITALS: BP 142/67; PULSE 93; TEMP 98; O2SAT 96
[2017-04-26] MEDS: ATENOLOL 50 MG TABLET PO SCH (08:12)
[2017-04-26] MEDS: POLYETHYL GLYCOL 3350 17gm PACKET PO SCH (08:12)
[2017-04-26] MEDS: ASPIRIN 325 MG TABLET PO SCH (08:12)
[2017-04-26] MEDS: RisperiDONE 0.5 MG TABLET PO SCH (08:12)
== END 2017-04-26 13:45 | disposition home or self-care (01) | DRG 880 ==
LOC: ED 10:32 → GEN 13:27
PROVIDERS: ADMIT Psychiatry & Neurology Psychiatry; ATTEND Psychiatry & Neurology Psychiatry